=== PATIENT | male | born 1960 | race Caucasian/White ===

== ENCOUNTER 2016-07-22 11:59 | Emergency (ER) | payer MEDICARE, OTHER ==
[~2016-07-22] VITALS: Ht 170.2 cm; Wt 93.9 kg
[~2016-07-22 11:59] MED LIST: ACHD5005 PO; ASP81TEC PO; ASPI-999 PO; BSP5T PO; CEPH500C PO; FLUT9.9S NSEACH; FRSM40T PO; FURO40TA4 PO; HYDR50TA76 PO; LEVO50TA6 PO; LORA10TA7 PO; LOSA100T28 PO; LVT.05T PO; METH4TAB PO; METO-333 PO; METO25TA PO; NF-ESOM40C PO; NFVALS90T PO; PENI500T PO; POTA10TA10 PO; SERT100T8 PO; SIMV40TA2 PO; SIMV40TA4 PO; SRTR100T PO; SULF1TAB38 PO; ZPR40C PO
--- NOTE | 2016-07-22 12:05 | ED Cardiac General ---
History of Present Illness General Chief Complaint: Cardiac/General Problems Stated Complaint: LOW HR Source: patient Exam Limitations: no limitations History of Present Illness Time seen by provider: 12:02 Initial Comments Sent to ER from mental health clinic whom he sees for schizophrenia with reports of bradycardia. They routinely check vital signs during visits and found his pulse to be around 40s, did an EKG which showed a heart rate of 38. Patient was then sent here via private vehicle. He is asymptomatic and denies chest pain or shortness of breath, no syncope or near syncope. He states that he is fatigued but he just worked all night last night and has not yet been to bed. No history of this but he does see Dr. Horta for hypertension and "enlarged heart". He is currently on hydrocodone and amoxicillin for an abscessed tooth. He states "I feel fine". He is on Norvasc 2.5 mg daily and metoprolol 50 mg by mouth twice a day. Timing/Duration: other Severity: moderate Activities at Onset: none NTG SL FORM CARPENTER: No ASA po FORM CARPENTER: No Associated Systoms: Denies Symptoms Allergies and Home Medications Allergies Coded Allergies: No Known Drug Allergies (Unverified , 05/15/10) Home Medications Aspirin 81 Mg Tab.chew, 81 MG PO DAILY@1730, #14 Prescribed by: JUANITA ABBASI on 04/21/16 0718 Furosemide 40 Mg Tablet, 40 MG PO DAILY, #20 Prescribed by: JUANITA ABBASI on 04/21/16 0718 Levothyroxine Sodium 50 Mcg Tablet, 50 MCG PO DAILY, #20 Prescribed by: JUANITA ABBASI on 04/21/16 0718 Losartan Potassium 100 Mg Tablet, 100 MG PO DAILY@1730, (Reported) Metoprolol Tartrate 25 Mg Tablet, 25 MG PO BID, #20 LAST FILLED 02/17/16 #60 Prescribed by: JUANITA ABBASI on 04/21/16 0718 Potassium Chloride 10 Meq Tablet.er, 10 MEQ PO DAILY, #15 Prescribed by: JUANITA ABBASI on 04/21/16 0718 Sertraline HCl 100 Mg Tablet, 100 MG PO DAILY@1730, (Reported) Simvastatin 40 Mg Tablet, 40 MG PO DAILY@1730, (Reported) Ziprasidone 40 Mg Cap, 40 MG PO DAILY, (Reported) Ziprasidone 40 Mg Cap, 80 MG PO DAILY@1730, (Reported) TAKES 2 (40 MG) CAPSULES Review of Systems Constitutional: no symptoms reported, see HPI EENTM: No Symptoms Reported Respiratory: No Symptoms Reported Cardiovascular: No Symptoms Reported, Denies Chest Pain, Denies Edema, Denies Irregular Heart Rate, Denies Lightheadedness, Denies Palpitations, Denies Syncope Gastrointestinal: No Symptoms Reported Genitourinary: No Symptoms Reported Musculoskeletal: no symptoms reported Skin: no symptoms reported Psychiatric/Neurological: No Symptoms Reported Endocrine: No Symptoms Reported Past Aukrtsc-Qrmmhb-Thufcl Hx Patient Social History Type Used: Cigarettes Recent Hopitalizations: No Immunizations Up To Date Tetanus Booster (TDap): Less than 5yrs Date of Pneumonia Vaccine: Feb 01, 2012 Date of Influenza Vaccine: Mar 03, 2016 Seasonal Allergies Seasonal Allergies: Yes Surgeries HX Surgeries: Yes Surgeries: Appendectomy Respiratory Hx Respiratory Disorders: No Respiratory Disorders: Sleep Apnea Cardiovascular Hx Cardiac Disorders: Yes Cardiac Disorders: Heart Murmur, High Cholesterol, Hypertension Neurological Hx Neurological Disorders: No Reproductive System Hx Reproductive Disorders: No Genitourinary Hx Genitourinary Disorders: No Gastrointestinal Hx Gastrointestinal Disorders: No Gastrointestinal Disorders: Gastroesophageal Reflux Musculoskeletal Hx Musculoskeletal Disorders: Yes Musculoskeletal Disorders: Arthritis Endocrine Hx Endocrine Disorders: Yes Endocrine Disorders: Hypothyroidsim HEENT HX ENT Disorders: Yes HEENT Disorders: Glaucoma Loss of Vision: Denies Hearing Impairment: Denies Cancer Hx Cancer: No Psychosocial Hx Psychiatric Problems: Yes Behavioral Health Disorders: Anxiety, Depression Integumentary HX Skin/Integumentary Disorder: No Blood Transfusions Hx Blood Disorders: No Adverse Reaction to a Blood Tr: No Family Medical History Significant Family History: Heart Disease, Hypertension, Stroke Family Medial History: Physical Exam Vital Signs Vital Sign - Last 12Hours 07/22/16 12:02 Temp 97.9 Pulse 45 Resp 12 B/P (MAP) 164/122 Pulse Ox 95 O2 Delivery Room Air Capillary Refill : General Appearance: No Apparent Distress, WD/WN, Other (alert, talkative and without complaint) HEENT: PERRL/EOMI, TMs Normal Neck: Full Range of Motion, Normal Inspection Respiratory: Normal Breath Sounds, No Accessory Muscle Use, No Respiratory Distress Cardiovascular: No Murmur, Normal Peripheral Pulses, Bradycardia Gastrointestinal: Normal Bowel Sounds, Non Tender, Soft Extremity: Normal Capillary Refill, Normal Inspection Neurologic/Psychiatric: Alert, Oriented x3, No Motor/Sensory Deficits Skin: Normal Color, Warm/Dry Progress/Results/Core Measures Results/Orders Lab Results Laboratory Tests Test 07/22/16 12:00 Range/Units White Blood Count 8.0 4.3-11.0 10^3/uL Red Blood Count 4.74 4.35-5.85 10^6/uL Hemoglobin 14.4 13.3-17.7 G/DL Hematocrit 42 40-54 % Mean Corpuscular Volume 89 80-99 FL Mean Corpuscular Hemoglobin 30 25-34 PG Mean Corpuscular Hemoglobin Concent 34 32-36 G/DL Red Cell Distribution Width 13.6 10.0-14.5 % Platelet Count 177 130-400 10^3/uL Mean Platelet Volume 10.6 H 7.4-10.4 FL Neutrophils (%) (Auto) 57 42-75 % Lymphocytes (%) (Auto) 28 12-44 % Monocytes (%) (Auto) 12 0-12 % Eosinophils (%) (Auto) 3 0-10 % Basophils (%) (Auto) 0 0-10 % Neutrophils # (Auto) 4.5 1.8-7.8 X 10^3 Lymphocytes # (Auto) 2.2 1.0-4.0 X 10^3 Monocytes # (Auto) 1.0 0.0-1.0 X 10^3 Eosinophils # (Auto) 0.2 0.0-0.3 10^3/uL Basophils # (Auto) 0.0 0.0-0.1 10^3/uL Sodium Level 140 135-145 MMOL/L Potassium Level 4.1 3.6-5.0 MMOL/L Chloride Level 103 98-107 MMOL/L Carbon Dioxide Level 30 21-32 MMOL/L Anion Gap 7 5-14 MMOL/L Blood Urea Nitrogen 12 7-18 MG/DL Creatinine 1.00 0.60-1.30 MG/DL Estimat Glomerular Filtration Rate > 60 BUN/Creatinine Ratio 12 Glucose Level 95 70-105 MG/DL Calcium Level 9.0 8.5-10.1 MG/DL Magnesium Level 2.3 1.8-2.4 MG/DL Total Bilirubin 1.2 H 0.1-1.0 MG/DL Aspartate Amino Transf (AST/SGOT) 25 5-34 U/L Alanine Aminotransferase (ALT/SGPT) 20 0-55 U/L Alkaline Phosphatase 46 40-136 U/L Troponin I < 0.30 <0.30 NG/ML B-Type Natriuretic Peptide 205.7 H <100.0 PG/ML Total Protein 7.5 6.4-8.2 G/DL Albumin 4.2 3.2-4.5 G/DL Thyroid Stimulating Hormone (TSH) 2.67 0.35-4.94 UIU/ML My Orders Orders - ISABELL MARIN APRN Cbc With Automated Diff (07/22/16 12:01) Comprehensive Metabolic Panel (07/22/16 12:01) Thyroid Stimulating Hormone (07/22/16 12:) Magnesium (07/22/16 12:) Troponin I (07/22/16 12:) BNP (07/22/16 12:) Ekg Tracing (07/22/16:) Continuous Ekg Monitoring (07/22/16 12:) Chest 1 View, Ap/Pa Only (07/22/16 12:) Vital Signs/I&O Vital Sign - Last 12Hours 07/22/16 12:02 Temp 97.9 Pulse 45 Resp 12 B/P (MAP) 164/122 Pulse Ox 95 O2 Delivery Room Air Progress Note : Progress Note Patient's old EKG from April 20, 2016 showed a heart rate of 50, sinus. Today's EKG shows a heart rate of 42 sinus. There is a pre-existing intraventricular conduction delay Departure Communication Progress Notes 1250-Also noted that during his 2016 admission for chest pain in April he had a heart rate down to upper 30s at night, some bradycardia is not a new problem of his. As mentioned he is completely asymptomatic without syncope or near syncope and blood pressure is adequate at 134/89 currently. 1308-patient remains asymptomatic. I discussed the case with Dr. Vasquez and the patient can be discharged home given normal labs and no EKG changes which is disabled there is no QT prolongation, the rhythm is sinus bradycardia without block and blood pressure is adequate. I will have him reduce his dose of metoprolol from 50 mg twice a day to 25 mg twice a day. Blood pressure 159/ 90 currently so I will add lisinopril 10 mg daily to his regimen. Impression Impression: Primary Impression: Bradycardia Disposition: HOME, SELF-CARE Condition: Stable Departure-Patient Inst. Decision time for Depature: 13:09 Referrals: JUANITA ABBASI DO (PCP/Family) Primary Care Physician ALEIDA VASQUEZ MD FACP [facility] Patient Instructions: Bradycardia (DC) Add. Discharge Instructions: 1. Return to the emergency room or call 911 if you feel lightheaded or short of breath or develop any chest pain 2. Follow-up with Dr. Horta next week. Call the office today to make an appointment for follow-up 3. Cut your dose of metoprolol in half. Currently take 50 mg twice a day, reduce this to 25 mg twice a day. All discharge instructions reviewed with patient and/or family. Voiced understanding. Scripts Lisinopril (Lisinopril) 10 Mg Tablet 10 MG PO DAILY for 10 Days, #10 TAB Prov: ISABELL MARIN APRN 07/22/16 Copy Copies To 1: SEGUNDO HORTA MD Copies To 2: JUANITA ABBASI PETER J APRN Jul 22, 2016 12:05
[2016-07-22 12:17] LABS: BASOPHILS % (AUTO) 0 % (0-10); EOSINOPHILS # (AUTO) 0.2 10^3/uL (0.0-0.3); EOSINOPHILS % (AUTO) 3 % (0-10); LYMPHOCYTES # (AUTO) 2.2 X 10^3 (1.0-4.0); LYMPHOCYTES % (AUTO) 28 % (12-44); MEAN CORPUSCULAR HEMOGLOBIN 30 PG (25-34); MEAN CORPUSCULAR HGB CONC 34 G/DL (32-36); MEAN CORPUSCULAR VOLUME 89 FL (80-99); MEAN PLATELET VOLUME 10.6 FL (7.4-10.4); MONOCYTES % (AUTO) 12 % (0-12); NEUTROPHILS # (AUTO) 4.5 X 10^3 (1.8-7.8); NEUTROPHILS % (AUTO) 57 % (42-75); PLATELET COUNT 177 10^3/uL (130-400); RED BLOOD COUNT 4.74 10^6/uL (4.35-5.85); RED CELL DISTRIBUTION WIDTH 13.6 % (10.0-14.5)
[2016-07-22 12:38] LABS: ALANINE AMINOTRANSFERASE 20 U/L (0-55); ALBUMIN 4.2 G/DL (3.2-4.5); ANION GAP 7 MMOL/L (5-14); ASPARTATE AMINO TRANSFERASE 25 U/L (5-34); BILIRUBIN,TOTAL 1.2 MG/DL (0.1-1.0); BLOOD UREA NITROGEN 12 MG/DL (7-18); BUN/CREATININE RATIO 12; CARBON DIOXIDE 30 MMOL/L (21-32); CHLORIDE 103 MMOL/L (98-107); GFR ESTIMATED > 60; GLUCOSE 95 MG/DL (70-105); MAGNESIUM 2.3 MG/DL (1.8-2.4); POTASSIUM 4.1 MMOL/L (3.6-5.0); SODIUM 140 MMOL/L (135-145); TOTAL PROTEIN 7.5 G/DL (6.4-8.2)
--- NOTE | 2016-07-22 12:48 | Diagnostic Imaging Report ---
INDICATION: Tired FINDINGS: Portable upright view of the chest is compared to exam from April 20. The lungs are clear. The heart, mediastinum, pulmonary vascularity and visualized bony thorax are normal. IMPRESSION: Negative chest. Dictated by: Dictated on workstation # [id number]
[2016-07-22 12:57] LABS: THYROID STIMULATING HORMONE 2.67 UIU/ML (0.35-4.94); TROPONIN I < 0.30 NG/ML (<0.30)
[2016-07-22] MEDS ORDERED: LISI10TA2 PO (13:19)
[2016-07-22 13:20] VITALS: BP 154/92
--- OUTSIDE RECORDS SUMMARY | 2016-07-26 04:55 | XMS REPORT | Continuity of Care Document ---
Author Author [facility] Address Unknown Phone Unavailable Allergies Active Description Code Type Severity Reaction Onset Reported/Identified Relationship to Patient Clinical Status Yes No Known Drug Allergies [id number] Drug Allergy Unknown N/ A 05/15/2010 Yes hydrOXYzine 50 mg tablet Drug Allergy N/A N/A 05/20/2013 Medications Problems Date Dx Coded Attending Type Code Diagnosis Diagnosed By 02/18/2010 CARL LLOYD APRN 300.00 AN ANXIETY UNSPEC 02/18/2010 CARL LLOYD APRN 300.00 AN ANXIETY UNSPEC 02/18/2010 300.00 AN ANXIETY UNSPEC 02/18/2010 CARL LLOYD APRN 300.00 AN ANXIETY UNSPEC 02/18/2010 WHITE DDS, MARIAELENA J 300.00 AN ANXIETY UNSPEC 02/18/2010 CARL LLOYD APRN 300.00 AN ANXIETY UNSPEC 02/18/2010 WHITE DDS, MARIAELENA J 300.00 AN ANXIETY UNSPEC 02/18/2010 CARL LLOYD APRN 300.00 AN ANXIETY UNSPEC 02/18/2010 300.00 AN ANXIETY UNSPEC 02/18/2010 CARL LLOYD APRN 300.00 AN ANXIETY UNSPEC 02/18/2010 PARAMJIT CASTRO M 300.00 AN ANXIETY UNSPEC 02/18/2010 PARAMJIT CASTRO M 300.00 AN ANXIETY UNSPEC 02/18/2010 PARAMJIT CASTRO M 300.00 AN ANXIETY UNSPEC 04/16/2010 CARL LLOYD APRN 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 04/16/2010 CARL LLOYD APRN 300.02 AN GEN ANXIETY 04/16/2010 CARL LLOYD APRN 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 04/16/2010 CARL LLOYD APRN 300.02 AN GEN ANXIETY 04/16/2010 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 04/16/2010 300.02 AN GEN ANXIETY 04/16/2010 PREMA DODD CARL LAU 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 04/16/2010 PREMA DODD CARL LAU 300.02 AN GEN ANXIETY 04/16/2010 WHITE DDS, MARIAELENA J 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 04/16/2010 WHITE DDS, MARIAELENA J 300.02 AN GEN ANXIETY 04/16/2010 PREMA DODD CARL LAU 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 04/16/2010 LLOYD APRN, CARL LAU 300.02 AN GEN ANXIETY 04/16/2010 WHITE DDS, MARIAELENA J 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 04/16/2010 WHITE DDS, MARIAELENA J 300.02 AN GEN ANXIETY 04/16/2010 PREMA DODD CARL LAU 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 04/16/2010 PREMA DODD CARL JUDI 300.02 AN GEN ANXIETY 04/16/2010 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 04/16/2010 300.02 AN GEN ANXIETY 04/16/2010 LLOYDCARLA DODD CARL LAU 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 04/16/2010 LLOYDCARLA DODD CARL LAU 300.02 AN GEN ANXIETY 04/16/2010 ROB COBB, PARAMJIT M 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 04/16/2010 PARAMJIT CASTRO M 300.02 AN GEN ANXIETY 04/16/2010 ROB AWNING FRAME MAKER, PARAMJIT M 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 04/16/2010 ROB AWNING FRAME MAKER, PARAMJIT M 300.02 AN GEN ANXIETY 04/16/2010 ROB AWNING FRAME MAKER, PARAMJIT M 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 04/16/2010 ROB AWNING FRAME MAKER, PARAMJIT M 300.02 AN GEN ANXIETY 05/15/2010 Ot 401.9 05/15/2010 Ot 789.06 05/15/2010 Ot V58.66 05/15/2010 Ot V58.69 07/28/2010 PREMA DODD CARL LAU 295.30 P SCHIZO PARANOID UNSPECIFIED 07/28/2010 LLOYD DIRECTOR PAYMENT, CARL LAU 295.30 P SCHIZO PARANOID UNSPECIFIED 07/28/2010 295.30 P SCHIZO PARANOID UNSPECIFIED 07/28/2010 LLOYD DIRECTOR PAYMENTCARL 295.30 P SCHIZO PARANOID UNSPECIFIED 07/28/2010 WHITE DDS, MARIAELENA J 295.30 P SCHIZO PARANOID UNSPECIFIED 07/28/2010 LLOYD DIRECTOR PAYMENT CARL LAU 295.30 P SCHIZO PARANOID UNSPECIFIED 07/28/2010 WHITE DDS, MARIAELENA J 295.30 P SCHIZO PARANOID UNSPECIFIED 07/28/2010 LLOYD DIRECTOR PAYMENTCARL 295.30 P SCHIZO PARANOID UNSPECIFIED 07/28/2010 295.30 P SCHIZO PARANOID UNSPECIFIED 07/28/2010 LLOYD DIRECTOR PAYMENT, CARL LAU 295.30 P SCHIZO PARANOID UNSPECIFIED 07/28/2010 ROB AWNING FRAME MAKER, PARAMJIT M 295.30 P SCHIZO PARANOID UNSPECIFIED 07/28/2010 ROB AWNING FRAME MAKER, PARAMJIT M 295.30 P SCHIZO PARANOID UNSPECIFIED 07/28/2010 ROB AWNING FRAME MAKER, PARAMJIT M 295.30 P SCHIZO PARANOID UNSPECIFIED 04/22/2012 LLOYD DIRECTOR PAYMENT, CARL LAU 295.70 P SCHIZO AFFECTIVE 04/22/2012 LLOYD DIRECTOR PAYMENT, CARL LAU 295.70 P SCHIZO AFFECTIVE 04/22/2012 295.70 P SCHIZO AFFECTIVE 04/22/2012 LLOYD DIRECTOR PAYMENT, CARL LAU 295.70 P SCHIZO AFFECTIVE 04/22/2012 WHITE DDS, MARIAELENA J 295.70 P SCHIZO AFFECTIVE 04/22/2012 LLOYD DIRECTOR PAYMENT CARL LAU 295.70 P SCHIZO AFFECTIVE 04/22/2012 WHITE DDS, MARIAELENA J 295.70 P SCHIZO AFFECTIVE 04/22/2012 LLOYD DIRECTOR PAYMENT, CARL LAU 295.70 P SCHIZO AFFECTIVE 04/22/2012 LLOYD DIRECTOR PAYMENT CARL PACHECOH 295.70 P SCHIZO AFFECTIVE 04/22/2012 ROB AWNING FRAME MAKER, PARAMJIT M 295.70 P SCHIZO AFFECTIVE 04/22/2012 ROB AWNING FRAME MAKER, PARAMJIT M 295.70 P SCHIZO AFFECTIVE 04/22/2012 ROB AWNING FRAME MAKER, PARAMJIT M 295.70 P SCHIZO AFFECTIVE 09/03/2012 TODD BARRIOS DO Ot 682.6 CELLULITIS OF LEG 02/18/2013 DOREEN MELTON, CHRISTOPHER Martin Ot 521.00 UNSPEC DENTAL CARIES 02/18/2013 DOREEN MELTON, CHRISTOPHER Martin Ot 525.9 DENTAL DISORDER NOS 04/13/2014 ANDRE AZUL DO Gill Ot 327.23 OBSTRUCTIVE SLEEP APNEA (ADULT) (PEDIATR 08/07/2014 Ot 959.4 08/07/2014 Ot E000.8 08/07/2014 Ot E849.0 08/07/2014 Ot E928.9 08/07/2014 GELLENDER DO, JUANITA Amaya Ot 593.9 08/07/2014 GELLENDER DO, JUANITA Amaya Ot 789.00 08/07/2014 GELLENDER DO, JUANITA Amaya Ot 793.6 09/04/2014 GELLENDER DO, JUANITA Amaya Ot 715.35 09/13/2014 Ot 959.4 09/13/2014 Ot E000.8 09/13/2014 Ot E849.0 09/13/2014 Ot E928.9 09/13/2014 GELLENDER DO, JUANITA Amaya Ot 593.9 09/13/2014 GELLENDER DO, JUANITA Amaya Ot 789.00 09/13/2014 GELLENDER DO, JUANITA Amaya Ot 793.6 09/13/2014 GELLENDER DO, JUANITA Amaya Ot 715.35 10/12/2014 GELLENDER DOJUANITA Ot 719.45 09/07/2015 WILMER MELTON, KYLER Haines Ot H69.90 UNSPECIFIED EUSTACHIAN TUBE DISORDER , UN 09/07/2015 WILMER MELTON, KYLER Haines Ot H73.893 OTHER SPECIFIED DISORDERS OF TYMPANIC ME 09/07/2015 WILMER MELTON, KYLER Haines Ot J30.9 ALLERGIC RHINITIS, UNSPECIFIED 03/20/2016 GELLENDER DOJUANITA Ot 593.9 RENAL URETERAL DIS NOS 03/20/2016 GELLENDER DOJUANITA Ot 789.00 ABDOMINAL PAIN, UNSPECIFIED SITE 03/20/2016 GELLENDER DOJUANITA Ot 793.6 NOSP (ABN) FINDINGS ON RADIOLOGICAL OT 03/20/2016 GELLENDER DOJUANITA Ot 715.35 LOC OSTEOARTH NOS-PELVIS 03/20/2016 GELLENDER DO, JUANITA Amaya Ot 719.45 JOINT PAIN-PELVIS 04/15/2016 GELLENDER DO, JUANITA Amaya Ot R04.2 HEMOPTYSIS 04/15/2016 GELLENDER DO, JUANITA Amaya Ot R05 COUGH 04/15/2016 GELLENDER DO, JUANITA Amaya Ot R09.89 OTH SYMPTOMS AND SIGNS INVOLVING THE CIR 04/21/2016 GELLENDER DO, JUANITA Amaya Ot E03.9 HYPOTHYROIDISM, UNSPECIFIED 04/21/2016 GELLENDER DO, JUANITA Amaya Ot E78.5 HYPERLIPIDEMIA, UNSPECIFIED 04/21/2016 GELLENDER DO, JUANITA Amaya Ot F32.9 MAJOR DEPRESSIVE DISORDER, SINGLE EPISOD 04/21/2016 GELLENDER DO, JUANITA Amaya Ot F41.9 ANXIETY DISORDER, UNSPECIFIED 04/21/2016 GELLENDER DO, JUANITA Amaya Ot G47.33 OBSTRUCTIVE SLEEP APNEA (ADULT) ( PEDIATR 04/21/2016 GELLENDER DO, JUANITA Amaya Ot I10 ESSENTIAL (PRIMARY) HYPERTENSION 04/21/2016 GELLENDER DO, JUANITA Amaya Ot K21.9 GASTRO-ESOPHAGEAL REFLUX DISEASE WITHOUT 04/21/2016 GELLENDER DO, JUANITA Amaya Ot R07.9 CHEST PAIN, UNSPECIFIED 04/21/2016 GELLENDER DO, JUANITA Amaya Ot Z87.891 PERSONAL HISTORY OF NICOTINE DEPENDENCE 04/21/2016 GELLENDER DO, JUANITA Amaya Ot E03.9 HYPOTHYROIDISM, UNSPECIFIED 04/21/2016 GELLENDER DO, JUANITA Amaya Ot E78.5 HYPERLIPIDEMIA, UNSPECIFIED 04/21/2016 GELLENDER DO, JUANITA Amaya Ot F32.9 MAJOR DEPRESSIVE DISORDER, SINGLE EPISOD 04/21/2016 GELLENDER DO, JUANITA Amaya Ot F41.9 ANXIETY DISORDER, UNSPECIFIED 04/21/2016 GELLENDER DO, JUANITA Amaya Ot G47.33 OBSTRUCTIVE SLEEP APNEA (ADULT) ( PEDIATR 04/21/2016 GELLENDER DO, JUANITA Jose Luis Ot I10 ESSENTIAL (PRIMARY) HYPERTENSION 04/21/2016 GELLENDER DO, JUANITA Amaya Ot K21.9 GASTRO-ESOPHAGEAL REFLUX DISEASE WITHOUT 04/21/2016 GELLENDER DO, JUANITA Amaya Ot R07.9 CHEST PAIN, UNSPECIFIED 04/21/2016 GELLENDER DO, JUANITA Amaya Ot Z87.891 PERSONAL HISTORY OF NICOTINE DEPENDENCE Procedures Code Description [place] [address] PSYCH IND W/MED CK 20 04/27/2012 Results Test Result Range Complete blood count (CBC) with automated white blood cell (WBC) differential - 03/20/16 10:53 Blood leukocytes automated count (number/volume) 13.1 10*3/ uL 4.3-11.0 Blood erythrocytes automated count (number/volume) 4.44 10*6 /uL 4.35-5.85 Venous blood hemoglobin measurement (mass/volume) 13.7 g/dL 13.3-17.7 Blood hematocrit (volume fraction) 41 % 40-54 Automated erythrocyte mean corpuscular volume 92 [foz_us] 80-99 Automated erythrocyte mean corpuscular hemoglobin (mass per erythrocyte) 31 pg 25-34 Automated erythrocyte mean corpuscular hemoglobin concentration measurement ( mass/volume) 34 g/dL 32-36 Automated erythrocyte distribution width ratio 14.8 % 10.0-14.5 Automated blood platelet count (count/volume) 130 10*3/uL 130-400 Automated blood platelet mean volume measurement 10.9 [foz_ us] 7.4-10.4 Automated blood neutrophils/100 leukocytes 73 % 42-75 Automated blood lymphocytes/100 leukocytes 14 % 12-44 Blood monocytes/100 leukocytes 12 % 0-12 Automated blood eosinophils/100 leukocytes 1 % 0-10 Automated blood basophils/100 leukocytes 0 % 0-10 Blood neutrophils automated count (number/volume) 9.6 10*3 1.8-7.8 Blood lymphocytes automated count (number/volume) 1.8 10*3 1.0-4.0 Blood monocytes automated count (number/volume) 1.6 10*3 0.0-1.0 Automated eosinophil count 0.2 10*3/uL 0.0-0.3 Automated blood basophil count (count/volume) 0.0 10*3/uL 0.0-0.1 Complete blood count (CBC) with automated white blood cell (WBC) differential - 04/20/16 14:52 Blood leukocytes automated count (number/volume) 8.6 10*3/ uL 4.3-11.0 Blood erythrocytes automated count (number/volume) 4.45 10*6 /uL 4.35-5.85 Venous blood hemoglobin measurement (mass/volume) 13.4 g/dL 13.3-17.7 Blood hematocrit (volume fraction) 41 % 40-54 Automated erythrocyte mean corpuscular volume 92 [foz_us] 80-99 Automated erythrocyte mean corpuscular hemoglobin (mass per erythrocyte) 30 pg 25-34 Automated erythrocyte mean corpuscular hemoglobin concentration measurement ( mass/volume) 33 g/dL 32-36 Automated erythrocyte distribution width ratio 14.2 % 10.0-14.5 Automated blood platelet count (count/volume) 150 10*3/uL 130-400 Automated blood platelet mean volume measurement 10.1 [foz_ us] 7.4-10.4 Automated blood neutrophils/100 leukocytes 59 % 42-75 Automated blood lymphocytes/100 leukocytes 28 % 12-44 Blood monocytes/100 leukocytes 11 % 0-12 Automated blood eosinophils/100 leukocytes 2 % 0-10 Automated blood basophils/100 leukocytes 0 % 0-10 Blood neutrophils automated count (number/volume) 5.1 10*3 1.8-7.8 Blood lymphocytes automated count (number/volume) 2.4 10*3 1.0-4.0 Blood monocytes automated count (number/volume) 0.9 10*3 0.0-1.0 Automated eosinophil count 0.2 10*3/uL 0.0-0.3 Automated blood basophil count (count/volume) 0.0 10*3/uL 0.0-0.1 Comprehensive metabolic panel - 04/20/16 14:52 Serum or plasma sodium measurement (moles/volume) 138 mmol/ L 135-145 Serum or plasma potassium measurement (moles/volume) 3.7 mmol/L 3.6-5.0 Serum or plasma chloride measurement (moles/volume) 103 mmol /L 98-107 Carbon dioxide 28 mmol/L 21-32 Serum or plasma anion gap determination (moles/volume) 7 mmol/L 5-14 Serum or plasma urea nitrogen measurement (mass/volume) 14 mg/dL 7-18 Serum or plasma creatinine measurement (mass/volume) 0.89 mg /dL 0.60-1.30 Serum or plasma urea nitrogen/creatinine mass ratio 16 NRG Serum or plasma creatinine measurement with calculation of estimated glomerular filtration rate > NRG Serum or plasma glucose measurement (mass/volume) 98 mg/dL 70-105 Serum or plasma calcium measurement (mass/volume) 8.7 mg/dL 8.5-10.1 Serum or plasma total bilirubin measurement (mass/volume) 0.9 mg/dL 0.1-1.0 Serum or plasma alkaline phosphatase measurement (enzymatic activity/volume) 52 U/L 40-136 Serum or plasma aspartate aminotransferase measurement (enzymatic activity/ volume) 26 U/L 5-34 Serum or plasma alanine aminotransferase measurement (enzymatic activity/volume ) 29 U/L 0-55 Serum or plasma protein measurement (mass/volume) 7.2 g/dL 6.4-8.2 Serum or plasma albumin measurement (mass/volume) 4.1 g/dL 3.2-4.5 Magnesium - 04/20/16 14:52 Magnesium 2.3 mg/dL 1.8-2.4 PT panel in platelet poor plasma by coagulation assay - 04/20/16 14:52 Prothrombin time (PT) in platelet poor plasma by coagulation assay 12.4 s 12.2-14.7 INR in platelet poor plasma or blood by coagulation assay 1.0 0.8-1.4 Activated partial thromboplastin time (aPTT) in platelet poor plasma bycoagulation assay - 04/20/16 14:52 Activated partial thromboplastin time (aPTT) in platelet poor plasma bycoagulation assay 31 s 24-35 Serum or plasma troponin i.cardiac measurement (mass/volume) - 04/20/16 14:52 Serum or plasma troponin i.cardiac measurement (mass/volume) < ng/mL <0.30 Myoglobin, serum - 04/20/16 14:52 Myoglobin, serum 88.6 ng/mL 10.0-92.0 THYROID STIMULATING HORMONE - 04/20/16 14:52 THYROID STIMULATING HORMONE 3.99 u[iU]/mL 0.35-4.94 Serum or plasma thyroxine (T4) free measurement (mass/volume) - 04/20/16 14:52 Serum or plasma thyroxine (T4) free measurement (mass/volume) 0.92 ng/dL 0.70-1.48 Serum or plasma troponin i.cardiac measurement (mass/volume) - 04/20/16 21:19 Serum or plasma troponin i.cardiac measurement (mass/volume) < ng/mL <0.30 Automated blood complete blood count (hemogram) panel - 04/21/16 03:00 Blood leukocytes automated count (number/volume) 7.4 10*3/ uL 4.3-11.0 Blood erythrocytes automated count (number/volume) 4.45 10*6 /uL 4.35-5.85 Venous blood hemoglobin measurement (mass/volume) 13.4 g/dL 13.3-17.7 Blood hematocrit (volume fraction) 41 % 40-54 Automated erythrocyte mean corpuscular volume 92 [foz_us] 80-99 Automated erythrocyte mean corpuscular hemoglobin (mass per erythrocyte) 30 pg 25-34 Automated erythrocyte mean corpuscular hemoglobin concentration measurement ( mass/volume) 33 g/dL 32-36 Automated erythrocyte distribution width ratio 14.4 % 10.0-14.5 Automated blood platelet count (count/volume) 133 10*3/uL 130-400 Automated blood platelet mean volume measurement 10.2 [foz_ us] 7.4-10.4 Comprehensive metabolic panel - 04/21/16 03:00 Serum or plasma sodium measurement (moles/volume) 141 mmol/ L 135-145 Serum or plasma potassium measurement (moles/volume) 3.9 mmol/L 3.6-5.0 Serum or plasma chloride measurement (moles/volume) 105 mmol /L 98-107 Carbon dioxide 28 mmol/L 21-32 Serum or plasma anion gap determination (moles/volume) 8 mmol/L 5-14 Serum or plasma urea nitrogen measurement (mass/volume) 13 mg/dL 7-18 Serum or plasma creatinine measurement (mass/volume) 0.79 mg /dL 0.60-1.30 Serum or plasma urea nitrogen/creatinine mass ratio 16 NRG Serum or plasma creatinine measurement with calculation of estimated glomerular filtration rate > NRG Serum or plasma glucose measurement (mass/volume) 103 mg/dL 70-105 Serum or plasma calcium measurement (mass/volume) 8.6 mg/dL 8.5-10.1 Serum or plasma total bilirubin measurement (mass/volume) 1.0 mg/dL 0.1-1.0 Serum or plasma alkaline phosphatase measurement (enzymatic activity/volume) 49 U/L 40-136 Serum or plasma aspartate aminotransferase measurement (enzymatic activity/ volume) 23 U/L 5-34 Serum or plasma alanine aminotransferase measurement (enzymatic activity/volume ) 28 U/L 0-55 Serum or plasma protein measurement (mass/volume) 6.6 g/dL 6.4-8.2 Serum or plasma albumin measurement (mass/volume) 3.8 g/dL 3.2-4.5 Magnesium - 04/21/16 03:00 Magnesium 2.3 mg/dL 1.8-2.4 Lipid 1996 panel - 04/21/16 03:00 Serum or plasma triglyceride measurement (mass/volume) 278 mg/dL <150 Serum or plasma cholesterol measurement (mass/volume) 169 mg /dL < 200 Serum or plasma cholesterol in HDL measurement (mass/volume) 36 mg/dL 40-60 Cholesterol in LDL [mass/volume] in serum or plasma by direct assay 93 mg/dL 1-129 Serum or plasma cholesterol in VLDL measurement (mass/volume) 56 mg/dL 5-40 Serum or plasma troponin i.cardiac measurement (mass/volume) - 04/21/16 03:00 Serum or plasma troponin i.cardiac measurement (mass/volume) < ng/mL <0.30 Complete blood count (CBC) with automated white blood cell (WBC) differential - 07/22/16 12:00 Blood leukocytes automated count (number/volume) 8.0 10*3/ uL 4.3-11.0 Blood erythrocytes automated count (number/volume) 4.74 10*6 /uL 4.35-5.85 Venous blood hemoglobin measurement (mass/volume) 14.4 g/dL 13.3-17.7 Blood hematocrit (volume fraction) 42 % 40-54 Automated erythrocyte mean corpuscular volume 89 [foz_us] 80-99 Automated erythrocyte mean corpuscular hemoglobin (mass per erythrocyte) 30 pg 25-34 Automated erythrocyte mean corpuscular hemoglobin concentration measurement ( mass/volume) 34 g/dL 32-36 Automated erythrocyte distribution width ratio 13.6 % 10.0-14.5 Automated blood platelet count (count/volume) 177 10*3/uL 130-400 Automated blood platelet mean volume measurement 10.6 [foz_ us] 7.4-10.4 Automated blood neutrophils/100 leukocytes 57 % 42-75 Automated blood lymphocytes/100 leukocytes 28 % 12-44 Blood monocytes/100 leukocytes 12 % 0-12 Automated blood eosinophils/100 leukocytes 3 % 0-10 Automated blood basophils/100 leukocytes 0 % 0-10 Blood neutrophils automated count (number/volume) 4.5 10*3 1.8-7.8 Blood lymphocytes automated count (number/volume) 2.2 10*3 1.0-4.0 Blood monocytes automated count (number/volume) 1.0 10*3 0.0-1.0 Automated eosinophil count 0.2 10*3/uL 0.0-0.3 Automated blood basophil count (count/volume) 0.0 10*3/uL 0.0-0.1 Comprehensive metabolic panel - 07/22/16 12:00 Serum or plasma sodium measurement (moles/volume) 140 mmol/ L 135-145 Serum or plasma potassium measurement (moles/volume) 4.1 mmol/L 3.6-5.0 Serum or plasma chloride measurement (moles/volume) 103 mmol /L 98-107 Carbon dioxide 30 mmol/L 21-32 Serum or plasma anion gap determination (moles/volume) 7 mmol/L 5-14 Serum or plasma urea nitrogen measurement (mass/volume) 12 mg/dL 7-18 Serum or plasma creatinine measurement (mass/volume) 1.00 mg /dL 0.60-1.30 Serum or plasma urea nitrogen/creatinine mass ratio 12 NRG Serum or plasma creatinine measurement with calculation of estimated glomerular filtration rate > NRG Serum or plasma glucose measurement (mass/volume) 95 mg/dL 70-105 Serum or plasma calcium measurement (mass/volume) 9.0 mg/dL 8.5-10.1 Serum or plasma total bilirubin measurement (mass/volume) 1.2 mg/dL 0.1-1.0 Serum or plasma alkaline phosphatase measurement (enzymatic activity/volume) 46 U/L 40-136 Serum or plasma aspartate aminotransferase measurement (enzymatic activity/ volume) 25 U/L 5-34 Serum or plasma alanine aminotransferase measurement (enzymatic activity/volume ) 20 U/L 0-55 Serum or plasma protein measurement (mass/volume) 7.5 g/dL 6.4-8.2 Serum or plasma albumin measurement (mass/volume) 4.2 g/dL 3.2-4.5 Magnesium - 07/22/16 12:00 Magnesium 2.3 mg/dL 1.8-2.4 Serum or plasma lithium measurement (moles/volume) - 07/22/16 12:00 BNP level 205.7 pg/mL <100.0 Serum or plasma troponin i.cardiac measurement (mass/volume) - 07/22/16 12:00 Serum or plasma troponin i.cardiac measurement (mass/volume) < ng/mL <0.30 THYROID STIMULATING HORMONE - 07/22/16 12:00 THYROID STIMULATING HORMONE 2.67 u[iU]/mL 0.35-4.94 Encounters ACCT No. Visit Date/Time Discharge Status Pt. Type Provider Facility Loc./Unit Complaint [id number] 07/27/2014 09:24:00 07/27/2014 23: 59:59 CLS Outpatient ROB CNS, PARAMJIT M [id number] 03/14/2014 09:29:00 03/14/2014 23: 59:59 CLS Outpatient ROBPARAMJIT PIZARRO [id number] 03/14/2014 09:29:00 03/14/2014 23: 59:59 CLS Outpatient ROB COBB PARAMJIT M [id number] 11/17/2013 10:16:00 11/17/2013 23: 59:59 CLS Outpatient CARL LLOYD APRN [id number] 08/18/2013 09:50:00 08/18/2013 23: 59:59 CLS Outpatient CARL LLOYD APRN [id number] 07/21/2013 09:02:00 07/21/2013 23: 59:59 CLS Outpatient MARIAELENA SALAZAR DDS [id number] 05/20/2013 13:30:00 05/20/2013 23: 59:59 CLS Outpatient CARL LLOYD APRN [id number] 03/10/2013 11:50:00 03/10/2013 23: 59:59 CLS Outpatient MARIAELENA SALAZAR DDS [id number] 01/27/2013 13:19:00 01/27/2013 23: 59:59 CLS Outpatient CARL LLOYD APRN [id number] 07/28/2012 10:27:00 07/28/2012 23: 59:59 CLS Outpatient CARL LLOYD APRN [id number] 04/22/2012 10:07:00 04/22/2012 23: 59:59 CLS Outpatient CARL LLOYD APRN [id number] 01/22/2012 10:02:00 01/22/2012 23:59 :59 CLS Outpatient [id number] 10/28/2012 10:46:00 Document Registration
--- OUTSIDE RECORDS SUMMARY | 2016-07-26 04:55 | XMS REPORT ---
Author Author PARAMJIT RIVAS Organization [employer] Address Unknown Phone Unavailable Care Team Providers Care Bricklayer Name Role Phone PARAMJIT RIVAS CP Unavailable Allergies, Adverse Reactions, Alerts Substance Reaction Event Type HydrOXYzine HCl Extreme drowsiness Drug Allergy Problems Problem Type Condition Code Onset Dates Condition Status Assessment Schizoaffective disorder, unspecified 295.70 Active Problem Schizoaffective disorder, unspecified 295.70 Active Medications Medication Code System Code Instructions Start Date End Date Status Dosage Losartan Potassium [facility] [address]-63 100 MG Orally Once a day 1 tablet Sertraline HCl [facility] 65054165584 100 MG Orally Once a day 1 tablet Furosemide [facility] [address]-31 40 MG Orally Once a day 1 tablet Levothyroxine Sodium [facility] [address]-22 50 MCG Orally Once a day 1 tablet Aspirin Adult Low Strength [facility] [address]-63 81 MG Orally Once a day 1 tablet Vistaril [facility] [address]-95 25 MG Orally every 6 hrs July 27, 2014 1 capsule as needed Geodon [facility] [address]-52 40 MG Orally one tablet with dinner and two tablets at bedtime take as directed Simvastatin [facility] [address]-41 40 MG Orally Once a day 1 tablet in the evening Metoprolol Tartrate [facility] [address]-93 25 MG Orally Once a day 1 tablet Procedures Procedure Coding System Code Date Office Visit, Est Pt., Level 3 CPT-4 48882 Jan 25, 2015 Vital Signs Date/Time: Jan 25, 2015 Temperature 98.0 F Weight 209.3 lbs Height 66.5 in BMI 33.27 Index Blood Pressure Diastolic 102 mmHg Blood Pressure Systolic 165 mmHg Cardiac Monitoring Heart Rate 64 bpm Results No Known Results Summary Purpose [employer] Submission
--- OUTSIDE RECORDS SUMMARY | 2016-07-26 04:55 | XMS REPORT ---
Author Author ELMO URIARTE Organization [employer] Address Unknown Phone Unavailable Care Team Providers Care Commercial Green Retrofit Architect Name Role Phone ELMO URIARTE CP Unavailable Allergies No Known Allergies Problems Problem Type Condition Code Onset Dates Condition Status Assessment Encounter for immunization Z23 Active Problem Schizoaffective disorder, unspecified 295.70 Active Medications No Known Medications Procedures Procedure Coding System Code Date SINGLE IMMUNIZATION ADMIN CPT-4 51994 Feb 20, 2015 FLUARIX QUAD (3 & UP)-GSK-2014 CPT-4 38014 Feb 20, 2015 Results No Known Results Immunizations Vaccine Administration Date FLUARIX QUAD (3 & UP)-GSK-2014Feb 20, 2015 Summary Purpose [employer] Submission
--- OUTSIDE RECORDS SUMMARY | 2016-07-26 04:55 | XMS REPORT ---
Author Author PARAMJIT RIVAS [facility] eClinicalWorks Address Unknown Phone Unavailable Care Team Providers Care Abstract Checker Name Role Phone PARAMJIT RIVAS CP Unavailable Allergies, Adverse Reactions, Alerts Substance Reaction Event Type HydrOXYzine HCl Extreme drowsiness Drug Allergy Problems Problem Type Condition Code Onset Dates Condition Status Assessment Schizoaffective disorder F25.9 Active Problem Schizoaffective disorder, unspecified 295.70 Active Medications Medication Code System Code Instructions Start Date End Date Status Dosage Aspirin Adult Low Strength [facility] [address]-15 81 MG Orally Once a day 1 tablet Geodon [facility] [address]-57 40 MG Orally one tablet with dinner and two tablets at bedtime take as directed Vistaril [facility] [address]-90 25 MG Orally every 6 hrs July 27, 2014 1 capsule as needed Metoprolol Tartrate [facility] [address]-04 25 MG Orally Once a day 1 tablet Losartan Potassium [facility] [address]-59 100 MG Orally Once a day 1 tablet Simvastatin [facility] [address]-44 40 MG Orally Once a day 1 tablet in the evening Furosemide [facility] [address]-33 40 MG Orally Once a day 1 tablet Sertraline HCl [facility] 57890742621 100 MG Orally Once a day 1 tablet Levothyroxine Sodium [facility] [address]-41 50 MCG Orally Once a day 1 tablet Procedures Procedure Coding System Code Date Office Visit, Est Pt., Level 3 CPT-4 23749 Apr 22, 2015 [facility] VISIT ESTABLISHED PATIENT CPT-4 G0467 Apr 22, 2015 Vital Signs Date/Time: Apr 22, 2015 Blood Pressure Systolic 144 mmHg Weight 205.1 lbs Height 66.5 in BMI 32.60 Index Blood Pressure Diastolic 88 mmHg Results No Known Results Summary Purpose eClinicalWorks Submission
--- OUTSIDE RECORDS SUMMARY | 2016-07-26 04:56 | XMS REPORT ---
Author Author CLAUDY LEMONS Organization eClinical[employer] Address Unknown Phone Unavailable Care Team Providers Care Ethylene Plant Operator Name Role Phone CLAUDY LEMONS CP Unavailable Allergies, Adverse Reactions, Alerts Substance Reaction Event Type HydrOXYzine HCl Extreme drowsiness Drug Allergy Problems Problem Type Condition Code Onset Dates Condition Status Assessment Dental caries K02.9 Active Problem Schizoaffective disorder, unspecified 295.70 Active Medications Medication Code System Code Instructions Start Date End Date Status Dosage Sertraline HCl [facility] [place] 20025154314 100 MG Orally Once a day 1 tablet Vistaril [facility] [place] [facility]] [address]-78 25 MG Orally every 6 hrs July 27, 2014 1 capsule as needed Aspirin Adult Low Strength [facility] [place]] [address]-69 81 MG Orally Once a day 1 tablet Metoprolol Tartrate [facility] [place] 2] [address]-99 25 MG Orally Once a day 1 tablet Geodon [facility] [place] 2] [address]-76 40 MG Orally one tablet with dinner and two tablets at bedtime take as directed Amoxicillin [facility] [place] 2[place] [address]-92 500 MG Orally Every 6 hours Mar 13, 2015 Mar 23, 2015 1 capsule Levothyroxine Sodium [facility] [place] 2] [address]-72 50 MCG Orally Once a day 1 tablet Simvastatin [facility] [place]NOTE 2[place] [address]-19 40 MG Orally Once a day 1 tablet in the evening Furosemide [facility] [place] 2[facility] [address]-97 40 MG Orally Once a day 1 tablet Losartan Potassium [facility] [place]NOTE 2] [address]-05 100 MG Orally Once a day 1 tablet Procedures Procedure Coding System Code Date EXTRAC ERUPTED TOOTH/EXPOSED ROOT CPT-4 D7140 Mar 20, 2015 Vital Signs Date/Time: Mar 20, 2015 Blood Pressure Diastolic 85 mmHg Blood Pressure Systolic 150 mmHg Height 66.5 in Results No Known Results Summary Purpose eClinicalWorks Submission
--- OUTSIDE RECORDS SUMMARY | 2016-07-26 04:56 | XMS REPORT ---
Author Author PARAMJIT RIVAS Organization [facility] Address Unknown Care Team Providers Care Industrial Maintenance Technician Name Role Phone ROBPARAMJIT Unavailable PROBLEMS Type Condition ICD9-CM Code [id number] Code Onset Dates Condition Status SNOMED Code Problem Schizoaffective disorder, unspecified 295.70 Active 56439182 Assessment Schizoaffective disorder F25.9 Jan, Active 37783328 ALLERGIES Unknown Allergies SOCIAL HISTORY No smoking Hx information available PLAN OF CARE VITAL SIGNS Height 66.5 in 2016-01-22 Weight 218.2 lbs 2016-01-22 Heart Rate 68 bpm 2016-01-22 Respiratory Rate 18 2016-01-22 BMI 34.69 kg/m2 2016-01-22 Blood pressure systolic 142 mmHg 2016-01-22 Blood pressure diastolic 80 mmHg 2016-01-22 MEDICATIONS Medication Instructions Dosage Frequency Start Date End Date Duration Status Aspirin Adult Low Strength 81 MG Orally Once a day 1 tablet 24h Active Levothyroxine Sodium 50 MCG Orally Once a day 1 tablet 24h Active Losartan Potassium 100 MG Orally Once a day 1 tablet 24h Active Vistaril 25 MG Orally every 6 hrs 1 capsule as needed 6h Jul, 30 days Active Simvastatin 40 MG Orally Once a day 1 tablet in the evening 24h Active Sertraline HCl 100 MG Orally Once a day 1 tablet 24h 30 days Active Metoprolol Tartrate 25 MG Orally Once a day 1 tablet 24h Active Furosemide 40 MG Orally Once a day 1 tablet 24h Active RESULTS No Results PROCEDURES Procedure Date Ordered Related Diagnosis Body Site [facility] VISIT ESTABLISHED PATIENT Jan 22, 2016 Office Visit, Est Pt., Level 3 Jan 22, 2016 IMMUNIZATIONS No Known Immunizations
--- OUTSIDE RECORDS SUMMARY | 2016-07-26 04:56 | XMS REPORT ---
Author Author CLAUDY LEMONS [facility] eClinicalWorks Address Unknown Phone Unavailable Care Team Providers Care Proctologist Name Role Phone CLAUDY LEMONS CP Unavailable Allergies, Adverse Reactions, Alerts Substance Reaction Event Type HydrOXYzine HCl Extreme drowsiness Drug Allergy Problems Problem Type Condition Code Onset Dates Condition Status Assessment Dental examination Z01.20 Active Problem Schizoaffective disorder, unspecified 295.70 Active Medications Medication Code System Code Instructions Start Date End Date Status Dosage Geodon [facility] [address]-67 40 MG Orally one tablet with dinner and two tablets at bedtime take as directed Sertraline HCl [facility] 72027987813 100 MG Orally Once a day 1 tablet [place] [facility] [address]-77 5-325 MG Orally every 6 hrs Mar 13, 2015 Mar 17, 2015 1 tablet as needed Metoprolol Tartrate [facility] [address]-09 25 MG Orally Once a day 1 tablet Losartan Potassium [facility] [address]-52 100 MG Orally Once a day 1 tablet Levothyroxine Sodium [facility] [address]-05 50 MCG Orally Once a day 1 tablet Simvastatin [facility] [address]-08 40 MG Orally Once a day 1 tablet in the evening Amoxicillin [facility] [address]-11 500 MG Orally Every 6 hours Mar 13, 2015 Mar 23, 2015 1 capsule Furosemide [facility] [address]-66 40 MG Orally Once a day 1 tablet Vistaril [facility] [address]-40 25 MG Orally every 6 hrs July 27, 2014 1 capsule as needed Aspirin Adult Low Strength [facility] [address]-12 81 MG Orally Once a day 1 tablet Procedures Procedure Coding System Code Date INTRAORL-PERIAPICAL 1 FILM 11125 CPT-4 D0220 Mar 13, 2015 BITEWING - SINGLE FILM CPT-4 D0270 Mar 13, 2015 LTD ORAL EVALUATION - PROBLEM FOCUS CPT-4 D0140 Mar 13, 2015 Vital Signs Date/Time: Mar 13, 2015 Blood Pressure Diastolic 108 205 mmHg Blood Pressure Systolic 204 mmHg Results No Known Results Summary Purpose eClinicalWorks Submission
--- OUTSIDE RECORDS SUMMARY | 2016-07-26 04:56 | XMS REPORT ---
Author Author PARAMJIT RIVAS Organization eClinicalWorks Address Unknown Phone Unavailable Care Team Providers Care Technician Automated Equipment Name Role Phone PARAMJIT RIVAS Unavailable Allergies No Known Allergies Problems Problem Type Condition Code Onset Dates Condition Status Problem Schizoaffective disorder, unspecified 295.70 Active Medications Medication Code System Code Instructions Start Date End Date Status Dosage [facility] [address]-03 40 MG Orally one tablet with dinner and two tablets at bedtime take as directed Results No Known Results Summary Purpose eClinicalWorks Submission
== END 2016-07-22 13:23 | disposition home or self-care (01) ==
LOC: ER 11:59
DX: R00.1 Bradycardia, unspecified (principal); I10 Essential (primary) hypertension; F20.9 Schizophrenia, unspecified; Z79.82 Long term (current) use of aspirin; Z79.899 Other long term (current) drug therapy
CPT/HCPCS: 36415; 71010; 80053; 83735; 83880; 84443; 84484; 85025; 93005

== ENCOUNTER 2017-04-26 07:38 | Emergency (ER) | payer MEDICARE ==
[~2017-04-26] VITALS: Ht 170.2 cm; Wt 94.3 kg
[~2017-04-26 07:38] MED LIST changes: +LISI10TA2 PO
--- OUTSIDE RECORDS SUMMARY | 2017-04-26 07:44 | XMS REPORT ---
Author Author PARAMJIT Loyd [facility] Address Unknown Care Team Providers Care Handbell Choir Director Name Role Phone PARAMJIT Loyd Unavailable PROBLEMS Type Condition ICD9-CM Code [id number] Code Onset Dates Condition Status SNOMED Code Problem Schizoaffective disorder, chronic condition F25.8 Active 01727456 Problem Schizoaffective disorder, unspecified 295.70 Active 31298341 ALLERGIES No Information SOCIAL HISTORY Never Assessed PLAN OF CARE VITAL SIGNS MEDICATIONS Unknown Medications RESULTS No Results PROCEDURES No Known procedures IMMUNIZATIONS No Known Immunizations MEDICAL (GENERAL) HISTORY Type Description Date Medical History anxiety Medical History paranoid schizophrenia Medical History schizoaffective disorder Hospitalization History chest pain 04/2016
--- OUTSIDE RECORDS SUMMARY | 2017-04-26 07:44 | XMS REPORT ---
Author Author PARAMJIT RIVAS Organization [facility] Address Unknown Care Team Providers Care Cash Management Associate Name Role Phone PARAMJIT RIVAS Unavailable PROBLEMS Type Condition ICD9-CM Code [id number] Code Onset Dates Condition Status SNOMED Code Problem Schizoaffective disorder, chronic condition F25.8 Active 52447530 Problem Schizoaffective disorder, unspecified 295.70 Active 56358019 ALLERGIES Unknown Allergies SOCIAL HISTORY No smoking Hx information available PLAN OF CARE Activity Details Follow Up 3 Months Reason: VITAL SIGNS Height 66.5 in 2016-04-22 Weight 213 lbs 2016-04-22 Heart Rate 74 bpm 2016-04-22 Respiratory Rate 20 2016-04-22 BMI 33.86 kg/m2 2016-04-22 Blood pressure systolic 158 mmHg 2016-04-22 Blood pressure diastolic 96 mmHg 2016-04-22 MEDICATIONS Medication Instructions Dosage Frequency Start Date End Date Duration Status Geodon 40 MG Orally 1 capsule in the morning and 2 capsules at bedtime 1 capsule with food 30 days Active Vistaril 25 MG Orally every 6 hrs 1 capsule as needed 6h Jul, 30 days Active Levothyroxine Sodium 50 MCG Orally Once a day 1 tablet 24h Active Simvastatin 40 MG Orally Once a day 1 tablet in the evening 24h Active Losartan Potassium 100 MG Orally Once a day 1 tablet 24h Active Sertraline HCl 100 MG Orally Once a day 1 tablet 24h 30 days Active Furosemide 40 MG Orally Once a day 1 tablet 24h Active Aspirin Adult Low Strength 81 MG Orally Once a day 1 tablet 24h Active Metoprolol Tartrate 25 MG Orally twice a day 1 tablet 12h Active RESULTS No Results PROCEDURES Procedure Date Ordered Related Diagnosis Body Site [facility] VISIT ESTABLISHED PATIENT Apr 22, 2016 Office Visit, Est Pt., Level 3 Apr 22, 2016 IMMUNIZATIONS No Known Immunizations
--- OUTSIDE RECORDS SUMMARY | 2017-04-26 07:44 | XMS REPORT ---
Author Author PARAMJIT RIVAS [facility] Address Unknown Care Team Providers Care Chief Airline Radio Operator Name Role Phone PARAMJIT RIVAS Unavailable PROBLEMS Type Condition ICD9-CM Code [id number] Code Onset Dates Condition Status SNOMED Code Problem Schizoaffective disorder, chronic condition F25.8 Active 65571724 Problem Schizoaffective disorder, unspecified 295.70 Active 58140302 ALLERGIES Unknown Allergies SOCIAL HISTORY No smoking Hx information available PLAN OF CARE VITAL SIGNS MEDICATIONS Unknown Medications RESULTS No Results PROCEDURES No Known procedures IMMUNIZATIONS No Known Immunizations
--- OUTSIDE RECORDS SUMMARY | 2017-04-26 07:45 | XMS REPORT | Continuity of Care Document ---
Author Author [facility] Address Unknown Phone Unavailable Allergies Active Description Code Type Severity Reaction Onset Reported/Identified Relationship to Patient Clinical Status Yes No Known Drug Allergies [id number] Drug Allergy Unknown N/A 05/15/2010 Yes hydrOXYzine 50 mg tablet Drug Allergy N/A N/A 05/20/2013 Medications There is no data. Problems Date Dx Coded Attending Type Code Diagnosis Diagnosed By 02/18/2010 CARL LLOYD APRN 300.00 AN ANXIETY UNSPEC 02/18/2010 CARL LLOYD APRN 300.00 AN ANXIETY UNSPEC 02/18/2010 300.00 AN ANXIETY UNSPEC 02/18/2010 CARL LLOYD APRN 300.00 AN ANXIETY UNSPEC 02/18/2010 WHITE MARIAELENA BRICENO 300.00 AN ANXIETY UNSPEC 02/18/2010 CARL LLOYD APRN 300.00 AN ANXIETY UNSPEC 02/18/2010 WHITE MARIAELENA BRICENO 300.00 AN ANXIETY UNSPEC 02/18/2010 CARL LLOYD APRN 300.00 AN ANXIETY UNSPEC 02/18/2010 300.00 AN ANXIETY UNSPEC 02/18/2010 CARL LLOYD APRN 300.00 AN ANXIETY UNSPEC 02/18/2010 PARAMJIT CASTRO 300.00 AN ANXIETY UNSPEC 02/18/2010 PARAMJIT CASTRO [...] 04/16/2010 300.02 AN GEN ANXIETY 04/16/2010 PREMA DUARTEYang CARL LAU 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 04/16/2010 PREMA DUARTEYang CARL LAU 300.02 AN GEN ANXIETY 04/16/2010 WHITE DDS, MARIAELENA J 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 04/16/2010 WHITE DDS, MARIAELENA J 300.02 AN GEN ANXIETY 04/16/2010 PREMA DUARTEYang CARL LAU 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 04/16/2010 PREMA DUARTEYang CARL LAU 300.02 AN GEN ANXIETY 04/16/2010 WHITE DDS, MARIAELENA J 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 04/16/2010 WHITE DDS, MARIAELENA J 300.02 AN GEN ANXIETY 04/16/2010 LLOYDCARLA DODD CARL LAU 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 04/16/2010 LLOYDCARLA DODD CARL LAU 300.02 AN GEN ANXIETY 04/16/2010 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 04/16/2010 300.02 AN GEN ANXIETY 04/16/2010 LLOYD YOUSIF CARL LAU 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 04/16/2010 PREMA DUARTEYang CARL LAU 300.02 AN GEN ANXIETY 04/16/2010 PARAMJIT CASTRO M 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 04/16/2010 PARAMJIT CASTRO M 300.02 AN GEN ANXIETY 04/16/2010 PARAMJIT CASTRO M 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 04/16/2010 PARAMJIT CASTRO M 300.02 AN GEN ANXIETY 04/16/2010 ROB COBB, PARAMJIT M 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 04/16/2010 PARAMJIT CASTRO M 300.02 AN GEN ANXIETY 05/15/2010 Ot 401.9 05/15/2010 Ot 789.06 05/15/2010 Ot V58.66 05/15/2010 Ot V58.69 07/28/2010 PREMA DODD CARL LAU 295.30 P SCHIZO PARANOID UNSPECIFIED 07/28/2010 LLOYD VOCAL TEACHER CARL LAU 295.30 P SCHIZO PARANOID UNSPECIFIED 07/28/2010 295.30 P SCHIZO PARANOID UNSPECIFIED 07/28/2010 LLOYD VOCAL TEACHER, CARL LAU 295.30 P SCHIZO PARANOID UNSPECIFIED 07/28/2010 WHITE DDS, MARIAELENA J 295.30 P SCHIZO PARANOID UNSPECIFIED 07/28/2010 LLOYD VOCAL TEACHER, CARL LAU 295.30 P SCHIZO PARANOID UNSPECIFIED 07/28/2010 WHITE DDS, MARIAELENA J 295.30 P SCHIZO PARANOID UNSPECIFIED 07/28/2010 LLOYD VOCAL TEACHER, CARL LAU 295.30 P SCHIZO PARANOID UNSPECIFIED 07/28/2010 295.30 P SCHIZO PARANOID UNSPECIFIED 07/28/2010 LLOYD VOCAL TEACHER, CARL LAU 295.30 P SCHIZO PARANOID UNSPECIFIED 07/28/2010 ROB GEOPHYSICAL OPERATOR, PARAMJIT M 295.30 P SCHIZO PARANOID UNSPECIFIED 07/28/2010 ROB GEOPHYSICAL OPERATOR, PARAMJIT M 295.30 P SCHIZO PARANOID UNSPECIFIED 07/28/2010 ROB GEOPHYSICAL OPERATOR, PARAMJIT M 295.30 P SCHIZO PARANOID UNSPECIFIED 04/22/2012 LLOYD VOCAL TEACHER, CARL LAU 295.70 P SCHIZO AFFECTIVE 04/22/2012 LLOYD VOCAL TEACHER, CARL LAU 295.70 P SCHIZO AFFECTIVE 04/22/2012 295.70 P SCHIZO AFFECTIVE 04/22/2012 LLOYD VOCAL TEACHER, CARL LAU 295.70 P SCHIZO AFFECTIVE 04/22/2012 WHITE DDS, MARIAELENA J 295.70 P SCHIZO AFFECTIVE 04/22/2012 LLOYD VOCAL TEACHER CARL LAU 295.70 P SCHIZO AFFECTIVE 04/22/2012 WHITE DDS, MARIAELENA J 295.70 P SCHIZO AFFECTIVE 04/22/2012 LLOYD VOCAL TEACHER CARL LAU 295.70 P SCHIZO AFFECTIVE 04/22/2012 LLOYD VOCAL TEACHER, CARL LAU 295.70 P SCHIZO AFFECTIVE 04/22/2012 ROB GEOPHYSICAL OPERATOR, PARAMJTI M 295.70 P SCHIZO AFFECTIVE 04/22/2012 ROB GEOPHYSICAL OPERATOR, PARAMJIT M 295.70 P SCHIZO AFFECTIVE 04/22/2012 ROB GEOPHYSICAL OPERATOR, PARAMJIT M 295.70 P SCHIZO AFFECTIVE 09/03/2012 TODD BARRIOS DO Ot 682.6 CELLULITIS OF LEG 02/18/2013 DOREEN MELTON, CHRISTOPHER R Ot 521.00 UNSPEC DENTAL CARIES 02/18/2013 DOREEN MELTON, CHRISTOPHER Martin Ot 525.9 DENTAL DISORDER NOS 04/13/2014 ANDRE AZUL DO M Ot 327.23 OBSTRUCTIVE SLEEP APNEA (ADULT) (PEDIATR 08/07/2014 Ot 959.4 08/07/2014 Ot E000.8 08/07/2014 Ot E849.0 08/07/2014 Ot E928.9 08/07/2014 GELLENDER DO, JUANITA Amaya Ot 593.9 08/07/2014 GELLENDER DO, JUANITA Amaya Ot 789.00 08/07/2014 GELLENDER DO, JUANITA Amaya Ot 793.6 09/04/2014 GELLENDER DOJUANITA Ot 715.35 09/13/2014 Ot 959.4 09/13/2014 Ot E000.8 09/13/2014 Ot E849.0 09/13/2014 Ot E928.9 09/13/2014 GELLENDER DO, JUANITA Amaya Ot 593.9 09/13/2014 GELLENDER DOJUANITA Ot 789.00 09/13/2014 GELLENDER DOJUANITA Ot 793.6 09/13/2014 GELLENDER DO, JUANITA Amaya Ot 715.35 10/12/2014 GELLENDER DOJUANITA Ot 719.45 09/07/2015 WILMER MELTON, KYLER Haines Ot H69.90 UNSPECIFIED EUSTACHIAN TUBE DISORDER, UN 09/07/2015 WILMER MELTON, KYLER T Ot H73.893 OTHER SPECIFIED DISORDERS OF TYMPANIC [...] Amaya Ot G47.33 OBSTRUCTIVE SLEEP APNEA (ADULT) (PEDIATR 04/21/2016 GELLENDER DO, JUANITA Amaya Ot I10 [...] Amaya Ot G47.33 OBSTRUCTIVE SLEEP APNEA (ADULT) (PEDIATR 04/21/2016 GELLENDER DO, JUANITA Amaya Ot I10 ESSENTIAL (PRIMARY) HYPERTENSION 04/21/2016 GELLENDER DO, JUANITA Amaya Ot K21.9 GASTRO-ESOPHAGEAL REFLUX DISEASE WITHOUT 04/21/2016 GELLENDER DO, JUANITA Amaya Ot R07.9 CHEST PAIN, UNSPECIFIED 04/21/2016 GELLENDER DO, JUANITA Amaya Ot Z87.891 PERSONAL HISTORY OF NICOTINE DEPENDENCE 07/22/2016 MARIN, PETER J VOCAL TEACHER Ot F20.9 SCHIZOPHRENIA, UNSPECIFIED 07/22/2016 ISABELL MARIN VOCAL TEACHER Ot I10 ESSENTIAL (PRIMARY) HYPERTENSION 07/22/2016 ISABELL MARIN VOCAL TEACHER Ot R00.1 BRADYCARDIA, UNSPECIFIED 07/22/2016 ISABELL MARIN VOCAL TEACHER Ot 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9 RENAL URETERAL DIS NOS 09/07/2016 GELLENDER DOJUANITA Ot 789.00 ABDOMINAL PAIN, UNSPECIFIED SITE 09/07/2016 GELLENDER DOJUANITA Ot 793.6 NOSP (ABN) FINDINGS ON RADIOLOGICAL OT 09/07/2016 GELLENDER DOJUANITA Ot 715.35 LOC OSTEOARTH NOS-PELVIS 09/07/2016 GELLENDER DO, JUANITA Amaya Ot 719.45 JOINT PAIN-PELVIS 09/07/2016 GELLENDER DOJUANITA Ot R04.2 HEMOPTYSIS 09/07/2016 GELLENDER DOJUANITA Ot R05 COUGH 09/07/2016 GELLENDER DOJUANITA Ot R09.89 OTH SYMPTOMS AND SIGNS INVOLVING THE CIR 09/16/2016 GELLENDER DOJUANITA Ot 593.9 RENAL URETERAL DIS NOS 09/16/2016 GELLENDER DO, JUANITA Amyaa Ot 789.00 ABDOMINAL PAIN, UNSPECIFIED SITE 09/16/2016 GELLENDER DO, JUANITA Amaya Ot 793.6 NOSP (ABN) FINDINGS ON RADIOLOGICAL OT 09/16/2016 GELLENDER DOJUANITA Ot 715.35 LOC OSTEOARTH NOS-PELVIS 09/16/2016 GELLENDER DO, JUANITA Amaya Ot 719.45 JOINT PAIN-PELVIS 09/16/2016 LAMONTEELHAMMCKEON JUANITA Jose Luis Ot R04.2 HEMOPTYSIS 09/16/2016 JUANITA ABBASI DO Ot R05 COUGH 09/16/2016 JUANITA ABBASI DO Ot R09.89 OTH SYMPTOMS AND SIGNS INVOLVING THE CIR Procedures Code Description [place] [address] PSYCH IND W/MED CK 20 04/27/2012 Results Test Result Range Complete blood count (CBC) with automated white blood cell (WBC) differential - 03/20/16 10:53 Blood leukocytes automated count (number/volume) 13.1 10*3/uL 4.3-11.0 Blood erythrocytes automated count (number/volume) 4.44 10*6/uL 4.35-5.85 Venous blood hemoglobin measurement (mass/volume) 13.7 [...] Automated blood platelet mean volume measurement 10.9 [foz_us] 7.4-10.4 Automated blood neutrophils/100 leukocytes 73 % [...] 14:52 Blood leukocytes automated count (number/volume) 8.6 10*3/uL 4.3-11.0 Blood erythrocytes automated count (number/volume) 4.45 10*6/uL 4.35-5.85 Venous blood hemoglobin measurement (mass/volume) 13.4 [...] Automated blood platelet mean volume measurement 10.1 [foz_us] 7.4-10.4 Automated blood neutrophils/100 leukocytes 59 % [...] Serum or plasma sodium measurement (moles/volume) 138 mmol/L 135-145 Serum or plasma potassium measurement (moles/volume) 3.7 mmol/L 3.6-5.0 Serum or plasma chloride measurement (moles/volume) 103 mmol/L 98-107 Carbon dioxide 28 mmol/L 21-32 Serum or plasma anion gap determination (moles/volume) 7 mmol/L 5-14 Serum or plasma urea nitrogen measurement (mass/volume) 14 mg/dL 7-18 Serum or plasma creatinine measurement (mass/volume) 0.89 mg/dL 0.60-1.30 Serum or plasma urea nitrogen/creatinine mass [...] or plasma troponin i.cardiac measurement (mass/volume) < ng/ mL <0.30 Myoglobin, serum - 04/20/16 14:52 Myoglobin, serum 88.6 ng/mL 10.0-92.0 THYROID STIMULATING HORMONE - 04/20/16 14:52 THYROID STIMULATING HORMONE 3.99 u[iU]/mL 0.35-4.94 Serum or plasma thyroxine (T4) free measurement (mass/volume) - 04/20/16 14:52 Serum or plasma thyroxine (T4) free measurement (mass/volume) 0.92 ng/dL 0.70-1.48 Serum or plasma troponin i.cardiac measurement (mass/volume) - 04/20/16 21:19 Serum or plasma troponin i.cardiac measurement (mass/volume) < ng/ mL <0.30 Automated blood complete blood count (hemogram) panel - 04/21/16 03:00 Blood leukocytes automated count (number/volume) 7.4 10*3/uL 4.3-11.0 Blood erythrocytes automated count (number/volume) 4.45 10*6/uL 4.35-5.85 Venous blood hemoglobin measurement (mass/volume) 13.4 [...] Automated blood platelet mean volume measurement 10.2 [foz_us] 7.4-10.4 Comprehensive metabolic panel - 04/21/16 03:00 Serum or plasma sodium measurement (moles/volume) 141 mmol/L 135-145 Serum or plasma potassium measurement (moles/volume) 3.9 mmol/L 3.6-5.0 Serum or plasma chloride measurement (moles/volume) 105 mmol/L 98-107 Carbon dioxide 28 mmol/L 21-32 Serum or plasma anion gap determination (moles/volume) 8 mmol/L 5-14 Serum or plasma urea nitrogen measurement (mass/volume) 13 mg/dL 7-18 Serum or plasma creatinine measurement (mass/volume) 0.79 mg/dL 0.60-1.30 Serum or plasma urea nitrogen/creatinine mass [...] Serum or plasma cholesterol measurement (mass/volume) 169 mg/dL < 200 Serum or plasma cholesterol in HDL measurement (mass/volume) 36 mg/ dL 40-60 Cholesterol in LDL [mass/volume] in serum or plasma by direct assay 93 mg/dL 1-129 Serum or plasma cholesterol in VLDL measurement (mass/volume) 56 mg/ dL 5-40 Serum or plasma troponin i.cardiac measurement (mass/volume) - 04/21/16 03:00 Serum or plasma troponin i.cardiac measurement (mass/volume) < ng/ mL <0.30 Complete blood count (CBC) with automated white blood cell (WBC) differential - 07/22/16 12:00 Blood leukocytes automated count (number/volume) 8.0 10*3/uL 4.3-11.0 Blood erythrocytes automated count (number/volume) 4.74 10*6/uL 4.35-5.85 Venous blood hemoglobin measurement (mass/volume) 14.4 [...] Automated blood platelet mean volume measurement 10.6 [foz_us] 7.4-10.4 Automated blood neutrophils/100 leukocytes 57 % [...] Serum or plasma sodium measurement (moles/volume) 140 mmol/L 135-145 Serum or plasma potassium measurement (moles/volume) 4.1 mmol/L 3.6-5.0 Serum or plasma chloride measurement (moles/volume) 103 mmol/L 98-107 Carbon dioxide 30 mmol/L 21-32 Serum or plasma anion gap determination (moles/volume) 7 mmol/L 5-14 Serum or plasma urea nitrogen measurement (mass/volume) 12 mg/dL 7-18 Serum or plasma creatinine measurement (mass/volume) 1.00 mg/dL 0.60-1.30 Serum or plasma urea nitrogen/creatinine mass [...] or plasma troponin i.cardiac measurement (mass/volume) < ng/ mL <0.30 THYROID STIMULATING HORMONE - 07/22/16 12:00 THYROID STIMULATING HORMONE 2.67 u[iU]/mL 0.35-4.94 Encounters ACCT No. Visit Date/Time Discharge Status Pt. Type Provider Facility Loc./Unit Complaint [id number] 07/27/2014 09:24:00 07/27/2014 23:59:59 CLS Outpatient PARAMJIT CASTRO [id number] 03/14/2014 09:29:00 03/14/2014 23:59:59 CLS Outpatient PARAMJIT CASTRO [id number] 03/14/2014 09:29:00 03/14/2014 23:59:59 CLS Outpatient PARAMJIT CASTRO [id number] 11/17/2013 10:16:00 11/17/2013 23:59:59 CLS Outpatient PREMA DODD CARL JUDI [id number] 08/18/2013 09:50:00 08/18/2013 23:59:59 CLS Outpatient PREMA DODD CARL JUDI [id number] 07/21/2013 09:02:00 07/21/2013 23:59:59 CLS Outpatient MARIAELENA SALAZAR DDS [id number] 05/20/2013 13:30:00 05/20/2013 23:59:59 CLS Outpatient PREMA DODD CARL JUDI [id number] 03/10/2013 11:50:00 03/10/2013 23:59:59 CLS Outpatient MARIAELENA SALAZAR DDS [id number] 01/27/2013 13:19:00 01/27/2013 23:59:59 CLS Outpatient PREMA DODD CARL JUDI [id number] 07/28/2012 10:27:00 07/28/2012 23:59:59 CLS Outpatient PREMA DODD CARL JUDI [id number] 04/22/2012 10:07:00 04/22/2012 23:59:59 CLS Outpatient PREMA DODD CARL JUDI [id number] 01/22/2012 10:02:00 01/22/2012 23:59:59 CLS Outpatient [id number] 10/28/2012 10:46:00 Document Registration [id number] 07/22/2016 11:59:00 07/22/2016 13:23:00 DIS Emergency ISABELL MARIN APRN [facility] ER LOW HR [id number] 04/20/2016 16:42:00 04/21/2016 18:50:00 DIS Inpatient JUANITA ABBASI DO [facility] 4TH CHEST PAIN, HYPERTENSIVE URGENCY [id number] 03/20/2016 10:34:00 03/20/2016 23:59:59 CLS Outpatient JUANITA ABBASI DO [facility] RAD COUGH AND CONGESTION, SPITTING UP BLOOD [id number] 09/07/2015 16:14:00 09/07/2015 16:55:00 DIS Emergency WILMER MELTON, KYLER Haines [facility] ER HEARING LOSS [id number] 09/13/2014 13:00:00 09/13/2014 23:59:59 CLS Outpatient JUANITA ABBASI DO [facility] RAD LEFT HIP PAIN [id number] 08/07/2014 11:49:00 08/07/2014 23:59:59 CLS Outpatient JUANITA ABBASI DO [facility] RAD LT HIP PAIN, NOT GETTING BETTER [id number] 04/12/2014 20:52:00 04/13/2014 07:25:00 DIS Outpatient ANDRE AZUL DO [facility] SLEEP SEPIDEH [id number] 08/01/2013 12:10:00 08/01/2013 23:59:59 CLS Outpatient JUANITA ABBASI DO [facility] RAD PAIN IN LT FLANK [id number] 02/18/2013 17:16:00 02/18/2013 17:55:00 DIS Emergency DOREEN MELTON, CHRISTOPHER Martin [facility] ER BACTERIA INFECTION DENTAL [id number] 09/03/2012 14:03:00 09/03/2012 17:13:00 DIS Emergency TODD BARRIOS DO [facility] ER LEG INFECTED [id number] 08/07/2014 11:48:00 Document Registration [id number] 09/01/2010 10:50:00 Document Registration
[2017-04-26] MEDS ORDERED: ARPZ30T PO (07:48)
--- NOTE | 2017-04-26 07:52 | ED Upper Extremity ---
General Chief Complaint: Upper Extremity Stated Complaint: L ARM PAIN Nursing Triage Note: PT REPORTS THROWING TRASH INTO DUMPSTER YESTERDAY AND IS NOW HAVING L SHOULDER PAIN. Nursing Sepsis Screen: No Definite Risk Source: patient Exam Limitations: no limitations History of Present Illness Time seen by provider: 07:48 Initial Comments Patient presents to ER by private conveyance with chief complaint that yesterday he was taking out the trash she is right-handed but he lifted a trash of his left arm throat and the dumpster and felt a popping sensation denies having quite a bit of pain in his left shoulder and has some bruising on the anterior portion of his left shoulder. He has no history of stroke, or surgery or falls to that shoulder. His pain radiates down his arm a little bit. His hand does not have any numbness or tingling. Allergies and Home Medications Allergies Coded Allergies: No Known Drug Allergies (Unverified , 05/15/10) Home Medications Aripiprazole 30 Mg Tablet, 30 MG PO, (Reported) Aspirin 81 Mg Tab.chew, 81 MG PO DAILY@1730, #14 Prescribed by: JUANITA ABBASI on 04/21/16 0718 Furosemide 40 Mg Tablet, 40 MG PO DAILY, #20 Prescribed by: JUANITA ABBASI on 04/21/16 0718 Levothyroxine Sodium 50 Mcg Tablet, 50 MCG PO DAILY, #20 Prescribed by: JUANITA ABBASI on 04/21/16 0718 Lisinopril 10 Mg Tablet, 10 MG PO DAILY for 10 Days, #10 Prescribed by: ISABELL MARIN on 07/22/16 1319 Losartan Potassium 100 Mg Tablet, 100 MG PO DAILY@1730, (Reported) Metoprolol Tartrate 25 Mg Tablet, 25 MG PO BID, #20 LAST FILLED 02/17/16 #60 Prescribed by: JUANITA ABBASI on 04/21/16 0718 Potassium Chloride 10 Meq Tablet.er, 10 MEQ PO DAILY, #15 Prescribed by: JUANITA ABBASI on 04/21/16 0718 Sertraline HCl 100 Mg Tablet, 100 MG PO DAILY@1730, (Reported) Simvastatin 40 Mg Tablet, 40 MG PO DAILY@1730, (Reported) Constitutional: No chills, No fever Respiratory: No cough, No short of breath Cardiovascular: No chest pain, No palpitations Gastrointestinal: No constipation, No nausea, No vomiting Musculoskeletal: see HPI, joint pain, joint swelling, muscle pain, muscle stiffness Skin: No pruritus, No rash Past Qehzwiu-Wmmmlz-Yoelfs Hx Patient Social History Alcohol Use: Denies Use Recreational Drug Use: No Smoking Status: Former Smoker Type Used: Cigarettes Former Smoker, Quit: Feb 19, 2016 Recent Foreign Travel: No Contact w/Someone Who Travel: No Recent Infectious Disease Expo: No Recent Hopitalizations: No Immunizations Up To Date Tetanus Booster (TDap): Less than 5yrs Date of Pneumonia Vaccine: Feb 01, 2012 Date of Influenza Vaccine: Mar 03, 2016 Seasonal Allergies Seasonal Allergies: Yes Surgeries History of Surgeries: Yes Surgeries: Appendectomy Respiratory History of Respiratory Disorde: No Respiratory Disorders: Sleep Apnea Currently Using CPAP: Yes Cardiovascular History of Cardiac Disorders: Yes Cardiac Disorders: Heart Murmur, High Cholesterol, Hypertension Neurological History of Neurological Disord: No Reproductive System Hx Reproductive Disorders: No Gastrointestinal History of Gastrointestinal Di: No Gastrointestinal Disorders: Gastroesophageal Reflux Musculoskeletal History of Musculoskeletal Dis: Yes Musculoskeletal Disorders: Arthritis Endocrine History of Endocrine Disorders: Yes Endocrine Disorders: Hypothyroidsim HEENT HEENT Disorders: Glaucoma Loss of Vision: Denies Hearing Impairment: Denies Cancer History of Cancer: No Psychosocial History of Psychiatric Problem: Yes Behavioral Health Disorders: Anxiety, Depression Integumentary History of Skin or Integumenta: No Blood Transfusions History of Blood Disorders: No Adverse Reaction to a Blood Tr: No Family Medical History Significant Family History: Heart Disease, Hypertension, Stroke Family Medial History: Physical Exam Vital Signs Vital Sign - Last 12Hours 04/26/17 07:44 Temp 97.2 Pulse 74 Resp 16 B/P (MAP) 133/80 (97) Pulse Ox 97 O2 Delivery Room Air Capillary Refill : Less Than 3 Seconds General Appearance: WD/WN, mild distress HEENT: PERRL/EOMI, pharynx normal Neck: non-tender, full range of motion, supple, normal inspection Cardiovascular: normal peripheral pulses, regular rate, rhythm Respiratory: no respiratory distress Shoulder: ecchymosis (anterior, mild), limited ROM (active abduction with painful arc), pain, soft tissue tenderness, swelling (mild) Neurologic/Tendon: normal sensation, normal motor functions, withdraws to pain , other (pain but no weakness on empty can test or push off test) Neurologic/Psychiatric: no motor/sensory deficits, alert, oriented x 3 Skin: normal color, warm/dry Progress/Results/Core Measures Results/Orders My Orders Orders - SHYLA CATALAN Dexamethasone Injection (Decadron Inject (04/26/17 08:30) Ketorolac Injection (Toradol Injection) (04/26/17 08:30) Vital Signs/I&O Vital Sign - Last 12Hours 04/26/17 07:44 Temp 97.2 Pulse 74 Resp 16 B/P (MAP) 133/80 (97) Pulse Ox 97 O2 Delivery Room Air Blood Pressure Mean: 97 Departure Impression Impression: Primary Impression: Rotator cuff impingement syndrome of left shoulder Disposition: HOME, SELF-CARE Condition: Stable Departure-Patient Inst. Decision time for Depature: 08:38 Referrals: JUANITA ABBASI DO (PCP/Family) Primary Care Physician Patient Instructions: Rotator Cuff Injury (DC) Add. Discharge Instructions: Follow up with Dr Abbasi in 2-4 weeks. Take 800mg Ibuprofen every 8 hours scheduled. You may take 1000mg tylenol every 8 hours as needed. You may ice the shoulder for 20 minutes every 4 hours for the first several days. Do not lift more than 10# with your left arm for 2 weeks. Heat, icy Hot, Aspercreme or Biofreeze applied several times daily for pain. Do range of motion exercises three times a day until healed. All discharge instructions reviewed with patient and/or family. Voiced understanding. Work/School Note: Work Release Form Date Seen in the Emergency Department: Apr 26, 2017 Return to Work: Apr 27, 2017 Restrictions: Need Release from Doctor Other Restrictions Listed Below: 2 weeks no lifting more than 10# with left shoulder. Copy Copies To 1: JUANITA ABBASI TITUS J Apr 26, 2017 07:52
[2017-04-26] MEDS ORDERED: KETOROLAC 30 MG/ML VIAL IM ONE (08:30)
[2017-04-26] MEDS ORDERED: DEXAMETHASONE 10 MG/ML (DECADRON) 1 ML VIAL IM ONE (08:30)
[2017-04-26 09:04] VITALS: BP 133/80
== END 2017-04-26 09:04 | disposition home or self-care (01) ==
LOC: EDUNIT# 07:38 → ER 07:40
DX: M75.42 Impingement syndrome of left shoulder (principal); E78.00 Pure hypercholesterolemia, unspecified; I10 Essential (primary) hypertension; K21.9 Gastro-esophageal reflux disease without esophagitis; E03.9 Hypothyroidism, unspecified; F41.9 Anxiety disorder, unspecified; F32.9 Major depressive disorder, single episode, unspecified; Z79.82 Long term (current) use of aspirin; Z82.49 Family history of ischemic heart disease and other diseases of the circulatory system; Z87.891 Personal history of nicotine dependence; Z90.49 Acquired absence of other specified parts of digestive tract
CPT/HCPCS: 99284

== ENCOUNTER → 2017-05-24 | Outpatient (CLI) | payer MEDICARE ==
[~2017-05-24] MED LIST changes: +ARPZ30T PO
--- NOTE | 2017-05-24 16:08 | Diagnostic Imaging Report ---
EXAMINATION: Magnetic resonance imaging of the left shoulder without contrast. DATE: May 24, 2017. COMPARISON: None. HISTORY: 56-year-old male, lifting injury in April 2017. Persistent left shoulder pain. TECHNIQUE: Magnetic Resonance Imaging sequences were performed of the shoulder without contrast. FINDINGS: ROTATOR CUFF, LIGAMENTS, TENDONS, AND MUSCLES: There are full-thickness, full-width tears of the supraspinatus and infraspinatus tendons with tendon retraction near the level of the glenoid. There is diffusely abnormal signal of the subscapularis tendon which is at least compatible with severe tendinopathy. There is very likely at least a partial tear of the subscapularis tendon. There is no pronounced retraction of the subscapularis tendon fibers. The teres minor tendon is intact. There is mild fatty atrophy of the supraspinatus and infraspinatus muscles. There is edema in the supraspinatus and infraspinatus muscles which potentially may be due to denervation or low-grade muscle strains. LONG HEAD OF BICEPS: The long head of biceps tendon is normally positioned within the bicipital groove. The biceps labral attachment is intact. GLENOHUMERAL JOINT: The humeral head is superiorly subluxed. The humeral head is posteriorly subluxed. The labrum is grossly intact. There is no identified paralabral cyst. The articular cartilage is grossly intact. There is a klmgsuyr-hn-dfzuu glenohumeral joint effusion. ACROMIOCLAVICULAR JOINT: The acromioclavicular joint is normally aligned. The coracoclavicular and coracoacromial ligaments are intact. There are naio-vr-zyvybaqk acromioclavicular degenerative changes with osteophytes extending approximately 4 mm below the joint margin. BONE: There is no os acromiale. The bone marrow signal is within normal limits. Specifically, negative for fracture, osteomyelitis, osteonecrosis, or marrow replacing process. BURSAE AND SOFT TISSUES: There is fluid in the subacromial subdeltoid bursa compatible with the full-thickness rotator cuff tendon tears, bursitis, and/or recent injection. IMPRESSION: 1. Full thickness full width tears of the supraspinatus and infraspinatus tendons with tendon retraction to the level of the glenoid. Marked thickening and abnormal signal of the subscapularis tendon compatible with at least severe tendinopathy with suspected at least partial bursal sided tearing of the tendon. No pronounced tendon retraction of subscapularis. Mild fatty atrophy of the supraspinatus and infraspinatus muscles. 2. Bgjv-un-opkczovw acromioclavicular degenerative changes with 4 mm undersurface osteophytes. 3. The humeral head is superiorly and posteriorly subluxed. Bmwhlvef-xy-cvuea glenohumeral joint effusion. No discretely identified labral tear. Grossly intact articular cartilage. 4. No acute fracture or bone contusion. 5. Fluid in the subacromial subdeltoid bursa compatible with the full-thickness rotator cuff tendon tears, bursitis, and/or recent injection. Dictated on workstation # [id number]
== END ==
LOC: RAD 14:20
PROVIDERS: ATTEND Orthopaedic Surgery
DX: M75.122 Complete rotator cuff tear or rupture of left shoulder, not specified as traumatic (principal); S43.022A Posterior subluxation of left humerus, initial encounter; M62.512 Muscle wasting and atrophy, not elsewhere classified, left shoulder; M25.712 Osteophyte, left shoulder; M19.012 Primary osteoarthritis, left shoulder; X50.9XXA Other and unspecified overexertion or strenuous movements or postures, initial encounter
CPT/HCPCS: 73221

== ENCOUNTER 2017-07-22 09:48 | Outpatient (RCR) | payer MEDICARE | END 2017-07-22 10:53 | disposition home or self-care (01) | PROVIDERS: ATTEND Nurse Practitioner Family | DX: M75.102 Unspecified rotator cuff tear or rupture of left shoulder, not specified as traumatic (principal) ==

== ENCOUNTER → 2017-08-12 | Outpatient (CLI) | payer MEDICARE | LOC: CARD 10:34 | PROVIDERS: ATTEND Internal Medicine Cardiovascular Disease | DX: I08.0 Rheumatic disorders of both mitral and aortic valves (principal); R07.89 Other chest pain; I10 Essential (primary) hypertension; E03.9 Hypothyroidism, unspecified | CPT/HCPCS: 93306 ==

== ENCOUNTER 2019-01-08 10:02 | Emergency (ER) | payer MEDICARE ==
[~2019-01-08] VITALS: Ht 170.2 cm; Wt 95.3 kg
[~2019-01-08 10:02] MED LIST changes: -LOSA100T28 PO; +LOSA100T57 PO
[2019-01-08] MEDS ORDERED: FURO20TA4 (10:19)
[2019-01-08] MEDS ORDERED: AMLO5TAB9 (10:19)
[2019-01-08] MEDS ORDERED: LISI40TA (10:19)
[2019-01-08] MEDS ORDERED: methylPREDNISolone 125 MG (Solu-MEDROL) VIAL IM ONE (10:30)
[2019-01-08] MEDS ORDERED: PRD20T PO (10:31)
[2019-01-08] MEDS ORDERED: FAMO-119 PO (10:31)
[2019-01-08] MEDS ORDERED: TR1C15 TP (10:31)
--- NOTE | 2019-01-08 10:31 | ED Integumentary General ---
General Chief Complaint: Skin/Wound Problems Stated Complaint: RASH ALL OVER BODY Nursing Triage Note: Patient was workin in [employer] about 3 or 4 days ago and noticed a rash on his R arm initial and then it began to spread to other areas. Patient reports trying cortisone cream 3 or 4 times without relief Source: patient Exam Limitations: no limitations History of Present Illness Date Seen by Provider: Jan 08, 2019 Time Seen by Provider: 10:25 Initial Comments This 58-year-old white male presents with poison amanda. Patient was working with [employer] 3-4 days ago and subsequently noted the onset of the rash over his upper extremity. He has tried cfit-zph-ojojxwv cortisone without significant improvement. Patient has had multiple similar episodes in the past. Allergies and Home Medications Allergies Coded Allergies: No Known Drug Allergies (Unverified , 05/15/10) Home Medications Levothyroxine Sodium 50 Mcg Tablet, 50 MCG PO DAILY Prescribed by: JUANITA ABBASI on 04/21/16717 Potassium Chloride 10 Meq Tablet.er, 10 MEQ PO DAILY Prescribed by: JUANITA ABBASI on 04/21/1618 Sertraline HCl 100 Mg Tablet, 100 MG PO DAILY@1730, (Reported) Patient Home Medication List Home Medication List Reviewed: Yes Review of Systems Review of Systems Constitutional: no symptoms reported EENTM: no symptoms reported Respiratory: no symptoms reported Cardiovascular: no symptoms reported Gastrointestinal: no symptoms reported Genitourinary: no symptoms reported Musculoskeletal: no symptoms reported Skin: see HPI, rash Psychiatric/Neurological: No Symptoms Reported Endocrine: No Symptoms Reported Hematologic/Lymphatic: No Symptoms Reported Past Fltlvha-Szdtlr-Mtxtln Hx Past Med/Social Hx: Reviewed Nursing Past Med/Soc Hx Patient Social History Alcohol Use: Denies Use Recreational Drug Use: No Smoking Status: Former Smoker Type Used: Cigarettes Former Smoker, Quit: Jan 03, 2017 2nd Hand Smoke Exposure: No Recent Foreign Travel: No Contact w/Someone Who Travel: No Recent Infectious Disease Expo: No Recent Hopitalizations: No Immunizations Up To Date Tetanus Booster (TDap): Less than 5yrs Date of Pneumonia Vaccine: Feb 01, 2012 Date of Influenza Vaccine: Mar 03, 2016 Seasonal Allergies Seasonal Allergies: Yes Past Medical History Surgeries: Yes Appendectomy Respiratory: Yes Sleep Apnea Currently Using CPAP: Yes Cardiac: Yes Heart Murmur, High Cholesterol, Hypertension Neurological: No Reproductive Disorders: No Genitourinary: No Gastrointestinal: No Gastroesophageal Reflux Musculoskeletal: Yes Arthritis Endocrine: Yes Hypothyroidsim Glaucoma Loss of Vision: Denies Hearing Impairment: Denies Cancer: No Psychosocial: Yes Anxiety, Schizophrenia, Depression Integumentary: No Blood Disorders: No Adverse Reaction/Blood Tranf: No Family Medical History Heart Disease, Hypertension, Stroke Physical Exam Vital Signs Vital Signs - First Documented 01/08/19 10:09 Temp 97.3 Pulse 74 Resp 18 B/P (MAP) 191/107 (135) Pulse Ox 97 O2 Delivery Room Air Capillary Refill : Less Than 3 Seconds General Appearance: WD/WN, no apparent distress HEENT: normal ENT inspection Neck: full range of motion Cardiovascular: regular rate, rhythm Respiratory: normal breath sounds Gastrointestinal: normal bowel sounds Back: normal inspection Extremities: normal range of motion Neurologic/Psychiatric: no motor/sensory deficits Skin: rash (poison amanda) Skin Problem Location: upper extremities Progress/Results/Core Measures Results/Orders My Orders Orders - MARTA MAX MD Methylprednisolone Sod Succ (Solu-Medrol (01/08/19 10:30) Vital Signs/I&O 01/08/19 10:09 Temp 97.3 Pulse 74 Resp 18 B/P (MAP) 191/107 (135) Pulse Ox 97 O2 Delivery Room Air Blood Pressure Mean: 135 Progress Progress Note : Time: 10:27 Progress Note Patient was given 125 mg Solu-Medrol IM. Departure Impression Primary Impression: Contact dermatitis due to poison amanda Disposition: 01 HOME, SELF-CARE Condition: Improved Departure-Patient Inst. Decision time for Depature: 10:28 Referrals: JUANITA ABBASI DO (PCP/Family) Primary Care Physician Patient Instructions: Contact Dermatitis (DC) Add. Discharge Instructions: Prednisone, triamcinolone, and Pepcid as prescribed. Follow-up with Dr. Abbasi if not improved in the next 24-48 hours. Return if any problems or questions All discharge instructions reviewed with patient and/or family. Voiced understanding. Scripts Triamcinolone Acet (Triamcinolone Acetonide 0.1% Cream) 15 Gm Cr 80 GM TP TID PRN for ITCHING for 10 Days, TUBE Prov: MARTA MAX MD 01/08/19 Famotidine (Pepcid) 20 Mg Tablet 20 MG PO BID for Itching, #20 TAB Prov: MANSOOR, MARTA S MD 01/08/19 Prednisone (Prednisone) 20 Mg Tab 40 MG PO DAILY for 10 Days, #6 TAB 0 Refills Prov: MARTA MAX MD 01/08/19 MARTA MAX MD Jan 08, 2019 10:31
[2019-01-08 10:42] VITALS: BP 178/94
== END 2019-01-08 10:40 | disposition home or self-care (01) ==
LOC: EDUNIT# 10:02 → ER 10:03
DX: L23.7 Allergic contact dermatitis due to plants, except food (principal); G47.30 Sleep apnea, unspecified; I10 Essential (primary) hypertension; E78.00 Pure hypercholesterolemia, unspecified; K21.9 Gastro-esophageal reflux disease without esophagitis; E03.9 Hypothyroidism, unspecified; F41.9 Anxiety disorder, unspecified; F20.9 Schizophrenia, unspecified; Z82.49 Family history of ischemic heart disease and other diseases of the circulatory system; Z87.891 Personal history of nicotine dependence; Z90.49 Acquired absence of other specified parts of digestive tract
CPT/HCPCS: 96372; 99284

== ENCOUNTER 2019-05-22 01:05 | Emergency (ER) | payer MEDICARE ==
[~2019-05-22] VITALS: Ht 170.1 cm; Wt 90.2 kg
[~2019-05-22 01:05] MED LIST changes: +AMLO5TAB9; +FAMO-119 PO; +FURO20TA4; +LISI40TA; +PRD20T PO; +SIMV40TA25 PO; -SIMV40TA4 PO; +TR1C15 TP
[2019-05-22] MEDS ORDERED: KETOROLAC 30 MG/ML VIAL IVP STA (01:23)
--- NOTE | 2019-05-22 01:36 | ED General ---
General Chief Complaint: General Problems/Pain Stated Complaint: BI LAT LEG PAIN History of Present Illness Date Seen by Provider: May 22, 2019 Time Seen by Provider: 01:14 Initial Comments Here with complaint of bilateral leg pain and overall not feeling well. Unsure fevers. He has tried Tylenol for the pain. Denies cough, runny nose or vomiting. States he has arthritis but this seems to be worse and is not sure why is hurting. Denies any recent illness or injury. Timing/Duration: 1-2 Days Severity: Moderate Associated Systoms: No Chest Pain, No Cough, No Fever/Chills, No Nausea/Vomiting, No Weakness Allergies and Home Medications Allergies Coded Allergies: No Known Drug Allergies (Unverified , 05/15/10) Home Medications Famotidine 20 Mg Tablet, 20 MG PO BID Prescribed by: MARTA MAX MD on 01/08/19 1031 Levothyroxine Sodium 50 Mcg Tablet, 50 MCG PO DAILY Prescribed by: JUANITA ABBASI on 04/21/16 0718 Potassium Chloride 10 Meq Tablet.er, 10 MEQ PO DAILY Prescribed by: JUANITA ABBASI on 04/21/16 0718 Prednisone 20 Mg Tab, 40 MG PO DAILY Prescribed by: MARTA MAX MD on 01/08/19 1031 Sertraline HCl 100 Mg Tablet, 100 MG PO DAILY@1730, (Reported) Triamcinolone Acet 15 Gm Cr, 80 GM TP TID PRN for ITCHING Prescribed by: MARTA MAX MD on 01/08/19 1031 Patient Home Medication List Home Medication List Reviewed: Yes Review of Systems Review of Systems Constitutional: see HPI; No chills, No fever EENTM: no symptoms reported Respiratory: no symptoms reported Cardiovascular: no symptoms reported Gastrointestinal: no symptoms reported Musculoskeletal: see HPI, joint pain, muscle pain Skin: no symptoms reported Psychiatric/Neurological: No Symptoms Reported Past Lzfzmig-Hgsjtv-Lwrkta Hx Past Med/Social Hx: Reviewed Nursing Past Med/Soc Hx Patient Social History Alcohol Use: Denies Use Recreational Drug Use: No Smoking Status: Former Smoker Type Used: Cigarettes Former Smoker, Quit: Jan 03, 2017 2nd Hand Smoke Exposure: No Recent Foreign Travel: No Contact w/Someone Who Travel: No Recent Hopitalizations: No Physical Abuse: No Sexual Abuse: No Mistreated: No Fear: No Immunizations Up To Date Tetanus Booster (TDap): Less than 5yrs Date of Pneumonia Vaccine: Feb 01, 2012 Date of Influenza Vaccine: Mar 03, 2016 Seasonal Allergies Seasonal Allergies: Yes Past Medical History Surgeries: Yes Appendectomy Respiratory: Yes Sleep Apnea Currently Using CPAP: Yes Cardiac: Yes Heart Murmur, High Cholesterol, Hypertension Neurological: No Reproductive Disorders: No Genitourinary: No Gastrointestinal: No Gastroesophageal Reflux Musculoskeletal: Yes Arthritis Endocrine: Yes Hypothyroidsim Glaucoma Loss of Vision: Denies Hearing Impairment: Denies Cancer: No Psychosocial: Yes Anxiety, Schizophrenia, Depression Integumentary: No Blood Disorders: No Adverse Reaction/Blood Tranf: No Family Medical History Reviewed Nursing Family Hx Heart Disease, Hypertension, Stroke Physical Exam Vital Signs Vital Signs - First Documented 05/22/19 01:14 Temp 36.7 Pulse 80 Resp 20 B/P (MAP) 135/79 (97) Pulse Ox 99 Capillary Refill : Height, Weight, BMI Height: 5'7.00" Weight: 210lbs. 9.0oz. 95.583569bb; 34.0 BMI Method:Actual General Appearance: No Apparent Distress, WD/WN HEENT: PERRL/EOMI, Pharynx Normal Neck: Non Tender, Supple Respiratory: Lungs Clear, Normal Breath Sounds Cardiovascular: Regular Rate, Rhythm, No Murmur Back: Normal Inspection, No CVA Tenderness, No Vertebral Tenderness Extremity: Normal Inspection, Normal Range of Motion, No Calf Tenderness, Other (reports pain in his legs but not tender to palpation specifically) Neurologic/Psychiatric: Alert, Oriented x3 Skin: Normal Color, Warm/Dry Progress/Results/Core Measures Suspected Sepsis SIRS Temperature: Pulse: Respiratory Rate: Laboratory Tests 05/22/19 01:30: White Blood Count 6.9 Blood Pressure / Mean: Laboratory Tests 05/22/19 01:30: Creatinine 0.87, Platelet Count 210, Total Bilirubin 1.9H Results/Orders Lab Results Laboratory Tests Test 05/22/19 01:14 05/22/19 01:30 Range/Units Urine Color YELLOW Urine Clarity CLEAR Urine pH 6.0 5-9 Urine Specific [place] 1.020 1.016-1.022 Urine Protein NEGATIVE NEGATIVE Urine Glucose (UA) NEGATIVE NEGATIVE Urine Ketones NEGATIVE NEGATIVE Urine Nitrite NEGATIVE NEGATIVE Urine Bilirubin NEGATIVE NEGATIVE Urine Urobilinogen 0.2 < = 1.0 MG/DL Urine Leukocyte Esterase 1+ H NEGATIVE Urine RBC (Auto) NEGATIVE NEGATIVE Urine RBC NONE /HPF Urine WBC 0-2 /HPF Urine Squamous Epithelial Cells 0-2 /HPF Urine Crystals NONE /LPF Urine Bacteria FEW H /HPF Urine Casts NONE /LPF Urine Mucus NEGATIVE /LPF Urine Culture Indicated CULTURE PENDING White Blood Count 6.9 4.3-11.0 10^3/uL Red Blood Count 4.90 4.35-5.85 10^6/uL Hemoglobin 14.5 13.3-17.7 G/DL Hematocrit 44 40-54 % Mean Corpuscular Volume 89 80-99 FL Mean Corpuscular Hemoglobin 30 25-34 PG Mean Corpuscular Hemoglobin Concent 33 32-36 G/DL Red Cell Distribution Width 14.3 10.0-14.5 % Platelet Count 210 130-400 10^3/uL Mean Platelet Volume 10.3 7.4-10.4 FL Neutrophils (%) (Auto) 70 42-75 % Lymphocytes (%) (Auto) 18 12-44 % Monocytes (%) (Auto) 10 0-12 % Eosinophils (%) (Auto) 2 0-10 % Basophils (%) (Auto) 0 0-10 % Neutrophils # (Auto) 4.8 1.8-7.8 X 10^3 Lymphocytes # (Auto) 1.3 1.0-4.0 X 10^3 Monocytes # (Auto) 0.7 0.0-1.0 X 10^3 Eosinophils # (Auto) 0.1 0.0-0.3 10^3/uL Basophils # (Auto) 0.0 0.0-0.1 10^3/uL Sodium Level 141 135-145 MMOL/L Potassium Level 3.7 3.6-5.0 MMOL/L Chloride Level 101 98-107 MMOL/L Carbon Dioxide Level 26 21-32 MMOL/L Anion Gap 14 5-14 MMOL/L Blood Urea Nitrogen 11 7-18 MG/DL Creatinine 0.87 0.60-1.30 MG/DL Estimat Glomerular Filtration Rate > 60 BUN/Creatinine Ratio 13 Glucose Level 135 H 70-105 MG/DL Calcium Level 9.3 8.5-10.1 MG/DL Corrected Calcium 8.9 8.5-10.1 MG/DL Total Bilirubin 1.9 H 0.1-1.0 MG/DL Aspartate Amino Transf (AST/SGOT) 21 5-34 U/L Alanine Aminotransferase (ALT/SGPT) 27 0-55 U/L Alkaline Phosphatase 59 40-136 U/L C-Reactive Protein High Sensitivity 0.13 0.00-0.50 MG/DL Total Protein 7.8 6.4-8.2 GM/DL Albumin 4.5 3.2-4.5 GM/DL Micro Results Microbiology 05/22/19 Influenza Types A,B Antigen (LUCIUS) - Final, Complete My Orders Orders - OTILIA RIVERA MD Cbc With Automated Diff (05/22/19 01:23) Comprehensive Metabolic Panel (05/22/19 01:23) Hs C Reactive Protein (05/22/19 01:23) Ua Culture If Indicated (05/22/19:23) Influenza A And B Antigens (05/22/19 01:23) Ed Iv/Invasive Line Start (05/22/19 01:23) Ketorolac Injection (Toradol Injection) (05/22/19 01:23) Ed Iv/Invasive Line Start (05/22/19 01:37) Ns Iv 500 Ml (Sodium Chloride 0.9%) (05/22/19 01:37) Urine Culture (05/22/19 01:37) Medications Given in ED Current Medications Medications Dose Ordered Sig/Ankit Route Start Time Stop Time Status Last Admin Dose Admin Sodium Chloride 500 ml @ 0 mls/hr Q0M ONCE IV 05/22/19 01:37 05/22/19 01:38 DC 05/22/19 01:46 999 MLS/HR Vital Signs/I&O 05/22/19 01:14 Temp 36.7 Pulse 80 Resp 20 B/P (MAP) 135/79 (97) Pulse Ox 99 Capillary Refill : Progress Note : Progress Note Seen and evaluated. IV, labs, influenza screen and Toradol 30 mg IV ordered. Normal saline 500 mL bolus. Monitor patient. 0213: Overall feels much better but still has a little bit of pain. He feels comfortable going home but he would like to go home and rest instead of going to work which I agree with. He follows with Dr. Abbasi have asked him to follow-up with him. I will send a copy of the chart over to Dr. Abbasi. He may benefit from ibuprofen for a few days and this may be simply his arthritis is aggravated. Discharged home with return precautions. Patient verbalize understanding instructions and agreement with plan. Departure Impression Primary Impression: Arthralgia Qualified Codes: M25.551 - Pain in right hip; M25.552 - Pain in left hip Disposition: HOME, SELF-CARE Condition: Improved Departure-Patient Inst. Decision time for Depature: 02:15 Referrals: JUANITA ABBASI DO (PCP/Family) Primary Care Physician Patient Instructions: Muscle and Bone Pain (DC), Joint Pain Add. Discharge Instructions: All discharge instructions reviewed with patient and/or family. Voiced understanding. You may continue to take Tylenol 1000 mg every 8 hours as needed for pain. You may take ibuprofen 400 mg (2 dlgj-rof-wddxgre tablets) every 6 hours as needed for pain. Drink an adequate amount of fluids. Follow-up with your doctor today or tomorrow for recheck and further evaluation. Return for worse pain, fever, weakness, breathing problems or other concerns as needed. Work/School Note: Work Release Form Date Seen in the Emergency Department: May 22, 2019 Return to Work: May 23, 2019 Restrictions: No Restrictions Copy Copies To 1: JUANITA ABBASI TIMOTHY D MD May 22, 2019 01:36
[2019-05-22] MEDS ORDERED: NS IV 500 ML 500 ML IV ONE (01:37)
[2019-05-22 01:38] LABS: BASOPHILS % (AUTO) 0 % (0-10); EOSINOPHILS # (AUTO) 0.1 10^3/uL (0.0-0.3); EOSINOPHILS % (AUTO) 2 % (0-10); HEMATOCRIT 44 % (40-54); HEMOGLOBIN 14.5 G/DL (13.3-17.7); LYMPHOCYTES # (AUTO) 1.3 X 10^3 (1.0-4.0); LYMPHOCYTES % (AUTO) 18 % (12-44); MEAN CORPUSCULAR HEMOGLOBIN 30 PG (25-34); MEAN CORPUSCULAR HGB CONC 33 G/DL (32-36); MEAN CORPUSCULAR VOLUME 89 FL (80-99); MEAN PLATELET VOLUME 10.3 FL (7.4-10.4); MONOCYTES # (AUTO) 0.7 X 10^3 (0.0-1.0); MONOCYTES % (AUTO) 10 % (0-12); NEUTROPHILS # (AUTO) 4.8 X 10^3 (1.8-7.8); NEUTROPHILS % (AUTO) 70 % (42-75); PLATELET COUNT 210 10^3/uL (130-400); RED CELL DISTRIBUTION WIDTH 14.3 % (10.0-14.5); WHITE BLOOD COUNT 6.9 10^3/uL (4.3-11.0)
[2019-05-22 01:49] LABS: BILIRUBIN,URINE NEGATIVE (NEGATIVE); CLARITY,URINE CLEAR; COLOR,URINE YELLOW; GLUCOSE, URINE (UA) NEGATIVE (NEGATIVE); KETONES,URINE NEGATIVE (NEGATIVE); LEUKOCYTE ESTERASE ,URINE 1+ (NEGATIVE); NITRITE,URINE NEGATIVE (NEGATIVE); PROTEIN,URINE NEGATIVE (NEGATIVE)
[2019-05-22 01:51] LABS: BACTERIA,URINE FEW /HPF; SQUAMOUS EPITHELIAL CELL,UR 0-2 /HPF; WBC,URINE 0-2 /HPF
[2019-05-22 01:55] LABS: ALANINE AMINOTRANSFERASE 27 U/L (0-55); ALBUMIN 4.5 GM/DL (3.2-4.5); ALKALINE PHOSPHATASE 59 U/L (40-136); BILIRUBIN,TOTAL 1.9 MG/DL (0.1-1.0); BUN/CREATININE RATIO 13; CALCIUM 9.3 MG/DL (8.5-10.1); CARBON DIOXIDE 26 MMOL/L (21-32); CHLORIDE 101 MMOL/L (98-107); CREATININE SERUM 0.87 MG/DL (0.60-1.30); GFR ESTIMATED > 60; GLUCOSE 135 MG/DL (70-105); POTASSIUM 3.7 MMOL/L (3.6-5.0); SODIUM 141 MMOL/L (135-145); TOTAL PROTEIN 7.8 GM/DL (6.4-8.2)
[2019-05-22 02:17] VITALS: BP 141/86
== END 2019-05-22 02:25 | disposition home or self-care (01) ==
LOC: EDUNIT# 01:05 → ER 01:06
DX: M25.50 Pain in unspecified joint (principal); I10 Essential (primary) hypertension; E78.00 Pure hypercholesterolemia, unspecified; G47.30 Sleep apnea, unspecified; K21.9 Gastro-esophageal reflux disease without esophagitis; E03.9 Hypothyroidism, unspecified; F41.9 Anxiety disorder, unspecified; F20.9 Schizophrenia, unspecified; Z99.89 Dependence on other enabling machines and devices; Z79.52 Long term (current) use of systemic steroids; Z87.891 Personal history of nicotine dependence; Z90.49 Acquired absence of other specified parts of digestive tract; Z82.49 Family history of ischemic heart disease and other diseases of the circulatory system
CPT/HCPCS: 36415; 80053; 81000; 85025; 86141; 87088; 87804; 96374

== ENCOUNTER → 2020-04-04 | Outpatient (CLI) | payer MEDICARE ==
[~2020-04-04] MED LIST changes: +AMLO-250; -AMLO5TAB9
--- NOTE | 2020-04-04 09:09 | Diagnostic Imaging Report ---
CLINICAL INDICATION: Patient right upper quadrant pain. Patient states gallstones are seen on an x-ray. EXAM: Right upper quadrant ultrasound. COMPARISON: CT scan of the abdomen and pelvis performed with contrast dated 08/01/2013. FINDINGS: Pancreas normal appearance with no mass or significant abnormality. The visualized portions of abdominal aorta and IVC are unremarkable. Liver has normal echogenicity and echotexture with no mass seen. The liver measures 17.1 cm, but there is a slightly small left lobe of the liver and suspect a Emily's lobe. This is better seen on the comparison CT scan. Mildly prominent portal vein measuring 14 mm which is stable compared to the prior CT scan. There are multiple mobile stones seen within the gallbladder or posterior shadowing. There is no gallbladder wall thickening or sonographic Trotter sign. There is no pericholecystic fluid. Gallbladder is mildly fluid filled. Patient was noted to have gallstones on the prior CT scan. There is no intrahepatic or extra hepatic ductal dilation. Common bile duct measures 5 mm. The right kidney has normal cortical thickness, size and configuration with no hydronephrosis. Right kidney measures 12.4 cm in craniocaudal dimension. There is no abdominal ascites. IMPRESSION: 1: Cholelithiasis with no evidence of cholecystitis. 2: Otherwise, the remainder of this exam is unremarkable. Dictated by: Dictated on workstation # [id number]
== END ==
LOC: RAD 08:00
PROVIDERS: ATTEND Family Medicine
DX: K80.20 Calculus of gallbladder without cholecystitis without obstruction (principal)
CPT/HCPCS: 76705

== ENCOUNTER 2020-11-25 00:05 | Emergency (ER) | payer MEDICARE ==
[~2020-11-25] VITALS: Ht 172 cm; Wt 90.2 kg
[~2020-11-25 00:05] MED LIST changes: -LISI10TA2 PO; +LISI10TA25 PO; -LISI40TA; +LISI40TA9; +SERT-414 PO; -SERT100T8 PO
[2020-11-25] MEDS ORDERED: DEXA6TAB6 PO (00:55)
--- NOTE | 2020-11-25 00:56 | ED Respiratory ---
General Chief Complaint: Cough/Cold/Flu Symptoms Stated Complaint: CONGESTION/SOB/COVID POS Allergies and Home Medications Allergies Coded Allergies: No Known Drug Allergies (Unverified , 05/15/10) Home Medications Famotidine 20 Mg Tablet, 20 MG PO BID Prescribed by: MARTA MAX MD on 01/08/19 1031 Levothyroxine Sodium 50 Mcg Tablet, 50 MCG PO DAILY Prescribed by: JUANITA ABBASI on 04/21/16 0718 Potassium Chloride 10 Meq Tablet.er, 10 MEQ PO DAILY Prescribed by: JUANITA ABBASI on 04/21/16 0718 Prednisone 20 Mg Tab, 40 MG PO DAILY Prescribed by: MARTA MAX MD on 01/08/19 1031 Sertraline HCl 100 Mg Tablet, 100 MG PO DAILY@1730, (Reported) Triamcinolone Acet 15 Gm Cr, 80 GM TP TID PRN for ITCHING Prescribed by: MARTA MAX MD on 01/08/19 1031 Past Notyuws-Jhtywu-Lecbay Hx Immunizations Up To Date Tetanus Booster (TDap): Less than 5yrs Seasonal Allergies Seasonal Allergies: Yes Past Medical History Surgeries: Yes Appendectomy Respiratory: Yes Sleep Apnea Currently Using CPAP: Yes Cardiac: Yes Heart Murmur, High Cholesterol, Hypertension Neurological: No Reproductive Disorders: No Genitourinary: No Gastrointestinal: No Gastroesophageal Reflux Musculoskeletal: Yes Arthritis Endocrine: Yes Hypothyroidsim Glaucoma Loss of Vision: Denies Hearing Impairment: Denies Cancer: No Psychosocial: Yes Anxiety, Schizophrenia, Depression Integumentary: No Blood Disorders: No Adverse Reaction/Blood Tranf: No Family Medical History Heart Disease, Hypertension, Stroke Physical Exam Capillary Refill : Height: 5'7.00" Weight: 210lbs. 9.0oz. 95.569760og; 31.00 BMI Method:Actual Progress/Results/Core Measures Suspected Sepsis SIRS Temperature: Pulse: Respiratory Rate: Blood Pressure / Mean: Results/Orders My Orders Orders - TODD BARRIOS DO Chest 1 View, Ap/Pa Only (11/25/20 00:25) Vital Signs/I&O Capillary Refill : Departure Impression Primary Impression: COVID-19 virus infection Disposition: HOME, SELF-CARE Condition: Stable Departure-Patient Inst. Referrals: JUANITA ABBASI DO (PCP/Family) Primary Care Physician Patient Instructions: COVID-19 (DC), Preventing the Spread of an Infectious Disease, Recovery After COVID-19, REGEN-COV (casirivimab and imdevimab) FDA Fact Sheet Add. Discharge Instructions: QUARANTINE YOURSELF AND ALL HOUSEHOLD AND CLOSE CONTACTS FOR THE NEXT 2 WEEKS TYLENOL 1 GRAM / MOTRIN 800 MG 4 TIMES A DAY FOR PAIN OR FEVER MUCINEX DM FOR COUGH, CLARITIN 10 MG FOR CONGESTION CALL IN THE MORNING TO SCHEDULE REGEN-COV INFUSION FOLLOW UP WITH DR. ABBASI THIS WEEK FOR FURTHER CARE All discharge instructions reviewed with patient and/or family. Voiced understanding. Scripts Dexamethasone (Decadron) 6 Mg Tablet 6 MG PO DAILY, #10 TAB Prov: TODD BARRIOS DO 11/25/20 TODD BARRIOS DO Nov 25, 2020 00:56
[2020-11-25 01:34] VITALS: BP 127/77
--- NOTE | 2020-11-25 06:08 | Diagnostic Imaging Report ---
Clinical indication: Patient with shortness of breath and Covid positive. Exam: Portable chest x-ray upright view. Comparisons: Chest x-ray dated 07/22/2016. Findings: Lungs/pleura: Lungs are clear. There is no pneumothorax. There is no pleural effusion. Mediastinum: Unremarkable. Pulmonary vasculature: Unremarkable. Heart: Unremarkable. Bones/extrathoracic soft tissue: There are hypertrophic spurs involving the thoracic spine. Impression: There is no radiographic evidence of acute cardiopulmonary process. Dictated by: Dictated on workstation # [id number]
== END 2020-11-25 01:49 | disposition home or self-care (01) ==
LOC: EDUNIT# 00:05 → ER 00:06
DX: U07.1 COVID-19 (principal); G47.30 Sleep apnea, unspecified; I10 Essential (primary) hypertension; K21.9 Gastro-esophageal reflux disease without esophagitis; E03.9 Hypothyroidism, unspecified; F41.9 Anxiety disorder, unspecified; F32.9 Major depressive disorder, single episode, unspecified; Z79.52 Long term (current) use of systemic steroids; Z79.899 Other long term (current) drug therapy; Z79.890 Hormone replacement therapy
CPT/HCPCS: 71045

== ENCOUNTER → 2020-11-29 | Outpatient (CLI) | payer MEDICARE ==
[~2020-11-29] VITALS: Ht 170 cm; Wt 91.8 kg
[~2020-11-29] MED LIST changes: +CASIRIVIMAB/IMDEVIMAB 1,200 MG in NS (IVPB) 250 ML IV ONE; +DEXA6TAB6 PO; +EPINEPHrine INJECTION 1 MG/ML AMP IM PRN; +diphenhydrAMINE 50 MG/ML INJ (BENADRYL) IV PRN
[2020-11-29 10:20] VITALS: BP 140/86
[2020-11-29 12:06] VITALS: BP 130/80
== END ==
LOC: INFUSION 10:17
PROVIDERS: ATTEND Emergency Medicine
DX: Z23 Encounter for immunization (principal); U07.1 COVID-19

== ENCOUNTER 2021-01-02 18:57 | Observation (INO) | payer MEDICARE ==
[~2021-01-02] VITALS: Ht 172 cm; Wt 102.0 kg
[~2021-01-02 18:57] MED LIST changes: -CASIRIVIMAB/IMDEVIMAB 1,200 MG in NS (IVPB) 250 ML IV ONE; -EPINEPHrine INJECTION 1 MG/ML AMP IM PRN; -diphenhydrAMINE 50 MG/ML INJ (BENADRYL) IV PRN
[2021-01-02] MEDS ORDERED: ARIP15TA20 PO (19:31)
[2021-01-02] MEDS ORDERED: DIVA500T15 PO (19:31)
[2021-01-02] MEDS ORDERED: ATOR20TA66 PO (19:31)
[2021-01-02 20:21] LABS: BILIRUBIN,URINE NEGATIVE (NEGATIVE); CLARITY,URINE CLEAR; COLOR,URINE YELLOW; GLUCOSE, URINE (UA) NEGATIVE (NEGATIVE); KETONES,URINE NEGATIVE (NEGATIVE); LEUKOCYTE ESTERASE ,URINE NEGATIVE (NEGATIVE); NITRITE,URINE NEGATIVE (NEGATIVE); PROTEIN,URINE NEGATIVE (NEGATIVE)
[2021-01-02 20:41] LABS: BASOPHILS % (AUTO) 0 % (0-10); EOSINOPHILS # (AUTO) 0.1 10^3/uL (0.0-0.3); EOSINOPHILS % (AUTO) 2 % (0-10); HEMATOCRIT 42 % (40-54); HEMOGLOBIN 13.3 g/dL (13.3-17.7); LYMPHOCYTES # (AUTO) 1.5 10^3/uL (1.0-4.0); LYMPHOCYTES % (AUTO) 23 % (12-44); MEAN CORPUSCULAR HEMOGLOBIN 30 pg (25-34); MEAN CORPUSCULAR HGB CONC 32 g/dL (32-36); MEAN CORPUSCULAR VOLUME 94 fL (80-99); MEAN PLATELET VOLUME 10.5 fL (9.0-12.2); MONOCYTES # (AUTO) 0.9 10^3/uL (0.0-1.0); MONOCYTES % (AUTO) 14 % (0-12); NEUTROPHILS # (AUTO) 4.1 10^3/uL (1.8-7.8); NEUTROPHILS % (AUTO) 62 % (42-75); PLATELET COUNT 201 10^3/uL (130-400); WHITE BLOOD COUNT 6.6 10^3/uL (4.3-11.0)
[2021-01-02 20:48] LABS: AMORPHOUS SEDIMENT,UR FEW AMOR URATES /LPF; BACTERIA,URINE TRACE /HPF
[2021-01-02 20:56] LABS: AMPHETAMINE SCREEN, URINE NEGATIVE (NEGATIVE); BARBITURATE SCREEN URINE NEGATIVE (NEGATIVE); BENZODIAZEPINES SCREEN URINE NEGATIVE (NEGATIVE); CANNABINOID SCREEN, URINE NEGATIVE (NEGATIVE); COCAINE SCREEN URINE NEGATIVE (NEGATIVE); METHADONE STAT NEGATIVE (NEGATIVE); METHAMPHETAMINE SCREEN URINE S NEGATIVE (NEGATIVE); OPIATE SCREEN URINE NEGATIVE (NEGATIVE); OXYCODONE STAT NEGATIVE (NEGATIVE); PROPOXYPHENE STAT NEGATIVE (NEGATIVE); TRICYCLIC ANTIDEPRESSANTS SCRE NEGATIVE (NEGATIVE)
--- NOTE | 2021-01-02 21:03 | ED Psychosocial ---
General Chief Complaint: Altered Mental Status Stated Complaint: SUICIDAL Nursing Triage Note: BROUGHT IN BY EX. AFTER DC FROM [facility] TODAY AT 1800. PT REPORTS WANTING COVID VACCINE. PT'S EX REPORTS PT'S BEHAVIOR NOT IMPROVED FROM ADMISSION TO [facility]. PT DENIES HOMICIDIAL/SUICIDIAL IDEATION AT THIS TIME. Source: patient (VERY LIMITED HISTORIAN AND APPEARS MENTALLY CHALLENGED. ), other (EX- GIVES ALL INFORMATION) History of Present Illness Date Seen by Provider: Jan 02, 2021 Time Seen by Provider: 19:25 Initial Comments PT ARRIVES VIA POV WITH EX- EX- ( HAVE BEEN 12 YEARS) STATES THAT PT WAS ADMITTED TO [facility] IN [place] ON Wednesday12/27/20, AND [facility] [phone] SHE STATES "HE'S STILL GOT CONFUSION--HE ISNT' ANY BETTER" WAS ADMITTED FOR DELUSIONS AND SUICIDAL IDEATIONS SHE STATES THAT SINCE HE GOT IN THE CAR AFTER BEING DISMISSED FROM [facility], THAT "HE HAS BEEN SAYING THAT HE'S GOING TO KILL SOMEONE OR KILL HIMSELF" SHE STATES "HE SAYS THAT MY AUNT'S GONNA KILL ME" SHE ALSO STATES THAT HE HAS BEEN SEEING AND TALKING TO HIS GRANDMA AND HIS BROTHER, WHO ARE BOTH PT DOES STATE " SHE IS ALIVE AND WELL AND I SAW HER AND I TALKED TO HER" HOWEVER, ON DIRECT QUESTIONING IF HE IS SUICIDAL OR HOMICIDAL NOW, HE STATES NO EX- REFUSES TO TAKE HIM HOME SHE STATES HE LIVES ALONE AND SHE IS THE ONLY ONE WHO LOOKS AFTER HIM, AND STATES IT IS NOT SAFE FOR HIM TO BE ALONE BY HIMSELF ON ARRIVAL, PT STATES "I'M HERE FOR MY COVID SHOT" PT HAD HIS FIRST COVID-19 VACCINE ON 11/18/20 TESTED + FOR COVID-19 ON 11/19/20 AT [facility] THRU TESTING SEEN IN ER 11/25/20 HAD [facility] INFUSION 11/29/20. PCP: DR. ABBASI Allergies and Home Medications Allergies Coded Allergies: No Known Drug Allergies (Unverified , 05/15/10) Patient Home Medication List Home Medication List Reviewed: Yes Aripiprazole (Aripiprazole) 15 Mg Tablet, (Reported) Entered as Reported by: RUPERTO SELLERS on 01/02/211930 Last Action: New Order Atorvastatin Calcium (Atorvastatin Calcium) 20 Mg Tablet, (Reported) Entered as Reported by: RUPERTO SELLERS on 01/02/211930 Last Action: New Order Divalproex Sodium (Divalproex Sodium ER) 500 Mg Tab.er.24h, (Reported) Entered as Reported by: RUPERTO SELLERS on 01/02/211930 Last Action: New Order Discontinued Medications Amlodipine Besylate (Amlodipine Besylate) 5 Mg Tablet, (Reported) Discontinued Reason: No Longer Taking Entered as Reported by: NALINI WHEATLEY on 01/08/191018 Last Action: Discontinued Aripiprazole (Abilify) 30 Mg Tablet, 30 MG PO, (Reported) Discontinued Reason: No Longer Taking Entered as Reported by: RJ SON on 04/26/17 0748 Last Action: Discontinued Dexamethasone (Decadron) 6 Mg Tablet, 6 MG PO DAILY Discontinued Reason: No Longer Taking Prescribed by: TODD BARRIOS on 11/25/20 0055 Last Action: Discontinued Famotidine (Pepcid) 20 Mg Tablet, 20 MG PO BID Discontinued Reason: No Longer Taking Prescribed by: MARTA MAX MD on 01/08/19 103 Last Action: Discontinued Furosemide (Furosemide) 20 Mg Tablet, (Reported) Discontinued Reason: No Longer Taking Entered as Reported by: NALINI WHEATLEY on 01/08/191018 Last Action: Discontinued Levothyroxine Sodium (Levothyroxine Sodium) 50 Mcg Tablet, 50 MCG PO DAILY Discontinued Reason: No Longer Taking Prescribed by: JUANITA ABBASI on 04/21/16717 Last Action: Discontinued Lisinopril (Lisinopril) 40 Mg Tablet, (Reported) Discontinued Reason: No Longer Taking Entered as Reported by: NALINI WHEATLEY on 01/08/191018 Last Action: Discontinued Potassium Chloride (Potassium Chloride) 10 Meq Tablet.er, 10 MEQ PO DAILY Discontinued Reason: No Longer Taking Prescribed by: JUANITA ABBASI on 04/21/16717 Last Action: Discontinued Prednisone (Prednisone) 20 Mg Tab, 40 MG PO DAILY Discontinued Reason: No Longer Taking Prescribed by: MARTA MAX MD on 01/08/19 1031 Last Action: Discontinued Sertraline HCl (Sertraline HCl) 100 Mg Tablet, 100 MG PO DAILY@1730, (Reported) Discontinued Reason: No Longer Taking Entered as Reported by: KASH SMITH on 04/20/16 1544 Last Action: Discontinued Triamcinolone Acet (Triamcinolone Acetonide 0.1% Cream) 15 Gm Cr, 80 GM TP TID PRN for ITCHING Discontinued Reason: No Longer Taking Prescribed by: MARTA MAX MD on 01/08/19 1031 Last Action: Discontinued Review of Systems Constitutional: no symptoms reported EENTM: no symptoms reported Respiratory: no symptoms reported Cardiovascular: no symptoms reported Gastrointestinal: no symptoms reported Genitourinary: no symptoms reported Musculoskeletal: no symptoms reported Skin: no symptoms reported Psychiatric/Neurological: See HPI Past Sqracxg-Mutemt-Waoegq Hx Patient Social History Tobacco Use?: No Use of E-Cig and/or Vaping dev: No Substance use?: No Alcohol Use?: No Pt feels they are or have been: No Immunizations Up To Date Tetanus Booster (TDap): Less than 5yrs Seasonal Allergies Seasonal Allergies: Yes Past Medical History Surgery/Hospitalization HX: HTN, LOW THRYOID, HIGH CHOLESTEROL. Surgeries: Yes Appendectomy Respiratory: Yes Sleep Apnea Currently Using CPAP: Yes Cardiac: Yes Heart Murmur, High Cholesterol, Hypertension Neurological: No Reproductive Disorders: No Genitourinary: No Gastrointestinal: Yes Gastroesophageal Reflux Musculoskeletal: Yes Arthritis Endocrine: Yes Hypothyroidsim Glaucoma Loss of Vision: Denies Hearing Impairment: Denies Cancer: No Psychosocial: Yes (SUICIDAL IDEATIONS; DELUSIONS/HALLUCINATIONS) Anxiety, Schizophrenia, Depression Integumentary: No Blood Disorders: No Adverse Reaction/Blood Tranf: No Family Medical History Heart Disease, Hypertension, Stroke Physical Exam Vital Signs - First Documented 01/02/21 19:12 Temp 36.7 Pulse 94 Resp 18 B/P (MAP) 152/91 (111) Pulse Ox 94 O2 Delivery Room Air Capillary Refill : Less Than 3 Seconds Height, Weight, BMI Height: 5'7.00" Weight: 210lbs. 9.0oz. 95.527560ts; 30.00 BMI Method:Actual General Appearance: WD/WN, no apparent distress, other (SPEECH IMPEDIMENT, APPEARS MENTALLY CHALLENGED/VERY IMMATURE) HEENT: other (POOR DENTITION AND MULTIPLE MISSIJNG TEETH) Respiratory: normal breath sounds, no respiratory distress, no accessory muscle use Cardiovascular: regular rate, rhythm, no murmur Gastrointestinal: non tender, soft Extremities: normal inspection Neurologic/Psychiatric: land development project manager II-XII nml as tested, no motor/sensory deficits, alert Appearance/Memory: disheveled, impaired insight Behavior/Eye Contact: cooperative, good eye contact Thoughts/Hallucinations: auditory hallucinations, delusions, flight of ideas, visual hallucinations Skin: normal color, warm/dry Progress/Results/Core Measures Results/Orders Lab Results Laboratory Tests Test 01/02/21 19:45 01/02/21 20:22 Range/Units Urine Color YELLOW Urine Clarity CLEAR Urine pH 7.0 5-9 Urine Specific [place] 1.015 L 1.016-1.022 Urine Protein NEGATIVE NEGATIVE Urine Glucose (UA) NEGATIVE NEGATIVE Urine Ketones NEGATIVE NEGATIVE Urine Nitrite NEGATIVE NEGATIVE Urine Bilirubin NEGATIVE NEGATIVE Urine Urobilinogen 0.2 < = 1.0 MG/DL Urine Leukocyte Esterase NEGATIVE NEGATIVE Urine RBC (Auto) NEGATIVE NEGATIVE Urine RBC NONE /HPF Urine WBC NONE /HPF Urine Crystals PRESENT H /LPF Urine Amorphous Sediment FEW CAMERON URATES H /LPF Urine Bacteria TRACE /HPF Urine Casts NONE /LPF Urine Mucus NEGATIVE /LPF Urine Culture Indicated NO Urine Opiates Screen NEGATIVE NEGATIVE Urine Oxycodone Screen NEGATIVE NEGATIVE Urine Methadone Screen NEGATIVE NEGATIVE Urine Propoxyphene Screen NEGATIVE NEGATIVE Urine Barbiturates Screen NEGATIVE NEGATIVE Ur Tricyclic Antidepressants Screen NEGATIVE NEGATIVE Urine Phencyclidine Screen NEGATIVE NEGATIVE Urine Amphetamines Screen NEGATIVE NEGATIVE Urine Methamphetamines Screen NEGATIVE NEGATIVE Urine Benzodiazepines Screen NEGATIVE NEGATIVE Urine Cocaine Screen NEGATIVE NEGATIVE Urine Cannabinoids Screen NEGATIVE NEGATIVE White Blood Count 6.6 4.3-11.0 10^3/uL Red Blood Count 4.45 4.30-5.52 10^6/uL Hemoglobin 13.3 13.3-17.7 g/dL Hematocrit 42 40-54 % Mean Corpuscular Volume 94 80-99 fL Mean Corpuscular Hemoglobin 30 25-34 pg Mean Corpuscular Hemoglobin Concent 32 32-36 g/dL Red Cell Distribution Width 14.7 H 10.0-14.5 % Platelet Count 201 130-400 10^3/uL Mean Platelet Volume 10.5 9.0-12.2 fL Immature Granulocyte % (Auto) 0 % Neutrophils (%) (Auto) 62 42-75 % Lymphocytes (%) (Auto) 23 12-44 % Monocytes (%) (Auto) 14 H 0-12 % Eosinophils (%) (Auto) 2 0-10 % Basophils (%) (Auto) 0 0-10 % Neutrophils # (Auto) 4.1 1.8-7.8 10^3/uL Lymphocytes # (Auto) 1.5 1.0-4.0 10^3/uL Monocytes # (Auto) 0.9 0.0-1.0 10^3/uL Eosinophils # (Auto) 0.1 0.0-0.3 10^3/uL Basophils # (Auto) 0.0 0.0-0.1 10^3/uL Immature Granulocyte # (Auto) 0.0 0.0-0.1 10^3/uL Sodium Level 140 135-145 MMOL/L Potassium Level 3.9 3.6-5.0 MMOL/L Chloride Level 101 98-107 MMOL/L Carbon Dioxide Level 30 21-32 MMOL/L Anion Gap 9 5-14 MMOL/L Blood Urea Nitrogen 22 H 7-18 MG/DL Creatinine 0.94 0.60-1.30 MG/DL Estimat Glomerular Filtration Rate 82 BUN/Creatinine Ratio 23 Glucose Level 103 70-105 MG/DL Calcium Level 9.9 8.5-10.1 MG/DL Corrected Calcium 10.1 8.5-10.1 MG/DL Total Bilirubin 0.7 0.1-1.0 MG/DL Aspartate Amino Transf (AST/SGOT) 19 5-34 U/L Alanine Aminotransferase (ALT/SGPT) 25 0-55 U/L Alkaline Phosphatase 48 40-136 U/L Total Protein 7.0 6.4-8.2 GM/DL Albumin 3.8 3.2-4.5 GM/DL TSH Dewitt Testing 1.19 0.35-4.94 UIU/ML Salicylates Level < 5.0 L 5.0-20.0 MG/DL Acetaminophen Level < 10 L 10-30 UG/ML Valproic Acid (Depakene) Level 63.0 50.0-100.0 UG/ML Serum Alcohol < 10 <10 MG/DL My Orders Orders - TODD BARRIOS DO Urinalysis (01/02/21 19:24) Thyroid Analyzer (01/02/21 19:24) Drug Screen Stat (Urine) (01/02/21 19:24) Cbc With Automated Diff (01/02/21 19:24) Comprehensive Metabolic Panel (01/02/21 19:24) Alcohol (01/02/21 19:24) Acetaminophen (01/02/21 19:24) Salicylate (01/02/21 19:24) Ekg Tracing (01/02/21 19:24) Valproic Acid (01/02/21 20:43) Lorazepam Injection (Ativan Injection) (01/02/21 22:15) Vital Signs/I&O 01/02/21 01/02/21 01/02/21 01/03/21 19:12 22:25 23:15 00:49 Temp 36.7 36.8 36.4 Pulse 94 81 77 Resp 18 18 20 B/P (MAP) 152/91 (111) 145/59 119/73 (88) Pulse Ox 94 98 92 O2 Delivery Room Air Room Air Room Air Room Air 01/03/21 04:07 Temp 36.5 Pulse 77 Resp 20 B/P (MAP) 142/78 (99) Pulse Ox 95 O2 Delivery Room Air Blood Pressure Mean: 111 Progress Progress Note : Progress Note UNEVENTFUL ER STAY PT SOMEWHAT ANXIOUS, DID NOT WANT TO STAY IN ROOM,, ETC. BUT EASILY REDIRECTED AND PT COOPERATIVE GIVEN ATIVAN WITHOUT SIGNIFICANT IMPROVEMENT IN ANXIOUSNESS NO BELLIGERENT OR AGGRESSIVE BEHAVIOR OR THREATENING BEHAVIOR. Initial ECG Impression Date: Jan 02, 2021 Initial ECG Impression Time: 20:05 Initial ECG Rate: 84 Initial ECG Rhythm: Normal Sinus Initial ECG Impression: Nonspecific Changes Departure Communication (Admissions) 1937[facility]SPOKE WITH NURSE WHO JUST CAME ON DUTY, BUT IS FAMILIAR WITH PT. STATES "THERE WASN'T ANYTHING ELSE THEY COULD DO FOR HIM". ATTEMPTING TO CONTACT PSYCHIATRIST, DR. WANG. NO ANSWER 1949--[facility], AND AGAIN ATTEMPTING TO CONTACT PSYCHIATRIST. 1949--SPOKE WITH DR. QUEVEDO, HOSPITALIST HERE AND ALSO ADMITTING PHYSICIAN AT [facility]. [facility], AND WILL HAVE [facility] EVALUATION/INTAKE IN THE MORNING. Impression Primary Impression: Passive suicidal ideations Additional Impressions: Schizophrenia HALLUCINATIONS Delusional disorder Disposition: ADMITTED INPATIENT Condition: Stable Admissions Decision to Admit Reason: Admit from ER (General) Decision to Admit/Date: Jan 02, 2021 Time/Decision to Admit Time: 19:50 Departure-Patient Inst. Referrals: JUANITA ABBASI DO (PCP/Family) Primary Care Physician TODD BARRIOS DO Jan 02, 2021 21:03
[2021-01-02 21:09] LABS: ALANINE AMINOTRANSFERASE 25 U/L (0-55); ALBUMIN 3.8 GM/DL (3.2-4.5); ALKALINE PHOSPHATASE 48 U/L (40-136); BILIRUBIN,TOTAL 0.7 MG/DL (0.1-1.0); BUN/CREATININE RATIO 23; CALCIUM 9.9 MG/DL (8.5-10.1); CARBON DIOXIDE 30 MMOL/L (21-32); CHLORIDE 101 MMOL/L (98-107); CREATININE SERUM 0.94 MG/DL (0.60-1.30); GFR ESTIMATED 82; GLUCOSE 103 MG/DL (70-105); POTASSIUM 3.9 MMOL/L (3.6-5.0); SALICYLATE < 5.0 MG/DL (5.0-20.0); SODIUM 140 MMOL/L (135-145)
[2021-01-02 21:14] LABS: ACETAMINOPHEN < 10 UG/ML (10-30)
[2021-01-02 21:29] LABS: TSH (THYROID ANALYZER) 1.19 UIU/ML (0.35-4.94)
[2021-01-02] MEDS ORDERED: LORazepam INJ 2 MG/ML (ATIVAN) VIAL IM ONE (22:15)
[2021-01-02] MEDS ORDERED: LORazepam INJ 2 MG/ML (ATIVAN) VIAL IM PRN (23:15)
[2021-01-02] MEDS ORDERED: HALOPERIDOL 5 MG/ML (HALDOL) VIAL IM PRN (23:15)
[2021-01-03] VITALS (7 sets, daily range): BP systolic 119–169; BP diastolic 73–91
--- NOTE | 2021-01-03 13:31 | History & Physical-Hospitalist ---
History of Present Illness HPI/Chief Complaint Prince Zarate is a 60 year old male with PMH schizophrenia who presented with reported suicidal and homicidal ideations. His ex- picked him up from [facility] yesterday where he had been due to delusions and suicidal ideation. She reported that he had been makind suicidal and homicidal comments. He was also reportedly talking to her about his grandmother and brother as if they were alive, although they are both . Upon arrival, he was not reporting any suicidal or homicidal ideation. On my exam, he is perseverating about his daughter and repeatedly says he wants to let his daughter know he is ok. Source: patient Exam Limitations: clinical condition Date Seen 01/03/21 Time Seen by a Provider: 10:20 Attending Physician Rosangela Arauz DO PCP Modesto Nye DO Referring Physician Date of Admission Jan 02, 2021 at 19:50 Home Medications & Allergies Home Medications Reviewed patient Home Medication Reconciliation performed by pharmacy medication reconciliations broadcast technician and/or nursing. Patients Allergies have been reviewed. Allergies Allergies Coded Allergies No Known Drug Allergies (Unverified05/15/10) Past Rztnrcw-Vtimkw-Tsocsi Hx Patient Social History Tobacco Use?: No Use of E-Cig and/or Vaping dev: No Substance use?: No Alcohol Use?: No Pt feels they are or have been: No Immunizations Up To Date Date of Influenza Vaccine: Mar 03, 2016 Tetanus Booster (TDap): Unknown Date of Pneumonia Vaccine: Feb 01, 2012 Seasonal Allergies Seasonal Allergies: Yes Current Status Advance Directives: No Communicates: Verbally Primary Language: Gambian Preferred Spoken Language: Gambian Is interpretation needed?: No Implanted or Applied Medical D: None Past Medical History Surgeries: Appendectomy Sleep Apnea Currently Using CPAP: Yes Heart Murmur, High Cholesterol, Hypertension Gastroesophageal Reflux Arthritis Hypothyroidsim Glaucoma Loss of Vision: Denies Hearing Impairment: Denies Anxiety, Schizophrenia, Depression Blood Disorders: No Adverse Reaction/Blood Tranf: No Family Medical History Heart Disease, Hypertension, Stroke Review of Systems Constitutional: see HPI Physical Exam Physical Exam Vital Signs Vital Signs - First Documented 01/02/21 19:12 Temp 36.7 Pulse 94 Resp 18 B/P (MAP) 152/91 (111) Pulse Ox 94 O2 Delivery Room Air Capillary Refill : Less Than 3 Seconds Height, Weight, BMI Height: 5'7.00" Weight: 210lbs. 9.0oz. 95.702897ys; 34.47 BMI Method:Actual General Appearance: No Apparent Distress, Obese Respiratory: Lungs Clear, Normal Breath Sounds, No Respiratory Distress Cardiovascular: Regular Rate, Rhythm, No Edema, No Murmur Gastrointestinal: Normal Bowel Sounds, Non Tender, Soft Extremity: Normal Inspection, No Pedal Edema Neurologic/Psychiatric: Alert, Other (perseverating) Skin: Normal Color, Warm/Dry Results Results/Procedures Labs Laboratory Tests 01/02/21 20:22 Patient resulted labs reviewed. Assessment/Plan Admission Diagnosis Suicidal ideation Admission Status: Observation Assessment and Plan Suicidal ideation Homicidal ideation Schizophrenia Social work consulted Mental health evaluation Medically stable Diagnosis/Problems Diagnosis/Problems (1) Suicidal ideations Status: Acute (2) Schizophrenia Status: Chronic YOSVANY LA MD Jan 03, 2021 13:31
[2021-01-03] MEDS ORDERED: HYDR-3924 PO (13:52)
[2021-01-03] MEDS ORDERED: AMLO2.5T4 PO (13:52)
[2021-01-03] MEDS ORDERED: ASPI-1238 PO (13:52)
[2021-01-03] MEDS ORDERED: FURO20TA4 PO (13:52)
[2021-01-03] MEDS ORDERED: POTA10TA PO (13:52)
[2021-01-03] MEDS ORDERED: LISI40TA9 PO (13:52)
[2021-01-03] MEDS ORDERED: LEVO50TA6 PO (13:52)
[2021-01-04 00:18] VITALS: BP 154/90
[2021-01-04 04:30] VITALS: BP 155/94
[2021-01-04 07:35] VITALS: BP 152/81
[2021-01-04 13:00] VITALS: BP 145/85
--- NOTE | 2021-01-04 14:32 | Progress Note - Hospitalist ---
Subjective HPI/CC On Admission Date Seen by Provider: Jan 04, 2021 Time Seen by Provider: 10:15 Prince Zarate is a 60 year old male with PMH schizophrenia who presented with reported suicidal and homicidal ideations. His ex- picked him up from [facility] yesterday where he had been due to delusions and suicidal ideation. She reported that he had been makind suicidal and homicidal comments. He was also reportedly talking to her about his grandmother and brother as if they were alive, although they are both . Upon arrival, he was not reporting any suicidal or homicidal ideation. On my exam, he is perseverating about his daughter and repeatedly says he wants to let his daughter know he is ok. Subjective/Events-last exam He is in good spirits this morning. He has no complaints or concerns. Objective Exam Vital Signs Vital Signs Date Time Temp Pulse Resp B/P (MAP) Pulse Ox O2 Delivery O2 Flow Rate FiO2 01/04/21 13:00 37.2 63 20 145/85 (105) 96 Room Air Capillary Refill : Less Than 3 Seconds General Appearance: No Apparent Distress, WD/WN Respiratory: Lungs Clear, Normal Breath Sounds, No Respiratory Distress Cardiovascular: Regular Rate, Rhythm, No Edema, No Murmur Gastrointestinal: Normal Bowel Sounds, Non Tender, Soft Extremity: Normal Inspection, Non Tender, No Pedal Edema Neurologic/Psychiatric: Alert, Normal Mood/Affect Skin: Normal Color, Warm/Dry Results/Procedures Lab Patient resulted labs reviewed. Assessment/Plan Assessment and Plan Assess & Plan/Chief Complaint Suicidal ideation Homicidal ideation Schizophrenia Social work consulted Mental health evaluation Medically stable Awaiting placement Diagnosis/Problems Diagnosis/Problems (1) Suicidal ideations Status: Acute (2) Schizophrenia Status: Chronic YOSVANY LA MD Jan 04, 2021 14:32
[2021-01-04 15:27] VITALS: BP 157/89
[2021-01-04 19:12] VITALS: BP 164/94
[2021-01-05] VITALS (8 sets, daily range): BP systolic 122–192; BP diastolic 76–104
[2021-01-05] MEDS ORDERED: hydrALAZINE (APESOLINE) 20 MG/ML VIAL IV PRN (07:45)
[2021-01-05] MEDS: amLODIPine 2.5MG (NORVASC) TAB PO SCH (08:49)
[2021-01-05] MEDS: hydrALAZINE (APRESOLINE) 25 MG TAB PO SCH (08:50)
[2021-01-05] MEDS: FUROSEMIDE 20 MG (LASIX) TAB PO SCH (08:50)
[2021-01-05] MEDS: KCL 10 MEQ TAB (MICRO K) PO SCH (08:50)
[2021-01-05] MEDS: lisINopril 40 MG (PRINIVIL) TABLET PO SCH (08:50)
[2021-01-05] MEDS: LEVOTHYROXINE 50 MCG (LEVOTHROID) TAB PO SCH (08:50)
[2021-01-05] MEDS: ASPIRIN E.C. 81 MG (ECOTRIN) TAB PO SCH (08:50)
[2021-01-05] MEDS: ACETAMINOPHEN 325 MG TABLET PO PRN ×2 (12:46→21:46)
--- NOTE | 2021-01-05 18:49 | Progress Note - Hospitalist ---
Subjective HPI/CC On Admission Date Seen by Provider: Jan 05, 2021 Time Seen by Provider: 10:25 Prince Zarate is a 60 year old male with PMH schizophrenia who presented with reported suicidal and homicidal ideations. His ex- picked him up from [facility] yesterday where he had been due to delusions and suicidal ideation. She reported that he had been makind suicidal and homicidal comments. He was also reportedly talking to her about his grandmother and brother as if they were alive, although they are both . Upon arrival, he was not reporting any suicidal or homicidal ideation. On my exam, he is perseverating about his daughter and repeatedly says he wants to let his daughter know he is ok. Subjective/Events-last exam He is having paranoid delusions. He makes me shut the door and turn off the light to talk to him. He tells me that the police have been after him and there is a conspiracy involving his car being wrecked for insurance money. He tells me that he wants to be [employer], but he had a vasectomy so he doesn't think he can be [employer]. He asks me to pray with him. He talks about his brother who apparently of suicide 35 years ago. He tells me he cried last night because he feels responsible. He denies pain. He denies trouble breathing. He has no medical complaints. Objective Exam Vital Signs Vital Signs Date Time Temp Pulse Resp B/P (MAP) Pulse Ox O2 Delivery O2 Flow Rate FiO2 01/05/21 16:00 36.7 67 18 136/79 (98) 98 Room Air Capillary Refill : Less Than 3 Seconds General Appearance: No Apparent Distress, Obese Respiratory: Lungs Clear, Normal Breath Sounds, No Respiratory Distress Cardiovascular: Regular Rate, Rhythm, No Edema, No Murmur Gastrointestinal: Normal Bowel Sounds, Non Tender, Soft Extremity: Normal Inspection, Non Tender, No Pedal Edema Neurologic/Psychiatric: Alert, Other (paranoid, delusional) Skin: Normal Color, Warm/Dry Results/Procedures Lab Patient resulted labs reviewed. Imaging: Reviewed Imaging Report Assessment/Plan Assessment and Plan Assess & Plan/Chief Complaint Suicidal ideation Homicidal ideation Paranoid delusions Schizophrenia Social work consulted Mental health evaluation Medically stable Awaiting placement Diagnosis/Problems Diagnosis/Problems (1) Suicidal ideations Status: Acute (2) Schizophrenia Status: Chronic Qualifiers: Schizophrenia type: paranoid schizophrenia Qualified Codes: F20.0 - Paranoid schizophrenia YOSVANY LA MD Jan 05, 2021 18:49
[2021-01-05] MEDS: DIVALPROEX EXT RELEASE 500 MG (DEPAKOTE ER) TAB PO SCH (20:31)
[2021-01-06] MEDS: ACETAMINOPHEN 325 MG TABLET PO PRN ×4 (01:59→23:28)
[2021-01-06 03:56] VITALS: BP 147/82
[2021-01-06 08:52] VITALS: BP 146/78
[2021-01-06] MEDS: lisINopril 40 MG (PRINIVIL) TABLET PO SCH (09:55)
[2021-01-06] MEDS: KCL 10 MEQ TAB (MICRO K) PO SCH (09:55)
[2021-01-06] MEDS: LEVOTHYROXINE 50 MCG (LEVOTHROID) TAB PO SCH (09:55)
[2021-01-06] MEDS: FUROSEMIDE 20 MG (LASIX) TAB PO SCH (09:55)
[2021-01-06] MEDS: amLODIPine 2.5MG (NORVASC) TAB PO SCH (09:55)
[2021-01-06] MEDS: hydrALAZINE (APRESOLINE) 25 MG TAB PO SCH (09:55)
[2021-01-06] MEDS: ASPIRIN E.C. 81 MG (ECOTRIN) TAB PO SCH (09:56)
--- NOTE | 2021-01-06 11:19 | Progress Note - Hospitalist ---
Subjective HPI/CC On Admission Date Seen by Provider: Jan 06, 2021 Time Seen by Provider: 11:16 Prince Zarate is a 60 year old male with PMH schizophrenia who presented with reported suicidal and homicidal ideations. His ex- picked him up from [facility] yesterday where he had been due to delusions and suicidal ideation. She reported that he had been makind suicidal and homicidal comments. He was also reportedly talking to her about his grandmother and brother as if they were alive, although they are both . Upon arrival, he was not reporting any suicidal or homicidal ideation. On my exam, he is perseverating about his daughter and repeatedly says he wants to let his daughter know he is ok. Subjective/Events-last exam Pt reports feeling ok today. Hopeful for discharge tomorrow. Asks if he is for sure going to [facility] tomorrow and I informed him that would not be able to be confirmed until tomorrow as it is Labor Day. he aasked if his friend" Priti" will take him and tells me they are very good friends and she is one of [phone] friends he has. We discussed that Sharon is not here today again as it is a holiday but will follow up with her tomorrow. Objective Exam Vital Signs Vital Signs Date Time Temp Pulse Resp B/P (MAP) Pulse Ox O2 Delivery O2 Flow Rate FiO2 01/06/21 08:52 37.0 66 20 146/78 (100) 98 Room Air Capillary Refill : Less Than 3 Seconds General Appearance: No Apparent Distress, Anxious Respiratory: Lungs Clear, No Respiratory Distress Cardiovascular: Regular Rate, Rhythm, No Murmur Neurologic/Psychiatric: Alert, Other (oriented to person and place, tangential/delusional at times) Results/Procedures Lab Patient resulted labs reviewed. Imaging: Reviewed Imaging Report Assessment/Plan Assessment and Plan Assess & Plan/Chief Complaint Suicidal ideation Homicidal ideation Paranoid delusions Schizophrenia Social work consulted, appreciate Sharon's help Mental health evaluation Medically stable Awaiting placement Hopeful to DC to [facility] tomorrow SOCO MAKI MD Jan 06, 2021 11:19
[2021-01-06 12:03] VITALS: BP 126/58
[2021-01-06 15:08] VITALS: BP 137/86
[2021-01-06 19:15] VITALS: BP 126/74
[2021-01-06] MEDS: DIVALPROEX EXT RELEASE 500 MG (DEPAKOTE ER) TAB PO SCH (20:15)
[2021-01-07 00:17] VITALS: BP 151/84
[2021-01-07] MEDS: ACETAMINOPHEN 325 MG TABLET PO PRN (03:51)
[2021-01-07 04:12] VITALS: BP 130/80
[2021-01-07 08:00] VITALS: BP 163/96
[2021-01-07] MEDS: LEVOTHYROXINE 50 MCG (LEVOTHROID) TAB PO SCH (09:08)
[2021-01-07] MEDS: lisINopril 40 MG (PRINIVIL) TABLET PO SCH (09:08)
[2021-01-07] MEDS: KCL 10 MEQ TAB (MICRO K) PO SCH (09:08)
[2021-01-07] MEDS: FUROSEMIDE 20 MG (LASIX) TAB PO SCH (09:08)
[2021-01-07] MEDS: hydrALAZINE (APRESOLINE) 25 MG TAB PO SCH (09:08)
[2021-01-07] MEDS: ASPIRIN E.C. 81 MG (ECOTRIN) TAB PO SCH (09:08)
[2021-01-07] MEDS: amLODIPine 2.5MG (NORVASC) TAB PO SCH (09:08)
--- NOTE | 2021-01-07 09:38 | Discharge Summary ---
Diagnosis/Chief Complaint Date of Admission Jan 02, 2021 at 19:50 Date of Discharge Discharge Date: Jan 07, 2021 Admission Diagnosis Suicidal ideation Primary Care [place] Nye Jose Luis DO Discharge Diagnosis (1) Suicidal ideations Status: Acute (2) Schizophrenia Status: Chronic Discharge Summary Discharge Physical Exam Allergies: Coded Allergies: No Known Drug Allergies (Unverified , 05/15/10) Vitals & I&Os Vital Signs Date Time Temp Pulse Resp B/P (MAP) Pulse Ox O2 Delivery O2 Flow Rate FiO2 01/07/21 12:00 36.2 71 18 163/96 98 Room Air General Appearance: No Apparent Distress Respiratory: Lungs Clear, No Respiratory Distress Cardiovascular: Regular Rate, Rhythm, No Murmur Gastrointestinal: Normal Bowel Sounds, Soft Hospital Course Patient was admitted to the hospital secondary to acute psychosis with homicidal and suicidal ideation. He had just been discharged from [facility] in [place] just before admission. He was deemed medically stable and was screened through [facility] and deemed an appropriate candidate for inpatient admission. He was discharged there for psychiatric evaluation and medication adjustment. Labs (last 24 hrs) Laboratory Tests 01/07/21 09:50: SARS-CoV-2 RNA (RT-PCR) Not Detected 01/07/21 10:42: White Blood Count 6.7, Red Blood Count 4.97, Hemoglobin 14.5, Hematocrit 46, Me an Corpuscular Volume 92, Mean Corpuscular Hemoglobin 29, Mean Corpuscular Hemoglobin Concent 32, Red Cell Distribution Width 14.6H, Platelet Count 229, Mean Platelet Volume 10.2, Sodium Level 138, Potassium Level 4.2, Chloride Level 102, Carbon Dioxide Level 26, Anion Gap 10, Blood Urea Nitrogen 11, Creatinine 0.71, Estimat Glomerular Filtration Rate 113, BUN/Creatinine Ratio 15, Glucose Level 101, Calcium Level 9.4 Patient resulted labs reviewed. Pending Labs Laboratory Tests 01/07/21 09:50: SARS-CoV-2 RNA (RT-PCR) Not Detected 01/07/21 10:42: White Blood Count 6.7, Red Blood Count 4.97, Hemoglobin 14.5, Hematocrit 46, Mean Corpuscular Volume 92, Mean Corpuscular Hemoglobin 29, Mean Corpuscular Hemoglobin Concent 32, Red Cell Distribution Width 14.6, Platelet Count 229, Mean Platelet Volume 10.2, Sodium Level 138, Potassium Level 4.2, Chloride Level 102, Carbon Dioxide Level 26, Anion Gap 10, Blood Urea Nitrogen 11, Creatinine 0.71, Estimat Glomerular Filtration Rate 113, BUN/Creatinine Ratio 15, Glucose Level 101, Calcium Level 9.4 Imaging: Reviewed Imaging Report Discussion & Recommendations Discharge Planning: >30 minutes discharge planning Discharge Home Medications: Active Scripts Active Reported K-Tab ER (Potassium Chloride) 10 Meq Tablet.er 10 Meq PO DAILY Hydralazine HCl 50 Mg Tablet 50 Mg PO DAILY Lisinopril 40 Mg Tablet 40 Mg PO DAILY Levothyroxine Sodium 50 Mcg Tablet 50 Mcg PO DAILY Furosemide 20 Mg Tablet 20 Mg PO DAILY Aspirin EC (Aspirin) 81 Mg Tablet.dr 81 Mg PO DAILY Amlodipine Besylate 2.5 Mg Tablet 2.5 Mg PO DAILY Atorvastatin Calcium 20 Mg Tablet 20 Mg PO HS Aripiprazole 15 Mg Tablet 15 Mg PO DAILY Divalproex Sodium ER (Divalproex Sodium) 500 Mg Tab.er.24h 1,500 Mg PO HS TAKES 3 (500MG) TABS Instructions to patient/family Please see electronic discharge instructions given to patient. Problem Qualifiers (1) Schizophrenia: Schizophrenia type: paranoid schizophrenia Qualified Codes: F20.0 - Paranoid schizophrenia SOCO MAKI MD Jan 07, 2021 09:38
--- NOTE | 2021-01-07 09:41 | Discharge Inst-Simple/Standard ---
Discharge Inst-Standard Patient Instructions/Follow Up Plan of Care/Instructions/FU: Please continue to take your medications as written. Please follow up with your primary care doctor. Activity as Tolerated: Yes Discharge Diet: No Restrictions Return to The Hospital For: Confusion, weakness, chest pain, thoughts of hurting others or self harm, if you feel you are getting worse. SOCO MAKI MD Jan 07, 2021 09:41
[2021-01-07 10:52] LABS: HEMATOCRIT 46 % (40-54); HEMOGLOBIN 14.5 g/dL (13.3-17.7); MEAN CORPUSCULAR HEMOGLOBIN 29 pg (25-34); MEAN CORPUSCULAR HGB CONC 32 g/dL (32-36); MEAN CORPUSCULAR VOLUME 92 fL (80-99); MEAN PLATELET VOLUME 10.2 fL (9.0-12.2); PLATELET COUNT 229 10^3/uL (130-400); WHITE BLOOD COUNT 6.7 10^3/uL (4.3-11.0)
[2021-01-07 11:11] LABS: CALCIUM 9.4 MG/DL (8.5-10.1); CREATININE SERUM 0.71 MG/DL (0.60-1.30); POTASSIUM 4.2 MMOL/L (3.6-5.0)
[2021-01-07 12:00] VITALS: BP 163/96
== END 2021-01-07 12:00 ==
LOC: EDUNIT# 18:57 → ER 19:00 → 4TH 19:50
PROVIDERS: ADMIT Internal Medicine; ATTEND Family Medicine
DX: R45.851 Suicidal ideations (principal); F20.9 Schizophrenia, unspecified; F22 Delusional disorders; R45.850 Homicidal ideations; R41.82 Altered mental status, unspecified; I10 Essential (primary) hypertension; E78.00 Pure hypercholesterolemia, unspecified; G47.30 Sleep apnea, unspecified; K21.9 Gastro-esophageal reflux disease without esophagitis; M19.90 Unspecified osteoarthritis, unspecified site; E03.9 Hypothyroidism, unspecified; F41.9 Anxiety disorder, unspecified; F32.9 Major depressive disorder, single episode, unspecified; Z79.890 Hormone replacement therapy; Z79.899 Other long term (current) drug therapy; Z90.89 Acquired absence of other organs; Z82.3 Family history of stroke
CPT/HCPCS: 80048; 80053; 80164; 80306; 81000; 84443; 85025; 85027; 87636; 93005; 96372; 99283; G0378; G0480 ×3; 36415; 80320; 80329

== ENCOUNTER 2021-01-22 10:19 | Emergency (ER) | payer MEDICARE ==
[~2021-01-22] VITALS: Ht 170 cm; Wt 79.5 kg
[~2021-01-22 10:19] MED LIST changes: +AMLO2.5T4 PO; +ARIP15TA20 PO; +ASPI-1238 PO; +ATOR20TA66 PO; +DIVA500T15 PO; +FURO20TA4 PO; +HYDR-3924 PO; +LISI40TA9 PO; +POTA10TA PO
[2021-01-22] MEDS ORDERED: ALPRAZolam 0.25 MG (XANAX) TAB PO ONE (10:45)
--- NOTE | 2021-01-22 10:46 | ED Psychosocial ---
General Chief Complaint: Psych/Social Disorder Stated Complaint: PSYCH EVAL-SEEING THINGS,DELUSIONAL Source: patient, family Exam Limitations: no limitations History of Present Illness Date Seen by Provider: Jan 22, 2021 Time Seen by Provider: 10:43 Initial Comments Brought to ER by private vehicle accompanied by his ex- with reports of "mental breakdown". This is been ongoing for about 6 weeks after Covid. He has been inpatient at [facility], then here, most recently last week at [facility]. Ex- reports that he was talking to his brother who has been for 28 years last night. She states that typically after a psychiatric admission he will bounce back to normal but is not doing that currently. He lives alone. He plans to commit suicide by taking all of his pills (which his ex- controls). History of schizophrenia. Timing/Duration: constant Severity: moderate Associated Symptoms: suicidal ideation Allergies and Home Medications Allergies Coded Allergies: No Known Drug Allergies (Unverified , 05/15/10) Patient Home Medication List Home Medication List Reviewed: Yes Amlodipine Besylate (Amlodipine Besylate) 2.5 Mg Tablet, 2.5 MG PO DAILY, (Reported) Entered as Reported by: DINORA TA on 01/03/211351 Aripiprazole (Aripiprazole) 15 Mg Tablet, 15 MG PO DAILY, (Reported) Entered as Reported by: RUPERTO SELLERS on 01/02/211930 Aspirin (Aspirin EC) 81 Mg Tablet.dr, 81 MG PO DAILY, (Reported) Entered as Reported by: DINORA TA on 01/03/211351 Atorvastatin Calcium (Atorvastatin Calcium) 20 Mg Tablet, 20 MG PO HS, (Reported) Entered as Reported by: RUPERTO SELLERS on 01/02/211930 Divalproex Sodium (Divalproex Sodium ER) 500 Mg Tab.er.24h, 1,500 MG PO HS, (Reported) Entered as Reported by: RUPERTO SELLERS on 01/02/211930 Furosemide (Furosemide) 20 Mg Tablet, 20 MG PO DAILY, (Reported) Entered as Reported by: DINORA TA on 01/03/211351 Hydralazine HCl (Hydralazine HCl) 50 Mg Tablet, 50 MG PO DAILY, (Reported) Entered as Reported by: DINORA TA on 9/3/21 1352 Levothyroxine Sodium (Levothyroxine Sodium) 50 Mcg Tablet, 50 MCG PO DAILY, (Reported) Entered as Reported by: DINORA TA on 01/03/21 135 Lisinopril (Lisinopril) 40 Mg Tablet, 40 MG PO DAILY, (Reported) Entered as Reported by: DINORA TA on 01/03/21 135 Potassium Chloride (K-Tab ER) 10 Meq Tablet.er, 10 MEQ PO DAILY, (Reported) Entered as Reported by: DINORA TA on 01/03/21 135 Review of Systems Constitutional: see HPI EENTM: see HPI Respiratory: no symptoms reported Cardiovascular: no symptoms reported Genitourinary: no symptoms reported Musculoskeletal: no symptoms reported Skin: no symptoms reported Psychiatric/Neurological: See HPI, Anxiety, Emotional Problems Past Ofilcoz-Xjjacj-Beptxp Hx Immunizations Up To Date Tetanus Booster (TDap): Less than 5yrs Seasonal Allergies Seasonal Allergies: Yes Past Medical History Surgery/Hospitalization HX: HTN, LOW THRYOID, HIGH CHOLESTEROL. Surgeries: Yes Appendectomy Respiratory: Yes Sleep Apnea Currently Using CPAP: Yes Cardiac: Yes Heart Murmur, High Cholesterol, Hypertension Neurological: No Reproductive Disorders: No Genitourinary: No Gastrointestinal: Yes Gastroesophageal Reflux Musculoskeletal: Yes Arthritis Endocrine: Yes Hypothyroidsim Glaucoma Loss of Vision: Denies Hearing Impairment: Denies Cancer: No Psychosocial: Yes (SUICIDAL IDEATIONS; DELUSIONS/HALLUCINATIONS) Anxiety, Schizophrenia, Depression Integumentary: No Blood Disorders: No Adverse Reaction/Blood Tranf: No Family Medical History Heart Disease, Hypertension, Stroke Physical Exam Vital Signs - First Documented 01/22/21 10:26 Temp 36.2 Pulse 68 Resp 18 B/P (MAP) 179/66 (103) Pulse Ox 98 Capillary Refill : Height, Weight, BMI Height: 5'7.00" Weight: 210lbs. 9.0oz. 95.175476cv; 34.47 BMI Method:Actual General Appearance: WD/WN, no apparent distress HEENT: PERRL/EOMI, normal ENT inspection Respiratory: no respiratory distress, no accessory muscle use Cardiovascular: regular rate, rhythm, no murmur Gastrointestinal: normal bowel sounds, non tender, soft Neurologic/Psychiatric: alert, normal mood/affect, oriented x 3 Appearance/Memory: appropriate appearance, appropriate insight, neat Behavior/Eye Contact: cooperative, avoids eye contact Thoughts/Hallucinations: normal thought pattern, no apparent hallucination Skin: normal color, warm/dry Progress/Results/Core Measures Results/Orders Lab Results Laboratory Tests Test 01/22/21 10:36 01/22/21 10:41 01/22/21 10:44 01/22/21 11:06 Range/Units Urine Color YELLOW Urine Clarity CLEAR Urine pH 7.0 5-9 Urine Specific [place] 1.020 1.016-1.022 Urine Protein NEGATIVE NEGATIVE Urine Glucose (UA) NEGATIVE NEGATIVE Urine Ketones NEGATIVE NEGATIVE Urine Nitrite NEGATIVE NEGATIVE Urine Bilirubin NEGATIVE NEGATIVE Urine Urobilinogen 0.2 < = 1.0 MG/DL Urine Leukocyte Esterase 1+ H NEGATIVE Urine RBC (Auto) NEGATIVE NEGATIVE Urine RBC RARE /HPF Urine WBC 5-10 H /HPF Urine Squamous Epithelial Cells 2-5 /HPF Urine Crystals NONE /LPF Urine Bacteria FEW H /HPF Urine Casts NONE /LPF Urine Mucus SMALL H /LPF Urine Culture Indicated YES Urine Opiates Screen NEGATIVE NEGATIVE Urine Oxycodone Screen NEGATIVE NEGATIVE Urine Methadone Screen NEGATIVE NEGATIVE Urine Propoxyphene Screen NEGATIVE NEGATIVE Urine Barbiturates Screen NEGATIVE NEGATIVE Ur Tricyclic Antidepressants Screen NEGATIVE NEGATIVE Urine Phencyclidine Screen NEGATIVE NEGATIVE Urine Amphetamines Screen NEGATIVE NEGATIVE Urine Methamphetamines Screen NEGATIVE NEGATIVE Urine Benzodiazepines Screen POSITIVE H NEGATIVE Urine Cocaine Screen NEGATIVE NEGATIVE Urine Cannabinoids Screen NEGATIVE NEGATIVE White Blood Count 6.7 4.3-11.0 10^3/uL Red Blood Count 4.29 L 4.30-5.52 10^6/uL Hemoglobin 12.8 L 13.3-17.7 g/dL Hematocrit 40 40-54 % Mean Corpuscular Volume 94 80-99 fL Mean Corpuscular Hemoglobin 30 25-34 pg Mean Corpuscular Hemoglobin Concent 32 32-36 g/dL Red Cell Distribution Width 15.5 H 10.0-14.5 % Platelet Count 162 130-400 10^3/uL Mean Platelet Volume 10.6 9.0-12.2 fL Immature Granulocyte % (Auto) 0 % Neutrophils (%) (Auto) 61 42-75 % Lymphocytes (%) (Auto) 22 12-44 % Monocytes (%) (Auto) 14 H 0-12 % Eosinophils (%) (Auto) 3 0-10 % Basophils (%) (Auto) 0 0-10 % Neutrophils # (Auto) 4.1 1.8-7.8 X 10^3 Lymphocytes # (Auto) 1.5 1.0-4.0 X 10^3 Monocytes # (Auto) 1.0 0.0-1.0 X 10^3 Eosinophils # (Auto) 0.2 0.0-0.3 10^3/uL Basophils # (Auto) 0.0 0.0-0.1 10^3/uL Immature Granulocyte # (Auto) 0.0 0.0-0.1 10^3/uL Sodium Level 142 135-145 MMOL/L Potassium Level 3.8 3.6-5.0 MMOL/L Chloride Level 106 98-107 MMOL/L Carbon Dioxide Level 28 21-32 MMOL/L Anion Gap 8 5-14 MMOL/L Blood Urea Nitrogen 9 7-18 MG/DL Creatinine 0.74 0.60-1.30 MG/DL Estimat Glomerular Filtration Rate 108 BUN/Creatinine Ratio 12 Glucose Level 103 70-105 MG/DL Calcium Level 8.9 8.5-10.1 MG/DL Corrected Calcium 9.0 8.5-10.1 MG/DL Total Bilirubin 1.2 H 0.1-1.0 MG/DL Aspartate Amino Transf (AST/SGOT) 19 5-34 U/L Alanine Aminotransferase (ALT/SGPT) 28 0-55 U/L Alkaline Phosphatase 51 40-136 U/L Total Protein 7.1 6.4-8.2 GM/DL Albumin 3.9 3.2-4.5 GM/DL Salicylates Level < 5.0 L 5.0-20.0 MG/DL Acetaminophen Level < 10 L 10-30 UG/ML Serum Alcohol < 10 <10 MG/DL SARS-CoV-2 RNA (RT-PCR) Detected H Not Detecte My Orders Orders - ISABELL MARIN APRN Covid 19 Inhouse Test (01/22/21 10:41) Cbc With Automated Diff (01/22/21 10:41) Comprehensive Metabolic Panel (01/22/21 10:41) Ua Culture If Indicated (01/22/21 10:41) Drug Screen Stat (Urine) (01/22/21 10:41) Alcohol (01/22/21 10:41) Ekg Tracing (01/22/21 10:41) Salicylate (01/22/21 10:41) Acetaminophen (01/22/21 10:41) Alprazolam Tablet (Xanax Tablet) (01/22/21 10:45) Olanzapine Orally Dissolve Tab (Zyprexa (01/22/21 11:00) Urine Culture (01/22/21 10:36) Medications Given in ED Current Medications Medications Dose Ordered Sig/Ankit Route Start Time Stop Time Status Last Admin Dose Admin Olanzapine 5 mg ONCE ONCE PO 01/22/21 11:00 01/22/21 11:01 DC 01/22/21 10:51 5 MG Vital Signs/I&O 01/22/21 10:26 Temp 36.2 Pulse 68 Resp 18 B/P (MAP) 179/66 (103) Pulse Ox 98 Departure Communication (Admissions) EKG shows sinus rhythm rate of 68, there are no ST segment changes or ectopy 1201-his positive Covid test is likely just indicative of his recent Covid infection at the end of October. However, this will likely keep us from getting h im inpatient psych. He he has had 2 inpatient hospitalizations within the past few weeks for mental health. I spoke with Odilon Andrew from [facility], they will do welfare checks on the patient calling today. [facility] and they actually saw him 2 days ago and they will see him again on the at 10:40 AM. 1207-at this time he states that he does feel better. He is appreciative of care and states that he does NOT want to hurt himself when I specifically questioned him about this. Because he feels better on the Zyprexa we will give him a short course of this until he can see Dr. Vaughn at [facility] on Wednesday. I updated his ex- and she would like this rx sent to [facility]. Impression Primary Impression: Suicidal ideations Additional Impression: Schizophrenia Disposition: HOME, SELF-CARE Condition: Stable Departure-Patient Inst. Decision time for Depature: 12:02 Referrals: JUANITA ABBASI DO (PCP/Family) Primary Care Physician Patient Instructions: NO INSTRUCTIONS GIVEN Add. Discharge Instructions: 1. We moved your appointment up to Wednesday the at 10:40 AM at [facility]. [facility] will do phone checks with you a couple of times a day starting today. All discharge instructions reviewed with patient and/or family. Voiced understanding. Scripts Olanzapine (Zyprexa) 5 Mg Tablet 5 MG PO DAILY, #5 TAB Prov: ISABELL MARIN APRN 01/22/21 ISABELL MARIN APRN Jan 22, 2021 10:46
[2021-01-22 10:57] LABS: BASOPHILS % (AUTO) 0 % (0-10); EOSINOPHILS # (AUTO) 0.2 10^3/uL (0.0-0.3); EOSINOPHILS % (AUTO) 3 % (0-10); HEMATOCRIT 40 % (40-54); HEMOGLOBIN 12.8 g/dL (13.3-17.7); LYMPHOCYTES # (AUTO) 1.5 X 10^3 (1.0-4.0); LYMPHOCYTES % (AUTO) 22 % (12-44); MEAN CORPUSCULAR HEMOGLOBIN 30 pg (25-34); MEAN CORPUSCULAR HGB CONC 32 g/dL (32-36); MEAN CORPUSCULAR VOLUME 94 fL (80-99); MEAN PLATELET VOLUME 10.6 fL (9.0-12.2); MONOCYTES % (AUTO) 14 % (0-12); NEUTROPHILS # (AUTO) 4.1 X 10^3 (1.8-7.8); NEUTROPHILS % (AUTO) 61 % (42-75); PLATELET COUNT 162 10^3/uL (130-400); WHITE BLOOD COUNT 6.7 10^3/uL (4.3-11.0)
[2021-01-22] MEDS ORDERED: OLANZapine 5 MG ODT (ZyPREXA ZYDIS) PO ONE (11:00)
[2021-01-22 11:04] LABS: ALBUMIN 3.9 GM/DL (3.2-4.5); CHLORIDE 106 MMOL/L (98-107); POTASSIUM 3.8 MMOL/L (3.6-5.0); SODIUM 142 MMOL/L (135-145)
[2021-01-22 11:06] LABS: CALCIUM 8.9 MG/DL (8.5-10.1)
[2021-01-22 11:07] LABS: GLUCOSE 103 MG/DL (70-105); TOTAL PROTEIN 7.1 GM/DL (6.4-8.2)
[2021-01-22 11:08] LABS: BILIRUBIN,TOTAL 1.2 MG/DL (0.1-1.0); CARBON DIOXIDE 28 MMOL/L (21-32)
[2021-01-22 11:10] LABS: ALKALINE PHOSPHATASE 51 U/L (40-136); CREATININE SERUM 0.74 MG/DL (0.60-1.30); GFR ESTIMATED 108
[2021-01-22 11:12] LABS: BUN/CREATININE RATIO 12
[2021-01-22 11:13] LABS: SALICYLATE < 5.0 MG/DL (5.0-20.0)
[2021-01-22 11:14] LABS: ALANINE AMINOTRANSFERASE 28 U/L (0-55)
[2021-01-22 11:15] LABS: ACETAMINOPHEN < 10 UG/ML (10-30)
[2021-01-22 11:25] LABS: BILIRUBIN,URINE NEGATIVE (NEGATIVE); CLARITY,URINE CLEAR; COLOR,URINE YELLOW; GLUCOSE, URINE (UA) NEGATIVE (NEGATIVE); KETONES,URINE NEGATIVE (NEGATIVE); LEUKOCYTE ESTERASE ,URINE 1+ (NEGATIVE); NITRITE,URINE NEGATIVE (NEGATIVE); PROTEIN,URINE NEGATIVE (NEGATIVE)
[2021-01-22 11:36] LABS: AMPHETAMINE SCREEN, URINE NEGATIVE (NEGATIVE); BARBITURATE SCREEN URINE NEGATIVE (NEGATIVE); BENZODIAZEPINES SCREEN URINE POSITIVE (NEGATIVE); CANNABINOID SCREEN, URINE NEGATIVE (NEGATIVE); COCAINE SCREEN URINE NEGATIVE (NEGATIVE); METHADONE STAT NEGATIVE (NEGATIVE); METHAMPHETAMINE SCREEN URINE S NEGATIVE (NEGATIVE); OPIATE SCREEN URINE NEGATIVE (NEGATIVE); OXYCODONE STAT NEGATIVE (NEGATIVE); PROPOXYPHENE STAT NEGATIVE (NEGATIVE); TRICYCLIC ANTIDEPRESSANTS SCRE NEGATIVE (NEGATIVE)
[2021-01-22 11:39] LABS: BACTERIA,URINE FEW /HPF; RBC,URINE RARE /HPF
[2021-01-22] MEDS ORDERED: OLAN5TAB3 PO (12:13)
[2021-01-22 12:45] VITALS: BP 179/66
== END 2021-01-22 12:47 | disposition home or self-care (01) ==
LOC: EDUNIT# 10:19 → ER 10:21
DX: R45.851 Suicidal ideations (principal); F20.9 Schizophrenia, unspecified; U07.1 COVID-19; G47.30 Sleep apnea, unspecified; I10 Essential (primary) hypertension; E03.9 Hypothyroidism, unspecified; F32.9 Major depressive disorder, single episode, unspecified; F41.9 Anxiety disorder, unspecified; E78.00 Pure hypercholesterolemia, unspecified; Z79.890 Hormone replacement therapy; Z79.82 Long term (current) use of aspirin; Z79.899 Other long term (current) drug therapy
CPT/HCPCS: 80053; 80306; 81000; 85025; 87088; 87636; 93005; 99283; G0480 ×3; 36415; 80320; 80329

== ENCOUNTER 2021-01-23 14:52 | Emergency (ER) | payer MEDICARE ==
[~2021-01-23] VITALS: Ht 168 cm; Wt 86.0 kg
[~2021-01-23 14:52] MED LIST changes: +OLAN5TAB3 PO
--- NOTE | 2021-01-23 15:11 | ED Psychosocial ---
General Stated Complaint: PSYCH EVAL- DELUSIONAL Source: patient Exam Limitations: no limitations History of Present Illness Date Seen by Provider: Jan 23, 2021 Time Seen by Provider: 15:09 Initial Comments To ER with c/o visual hallucinations ongoing and suicidal thoughts. No specific plan. Lives alone cared for by his ex- on an as needed basis. Plans to jump out of an upper story window at home. I saw him here yesterday for hallucinations and suicidal and anxiety. Gave him Zyprexa and he was feeling better so we discharged home with an outpatient plan. He has been calling his ex- a lot today, she went to check on him and he told her he was going to jump out of the window to kill himself. He states that the symptoms have been worse since having Covid about 8 weeks ago. Timing/Duration: constant Severity: moderate Associated Symptoms: anxiety, suicidal ideation Allergies and Home Medications Allergies Coded Allergies: No Known Drug Allergies (Unverified , 05/15/10) Patient Home Medication List Home Medication List Reviewed: Yes Amlodipine Besylate (Amlodipine Besylate) 2.5 Mg Tablet, 2.5 MG PO DAILY, (Reported) Entered as Reported by: DINORA TA on 01/03/211351 Aripiprazole (Aripiprazole) 15 Mg Tablet, 15 MG PO DAILY, (Reported) Entered as Reported by: RUPERTO SELLERS on 01/02/211930 Aspirin (Aspirin EC) 81 Mg Tablet.dr, 81 MG PO DAILY, (Reported) Entered as Reported by: DINORA TA on 01/03/211351 Atorvastatin Calcium (Atorvastatin Calcium) 20 Mg Tablet, 20 MG PO HS, (Reported) Entered as Reported by: RUPERTO SELLERS on 01/02/211930 Divalproex Sodium (Divalproex Sodium ER) 500 Mg Tab.er.24h, 1,500 MG PO HS, (Reported) Entered as Reported by: RUPERTO SELLERS on 01/02/211930 Furosemide (Furosemide) 20 Mg Tablet, 20 MG PO DAILY, (Reported) Entered as Reported by: DINORA TA on 01/03/211351 Hydralazine HCl (Hydralazine HCl) 50 Mg Tablet, 50 MG PO DAILY, (Reported) Entered as Reported by: DINORA TA on 01/03/211351 Levothyroxine Sodium (Levothyroxine Sodium) 50 Mcg Tablet, 50 MCG PO DAILY, (Reported) Entered as Reported by: DINORA TA on 01/03/21 1352 Lisinopril (Lisinopril) 40 Mg Tablet, 40 MG PO DAILY, (Reported) Entered as Reported by: DINORA TA on 01/03/21 1352 Olanzapine (Zyprexa) 5 Mg Tablet, 5 MG PO DAILY Prescribed by: ISABELL MARIN on 01/22/21 1213 Potassium Chloride (K-Tab ER) 10 Meq Tablet.er, 10 MEQ PO DAILY, (Reported) Entered as Reported by: DINORA TA on 01/03/21 1352 Review of Systems Constitutional: see HPI EENTM: see HPI Respiratory: no symptoms reported Cardiovascular: no symptoms reported Genitourinary: no symptoms reported Musculoskeletal: no symptoms reported Skin: no symptoms reported Psychiatric/Neurological: See HPI, Anxiety Past Vhamrla-Titrkp-Cuuwit Hx Immunizations Up To Date Tetanus Booster (TDap): Less than 5yrs First/Initial COVID19 Vaccinat: UNKNOW DATE Second COVID19 Vaccination Ray: UNKNOW DATE Seasonal Allergies Seasonal Allergies: Yes Past Medical History Surgery/Hospitalization HX: HTN, LOW THRYOID, HIGH CHOLESTEROL. Surgeries: Yes Appendectomy Respiratory: Yes Sleep Apnea Currently Using CPAP: Yes Cardiac: Yes Heart Murmur, High Cholesterol, Hypertension Neurological: No Reproductive Disorders: No Genitourinary: No Gastrointestinal: Yes Gastroesophageal Reflux Musculoskeletal: Yes Arthritis Endocrine: Yes Hypothyroidsim Glaucoma Loss of Vision: Denies Hearing Impairment: Denies Cancer: No Psychosocial: Yes (SUICIDAL IDEATIONS; DELUSIONS/HALLUCINATIONS) Anxiety, Schizophrenia, Depression Integumentary: No Blood Disorders: No Adverse Reaction/Blood Tranf: No Family Medical History Heart Disease, Hypertension, Stroke Physical Exam Vital Signs - First Documented 01/23/21 14:57 Temp 36.6 Pulse 88 Resp 18 B/P (MAP) 187/109 (135) Pulse Ox 98 O2 Delivery Room Air Capillary Refill : Height, Weight, BMI Height: 5'7.00" Weight: 210lbs. 9.0oz. 95.601698ta; 27.00 BMI Method:Actual General Appearance: WD/WN, no apparent distress HEENT: PERRL/EOMI, normal ENT inspection Respiratory: no respiratory distress, no accessory muscle use Cardiovascular: regular rate, rhythm, no murmur Gastrointestinal: normal bowel sounds, non tender, soft Neurologic/Psychiatric: alert, normal mood/affect, oriented x 3 Appearance/Memory: appropriate appearance, appropriate insight, neat Behavior/Eye Contact: cooperative, good eye contact Thoughts/Hallucinations: normal thought pattern, other (alert, oriented, cooperative. Anxious appearing. ) Skin: normal color, warm/dry Progress/Results/Core Measures Results/Orders Lab Results Laboratory Tests Test 01/23/21 15:04 01/23/21 15:05 01/23/21 15:26 01/23/21 15:51 Range/Units White Blood Count 7.8 4.3-11.0 10^3/uL Red Blood Count 4.60 4.30-5.52 10^6/uL Hemoglobin 13.8 13.3-17.7 g/dL Hematocrit 43 40-54 % Mean Corpuscular Volume 93 80-99 fL Mean Corpuscular Hemoglobin 30 25-34 pg Mean Corpuscular Hemoglobin Concent 32 32-36 g/dL Red Cell Distribution Width 15.2 H 10.0-14.5 % Platelet Count 160 130-400 10^3/uL Mean Platelet Volume 10.0 9.0-12.2 fL Immature Granulocyte % (Auto) 0 % Neutrophils (%) (Auto) 66 42-75 % Lymphocytes (%) (Auto) 19 12-44 % Monocytes (%) (Auto) 12 0-12 % Eosinophils (%) (Auto) 2 0-10 % Basophils (%) (Auto) 0 0-10 % Neutrophils # (Auto) 5.1 1.8-7.8 10^3/uL Lymphocytes # (Auto) 1.5 1.0-4.0 10^3/uL Monocytes # (Auto) 0.9 0.0-1.0 10^3/uL Eosinophils # (Auto) 0.2 0.0-0.3 10^3/uL Basophils # (Auto) 0.0 0.0-0.1 10^3/uL Immature Granulocyte # (Auto) 0.0 0.0-0.1 10^3/uL Sodium Level 141 135-145 MMOL/L Potassium Level 3.6 3.6-5.0 MMOL/L Chloride Level 104 98-107 MMOL/L Carbon Dioxide Level 28 21-32 MMOL/L Anion Gap 9 5-14 MMOL/L Blood Urea Nitrogen 9 7-18 MG/DL Creatinine 0.78 0.60-1.30 MG/DL Estimat Glomerular Filtration Rate 102 BUN/Creatinine Ratio 12 Glucose Level 91 70-105 MG/DL Calcium Level 9.1 8.5-10.1 MG/DL Corrected Calcium 9.1 8.5-10.1 MG/DL Total Bilirubin 1.8 H 0.1-1.0 MG/DL Aspartate Amino Transf (AST/SGOT) 19 5-34 U/L Alanine Aminotransferase (ALT/SGPT) 29 0-55 U/L Alkaline Phosphatase 48 40-136 U/L Total Protein 7.3 6.4-8.2 GM/DL Albumin 4.0 3.2-4.5 GM/DL Salicylates Level < 5.0 L 5.0-20.0 MG/DL Serum Alcohol < 10 <10 MG/DL SARS-CoV-2 RNA (RT-PCR) Not Detected Not Detecte Acetaminophen Level < 10 L 10-30 UG/ML Urine Color YELLOW Urine Clarity CLEAR Urine pH 7.0 5-9 Urine Specific [place] 1.010 L 1.016-1.022 Urine Protein NEGATIVE NEGATIVE Urine Glucose (UA) NEGATIVE NEGATIVE Urine Ketones NEGATIVE NEGATIVE Urine Nitrite NEGATIVE NEGATIVE Urine Bilirubin NEGATIVE NEGATIVE Urine Urobilinogen 0.2 < = 1.0 MG/DL Urine Leukocyte Esterase TRACE H NEGATIVE Urine RBC (Auto) NEGATIVE NEGATIVE Urine RBC NONE /HPF Urine WBC 2-5 /HPF Urine Crystals NONE /LPF Urine Bacteria NEGATIVE /HPF Urine Casts NONE /LPF Urine Mucus NEGATIVE /LPF Urine Culture Indicated NO Urine Opiates Screen NEGATIVE NEGATIVE Urine Oxycodone Screen NEGATIVE NEGATIVE Urine Methadone Screen NEGATIVE NEGATIVE Urine Propoxyphene Screen NEGATIVE NEGATIVE Urine Barbiturates Screen NEGATIVE NEGATIVE Ur Tricyclic Antidepressants Screen NEGATIVE NEGATIVE Urine Phencyclidine Screen NEGATIVE NEGATIVE Urine Amphetamines Screen NEGATIVE NEGATIVE Urine Methamphetamines Screen NEGATIVE NEGATIVE Urine Benzodiazepines Screen POSITIVE H NEGATIVE Urine Cocaine Screen NEGATIVE NEGATIVE Urine Cannabinoids Screen NEGATIVE NEGATIVE My Orders Orders - ISABELL MARIN APRN Cbc With Automated Diff (01/23/21 14:58) Comprehensive Metabolic Panel (01/23/21 14:58) Salicylate (01/23/21 14:58) Alcohol (01/23/21 14:58) Ua Culture If Indicated (01/23/21 14:58) Drug Screen Stat (Urine) (01/23/21 14:58) Ekg Tracing (01/23/21 14:58) Covid 19 Inhouse Test (01/23/21 14:58) Acetaminophen (01/23/21 15:26) Clonidine Tablet (Catapres Tablet) (01/23/21 16:30) Vital Signs/I&O 01/23/21 14:57 Temp 36.6 Pulse 88 Resp 18 B/P (MAP) 187/109 (135) Pulse Ox 98 O2 Delivery Room Air Departure Communication (Admissions) Patient is medically cleared for psychiatric admittance Impression Primary Impression: Suicidal ideations Disposition: HOME, SELF-CARE Condition: Stable Departure-Patient Inst. Referrals: JUANITA ABBASI DO (PCP/Family) Primary Care Physician ISABELL MARIN INTERNAL MEDICINE HOSPITALIST Jan 23, 2021 15:11
[2021-01-23 15:13] LABS: BASOPHILS % (AUTO) 0 % (0-10); EOSINOPHILS # (AUTO) 0.2 10^3/uL (0.0-0.3); EOSINOPHILS % (AUTO) 2 % (0-10); HEMATOCRIT 43 % (40-54); HEMOGLOBIN 13.8 g/dL (13.3-17.7); LYMPHOCYTES # (AUTO) 1.5 10^3/uL (1.0-4.0); LYMPHOCYTES % (AUTO) 19 % (12-44); MEAN CORPUSCULAR HEMOGLOBIN 30 pg (25-34); MEAN CORPUSCULAR HGB CONC 32 g/dL (32-36); MEAN CORPUSCULAR VOLUME 93 fL (80-99); MONOCYTES # (AUTO) 0.9 10^3/uL (0.0-1.0); MONOCYTES % (AUTO) 12 % (0-12); NEUTROPHILS # (AUTO) 5.1 10^3/uL (1.8-7.8); NEUTROPHILS % (AUTO) 66 % (42-75); PLATELET COUNT 160 10^3/uL (130-400); WHITE BLOOD COUNT 7.8 10^3/uL (4.3-11.0)
[2021-01-23 15:25] LABS: CHLORIDE 104 MMOL/L (98-107); POTASSIUM 3.6 MMOL/L (3.6-5.0); SODIUM 141 MMOL/L (135-145)
[2021-01-23 15:26] LABS: CALCIUM 9.1 MG/DL (8.5-10.1)
[2021-01-23 15:27] LABS: GLUCOSE 91 MG/DL (70-105); TOTAL PROTEIN 7.3 GM/DL (6.4-8.2)
[2021-01-23 15:28] LABS: CARBON DIOXIDE 28 MMOL/L (21-32)
[2021-01-23 15:29] LABS: BILIRUBIN,TOTAL 1.8 MG/DL (0.1-1.0)
[2021-01-23 15:31] LABS: ALKALINE PHOSPHATASE 48 U/L (40-136); CREATININE SERUM 0.78 MG/DL (0.60-1.30); GFR ESTIMATED 102
[2021-01-23 15:32] LABS: BUN/CREATININE RATIO 12
[2021-01-23 15:34] LABS: ALANINE AMINOTRANSFERASE 29 U/L (0-55); SALICYLATE < 5.0 MG/DL (5.0-20.0)
[2021-01-23 15:56] LABS: BILIRUBIN,URINE NEGATIVE (NEGATIVE); CLARITY,URINE CLEAR; COLOR,URINE YELLOW; GLUCOSE, URINE (UA) NEGATIVE (NEGATIVE); KETONES,URINE NEGATIVE (NEGATIVE); LEUKOCYTE ESTERASE ,URINE TRACE (NEGATIVE); NITRITE,URINE NEGATIVE (NEGATIVE); PROTEIN,URINE NEGATIVE (NEGATIVE)
[2021-01-23 16:06] LABS: BACTERIA,URINE NEGATIVE /HPF
[2021-01-23 16:15] LABS: AMPHETAMINE SCREEN, URINE NEGATIVE (NEGATIVE); BARBITURATE SCREEN URINE NEGATIVE (NEGATIVE); BENZODIAZEPINES SCREEN URINE POSITIVE (NEGATIVE); CANNABINOID SCREEN, URINE NEGATIVE (NEGATIVE); COCAINE SCREEN URINE NEGATIVE (NEGATIVE); METHADONE STAT NEGATIVE (NEGATIVE); METHAMPHETAMINE SCREEN URINE S NEGATIVE (NEGATIVE); OPIATE SCREEN URINE NEGATIVE (NEGATIVE); OXYCODONE STAT NEGATIVE (NEGATIVE); PROPOXYPHENE STAT NEGATIVE (NEGATIVE); TRICYCLIC ANTIDEPRESSANTS SCRE NEGATIVE (NEGATIVE)
[2021-01-23] MEDS ORDERED: cloNIDine 0.1 MG (CATAPRES) TAB PO ONE (16:30)
[2021-01-23] MEDS ORDERED: HYDROCORTISONE 1% CREAM 30 GM TUBE TOP SCH (21:00)
[2021-01-23] MEDS ORDERED: lisINopril 20 MG (PRINIVIL) TABLET PO ONE (22:45)
[2021-01-24] MEDS ORDERED: OLANZapine 5 MG ODT (ZyPREXA ZYDIS) PO ONE (07:15)
[2021-01-24] MEDS ORDERED: lisINopril 20 MG (PRINIVIL) TABLET PO ONE (08:45)
[2021-01-24] MEDS ORDERED: amLODIPine 2.5MG (NORVASC) TAB PO ONE (08:45)
[2021-01-24] MEDS ORDERED: FUROSEMIDE 20 MG (LASIX) TAB PO ONE (08:45)
[2021-01-24] MEDS ORDERED: LEVOTHYROXINE 50 MCG (LEVOTHROID) TAB PO ONE (08:45)
[2021-01-24] MEDS ORDERED: lisINopril 40 MG (PRINIVIL) TABLET PO ONE (09:30)
[2021-01-24 10:41] VITALS: BP 159/91
== END 2021-01-24 10:30 | disposition home or self-care (01) ==
LOC: EDUNIT# 14:52 → ER 14:53
DX: R45.851 Suicidal ideations (principal); G47.30 Sleep apnea, unspecified; I10 Essential (primary) hypertension; E03.9 Hypothyroidism, unspecified; F20.9 Schizophrenia, unspecified; E78.00 Pure hypercholesterolemia, unspecified; Z20.822 Contact with and (suspected) exposure to COVID-19; Z79.82 Long term (current) use of aspirin; Z79.890 Hormone replacement therapy; Z79.899 Other long term (current) drug therapy
CPT/HCPCS: 80053; 80164; 80306; 81000; 85025; 87636; 93005; 99283; G0480 ×3; 36415; 80320; 80329

== ENCOUNTER 2021-02-19 16:55 | Emergency (ER) | payer MEDICARE ==
[~2021-02-19] VITALS: Ht 170 cm; Wt 95.4 kg
[2021-02-19] MEDS: ALPRAZolam 0.5 MG (XANAX) TAB PO SCH ×3 (17:10→18:18)
--- NOTE | 2021-02-19 17:12 | ED Psychosocial ---
General Chief Complaint: Psych/Social Disorder Stated Complaint: PSYCH EVALUATION Source: patient Exam Limitations: no limitations (ISABELL MARIN APRN) History of Present Illness Date Seen by Provider: Feb 19, 2021 Time Seen by Provider: 17:10 Initial Comments To ER by EMS from home with reports of "PTSD flareup". He does not mention suicidal or homicidal thoughts. He states that he feels anxious. Timing/Duration: constant Severity: moderate Associated Symptoms: anxiety (SIABELL MARIN APRN) Allergies and Home Medications Allergies Coded Allergies: No Known Drug Allergies (Unverified , 05/15/10) Patient Home Medication List Home Medication List Reviewed: Yes (ISABELL MARIN APRN) Amlodipine Besylate (Amlodipine Besylate) 2.5 Mg Tablet, 2.5 MG PO DAILY, (Reported) Entered as Reported by: DINORA TA on 01/03/211351 Aripiprazole (Aripiprazole) 15 Mg Tablet, 15 MG PO DAILY, (Reported) Entered as Reported by: RUPERTO SELLERS on 01/02/211930 Aspirin (Aspirin EC) 81 Mg Tablet.dr, 81 MG PO DAILY, (Reported) Entered as Reported by: DINORA TA on 01/03/211351 Atorvastatin Calcium (Atorvastatin Calcium) 20 Mg Tablet, 20 MG PO HS, (Reported) Entered as Reported by: RUPERTO SELLERS on 01/02/211930 Divalproex Sodium (Divalproex Sodium ER) 500 Mg Tab.er.24h, 1,500 MG PO HS, (Reported) Entered as Reported by: RUPERTO SELLERS on 01/02/211930 Furosemide (Furosemide) 20 Mg Tablet, 20 MG PO DAILY, (Reported) Entered as Reported by: DINORA TA on 01/03/211351 Hydralazine HCl (Hydralazine HCl) 50 Mg Tablet, 50 MG PO DAILY, (Reported) Entered as Reported by: DINORA TA on 01/03/211351 Levothyroxine Sodium (Levothyroxine Sodium) 50 Mcg Tablet, 50 MCG PO DAILY, (Reported) Entered as Reported by: DINORA TA on 01/03/211351 Lisinopril (Lisinopril) 40 Mg Tablet, 40 MG PO DAILY, (Reported) Entered as Reported by: DINORA TA on 9/3/21 1352 Olanzapine (Zyprexa) 5 Mg Tablet, 5 MG PO DAILY Prescribed by: ISABELL MARIN on 01/22/21 1213 Potassium Chloride (K-Tab ER) 10 Meq Tablet.er, 10 MEQ PO DAILY, (Reported) Entered as Reported by: DINORA TA on 01/03/21 1352 Review of Systems Constitutional: see HPI EENTM: see HPI Cardiovascular: no symptoms reported Genitourinary: no symptoms reported Musculoskeletal: no symptoms reported Skin: no symptoms reported Psychiatric/Neurological: No Symptoms Reported (ISABELL MARIN APRN) Past Fubcbaj-Omqdii-Kqlkhf Hx Immunizations Up To Date Tetanus Booster (TDap): Less than 5yrs First/Initial COVID19 Vaccinat: UNKNOW DATE Second COVID19 Vaccination Ray: UNKNOW DATE (ISABELL MARIN APRN) Seasonal Allergies Seasonal Allergies: Yes (ISABELL MARIN APRN) Past Medical History Surgery/Hospitalization HX: HTN, LOW THRYOID, HIGH CHOLESTEROL. Surgeries: Yes Appendectomy Respiratory: Yes Sleep Apnea Currently Using CPAP: Yes Cardiac: Yes Heart Murmur, High Cholesterol, Hypertension Neurological: No Reproductive Disorders: No Genitourinary: No Gastrointestinal: Yes Gastroesophageal Reflux Musculoskeletal: Yes Arthritis Endocrine: Yes Hypothyroidsim Glaucoma Loss of Vision: Denies Hearing Impairment: Denies Cancer: No Psychosocial: Yes (SUICIDAL IDEATIONS; DELUSIONS/HALLUCINATIONS) Anxiety, Schizophrenia, Depression Integumentary: No Blood Disorders: No Adverse Reaction/Blood Tranf: No (ISABELL MARIN APRN) Family Medical History Heart Disease, Hypertension, Stroke (ISABELL MARIN APRN) Physical Exam Vital Signs - First Documented 02/19/21 17:04 Temp 37.0 Pulse 89 Resp 18 B/P (MAP) 154/91 (112) Pulse Ox 97 O2 Delivery Room Air (KYLER GUILLEN MD) Capillary Refill : (ISABELL MARIN APRN) Height, Weight, BMI Height: 5'7.00" Weight: 210lbs. 9.0oz. 95.378126lq; 30.00 BMI Method:Actual General Appearance: WD/WN, no apparent distress Neck: non-tender, full range of motion Respiratory: no respiratory distress, no accessory muscle use Cardiovascular: regular rate, rhythm, no murmur Gastrointestinal: normal bowel sounds, non tender, soft Neurologic/Psychiatric: alert, normal mood/affect, oriented x 3 Appearance/Memory: appropriate appearance, appropriate insight Behavior/Eye Contact: cooperative, good eye contact, normal speech Thoughts/Hallucinations: normal thought pattern, no apparent hallucination Skin: normal color, warm/dry (ISABELL MARIN APRN) Progress/Results/Core Measures Results/Orders Vital Signs/I&O 02/19/21 19:04 Temp 36.5 Pulse 69 Resp 16 B/P (MAP) 120/71 Pulse Ox 99 O2 Delivery Room Air (KYLER GUILLEN MD) Departure Communication (Admissions) Very jovial happy to be here, laughing and joking with us. No hallucinations. Cooperative pleasant. I am under the impression that he is lonely at home as he greatly enjoys social interaction. 1855-discussed with his ex- Odalys who provides care for him. She confirms that he has not kicked out of his apartment as he stated. They are trying to get him placed into a facility as he is unable to take care of himself. He did wish to receive the Covid vaccine here so we gave that. The is concerned because she is convinced that the monoclonal antibody infusion that he received during Covid is what caused his deterioration in mental health. (ISABELL MARIN APRN) Impression Primary Impression: Loneliness Additional Impression: History of schizophrenia Disposition: 01 HOME, SELF-CARE Condition: Improved Departure-Patient Inst. Referrals: JUANITA ABBASI DO (PCP/Family) Primary Care Physician ATTENDING PHYSICIAN NOTE: I was physically present as attending physician in the emergency department during the care of this patient, but I was not directly involved in the decision making or delivery of care for this patient. (KYLER GUILLEN MD) ISABELL MARIN APRN Feb 19, 2021 17:12 KYLER GUILLEN MD Feb 20, 2021 06:17
[2021-02-19] MEDS ORDERED: COVID-19 VACC, MRNA(PFIZER)/PF 30 MCG/0.3 ML VIAL IM ONE (17:15)
[2021-02-19] MEDS ORDERED: ALPRAZolam 0.5 MG (XANAX) TAB PO SCH (18:00)
[2021-02-19 19:04] VITALS: BP 120/71
== END 2021-02-19 19:07 | disposition home or self-care (01) ==
LOC: EDUNIT# 16:55 → ER 16:59
DX: Z60.2 Problems related to living alone (principal); G47.30 Sleep apnea, unspecified; I10 Essential (primary) hypertension; E78.00 Pure hypercholesterolemia, unspecified; F20.9 Schizophrenia, unspecified; E03.9 Hypothyroidism, unspecified; F41.9 Anxiety disorder, unspecified; Z23 Encounter for immunization; Z79.82 Long term (current) use of aspirin; Z79.899 Other long term (current) drug therapy; Z79.890 Hormone replacement therapy
CPT/HCPCS: 91300; 99283

== ENCOUNTER → 2021-02-26 | Outpatient (CLI) | payer MEDICARE | LOC: CARD 09:00 | PROVIDERS: ATTEND Pediatrics | DX: I50.9 Heart failure, unspecified (principal) | CPT/HCPCS: 93306 ==

== ENCOUNTER 2021-03-03 19:27 | Observation (INO) | payer MEDICARE ==
[~2021-03-03] VITALS: Ht 170.2 cm; Wt 108.9 kg
--- NOTE | 2021-03-03 19:47 | ED General ---
General Stated Complaint: AUDITORY HALLUCINATIONS/BODY SWELLING Source of Information: Patient (LIMITED HISTORIAN), Old Records, Other (EX ) History of Present Illness Date Seen by Provider: Mar 03, 2021 Time Seen by Provider: 19:40 Initial Comments PT ARRIVES VIA POV FROM HOME--PT LIVES ALONE AMBULATES IN WITH [facility] CALLED EARLY THIS AFTERNOON AND SPOKE WITH ER STAFF, PT'S EX- ( WHO IS HIS LEAD EMBEDDED SOFTWARE ENGINEER-- X 12 YEARS) WANTS HIM PLACED IN [facility]--SHE STATES HE CAN'T TAKE CARE OF HIMSELF ANYMORE SHE STATES HE FREQUENTLY FORGETS TO TAKE HIS MEDICATION, "AND ALL HE DOES IS SIT AROUND ALL DAY AND EAT AND EAT AND EAT" PT HAS TAKEN MORNING MEDS, BUT NOT EVENING MEDS NO RECENT MEDICATION CHANGES PT WITH LONGSTANDING SCHIZOPHRENIA WITH HALLUCINATIONS, PASSIVE SUICIDAL IDEATIONS IN PAST STATES HE IS HEARING CRICKETS AND VOICES--CHRONIC PROBLEM NO CURRENT SUICIDAL IDEATIONS/GESTURES EX- REPORTS PT HAS BEEN HAVING AUDITORY HALLUCINATIONS --AGAIN IS A CHRONIC PROBLEM FOR YEARS, AND NO DIFFERENT TODAY SHE ALSO REPORTS BODY SWELLING--UNKNOWN LENGTH OF TIME NO CHEST PAIN NO SHORTNESS OF BREATH NO PAIN ANYWHERE NO FEVER OR RECENT ILLNESS PT HAD FIRST COVID-19 VACCINE 11/18/20, TESTED + FOR COVID-19 ON 11/19/20, AND HAD ANTIBODY INFUSION 11/29/20 HAD SECOND COVID-19 VACCINE ON 02/19/21 AT HIS LAST ER VISIT--WAS HERE FOR LONELINESS PT WITH MULTIPLE VISITS FOR VARIOUS COMPLAINTS--MANY PSYCH-RELATED PCP: DR. MARTIN/[facility] Allergies and Home Medications Allergies Coded Allergies: No Known Drug Allergies (Unverified , 05/15/10) Patient Home Medication List Home Medication List Reviewed: Yes Amlodipine Besylate (Amlodipine Besylate) 2.5 Mg Tablet, 2.5 MG PO DAILY, (Reported) Entered as Reported by: DINORA TA on 01/03/21 135 Aripiprazole (Aripiprazole) 15 Mg Tablet, 15 MG PO DAILY, (Reported) Entered as Reported by: RUPERTO SELLERS on 01/02/21 193 Aspirin (Aspirin EC) 81 Mg Tablet.dr 81 MG PO DAILY, (Reported) Entered as Reported by: DINORA TA on 01/03/21 1352 Atorvastatin Calcium (Atorvastatin Calcium) 20 Mg Tablet, 20 MG PO HS, (Reported) Entered as Reported by: RUPERTO SELLERS on 01/02/211930 Divalproex Sodium (Divalproex Sodium ER) 500 Mg Tab.er.24h, 1,500 MG PO HS, (Reported) Entered as Reported by: RUPERTO SELLERS on 01/02/211930 Furosemide (Furosemide) 20 Mg Tablet, 20 MG PO DAILY, (Reported) Entered as Reported by: DINORA TA on 01/03/21 135 Hydralazine HCl (Hydralazine HCl) 50 Mg Tablet, 50 MG PO DAILY, (Reported) Entered as Reported by: DINORA TA on 01/03/211351 Levothyroxine Sodium (Levothyroxine Sodium) 50 Mcg Tablet, 50 MCG PO DAILY, (Reported) Entered as Reported by: DINORA TA on 01/03/21 135 Lisinopril (Lisinopril) 40 Mg Tablet, 40 MG PO DAILY, (Reported) Entered as Reported by: DINORA TA on 01/03/21 135 Olanzapine (Zyprexa) 5 Mg Tablet, 5 MG PO DAILY Prescribed by: ISABELL MARIN on 01/22/21 1213 Potassium Chloride (K-Tab ER) 10 Meq Tablet.er, 10 MEQ PO DAILY, (Reported) Entered as Reported by: DINORA TA on 01/03/21 135 Review of Systems Review of Systems Constitutional: no symptoms reported EENTM: no symptoms reported Respiratory: no symptoms reported Cardiovascular: No chest pain; edema; No palpitations, No syncope Gastrointestinal: no symptoms reported Genitourinary: no symptoms reported Musculoskeletal: no symptoms reported Skin: no symptoms reported Psychiatric/Neurological: See HPI Hematologic/Lymphatic: No Symptoms Reported Immunological/Allergic: no symptoms reported Past Oeamgkn-Ubfxzn-Uufdzp Hx Patient Social History Tobacco Use?: No Substance use?: No Alcohol Use?: No Immunizations Up To Date Tetanus Booster (TDap): Less than 5yrs First/Initial COVID19 Vaccinat: UNKNOW DATE Second COVID19 Vaccination Ray: UNKNOW DATE Third COVID19 Vaccination Date: UNKNOW DATE Seasonal Allergies Seasonal Allergies: Yes Past Medical History Surgery/Hospitalization HX: HTN, LOW THRYOID, HIGH CHOLESTEROL. Surgeries: Yes Appendectomy Respiratory: Yes Sleep Apnea Currently Using CPAP: Yes Cardiac: Yes Heart Murmur, High Cholesterol, Hypertension Neurological: Yes (? MR ? ) Reproductive Disorders: No Genitourinary: No Gastrointestinal: Yes Gastroesophageal Reflux Musculoskeletal: Yes Arthritis Endocrine: Yes Hypothyroidsim HEENT: Yes Glaucoma Loss of Vision: Denies Hearing Impairment: Denies Cancer: No Psychosocial: Yes (SUICIDAL IDEATIONS; DELUSIONS/HALLUCINATIONS; ? MR ? ) Anxiety, Schizophrenia, Depression Integumentary: No Blood Disorders: No Adverse Reaction/Blood Tranf: No Family Medical History Heart Disease, Hypertension, Stroke HAD COVID-19 IN OCTOBER 2020--RECEIVED REGENERON INFUSION, NO HOSPITALIZATION, NO COMPLICATIONS Physical Exam Vital Signs Vital Signs - First Documented 03/03/21 19:40 Temp 36.7 Pulse 81 Resp 18 B/P (MAP) 171/100 (123) Pulse Ox 96 O2 Delivery Room Air Capillary Refill : Height, Weight, BMI Height: 5'7.00" Weight: 210lbs. 9.0oz. 95.502626wl; 33.00 BMI Method:Actual General Appearance: No Apparent Distress, WD/WN, Obese, Other (DOES NOT APPEAR TO BE ILL OR IN ANY DISCOMFORT OR DISTRESS; SMILING, TALKATIVE) HEENT: PERRL/EOMI, Other (POOR DENTITION / MULTIPLE MISSING TEETH) Neck: Normal Inspection Respiratory: Normal Breath Sounds, No Accessory Muscle Use, No Respiratory Distress Cardiovascular: Regular Rate, Rhythm, No Murmur Gastrointestinal: Non Tender, Soft, Other Back: No CVA Tenderness Extremity: Normal Capillary Refill, Non Tender, No Calf Tenderness, Pedal Edema (2+ BILATERALLY) Neurologic/Psychiatric: Alert, Oriented x3 (BUT POOR MEMORY), No Motor/Sensory Deficits, Normal Mood/Affect, special services supervisor II-XII Norm as Tested, Other (NO APPARENT HALLUCINATIONS AT THIS TIME. NO SUICIDAL / HOMICIDAL IDEATIONS; SPEECH IMPEDIMENT, APPEARS TO BE MENTALLY CHALLENGED/VERY IMMATURE) Skin: Normal Color, Warm/Dry Progress/Results/Core Measures Suspected Sepsis SIRS Temperature: Pulse: Respiratory Rate: Laboratory Tests 03/03/21 19:50: White Blood Count 7.6 Blood Pressure / Mean: Laboratory Tests 03/03/21 19:50: Creatinine 0.94, INR Comment 1.0, Platelet Count 177, Total Bilirubin 0.7 Results/Orders Lab Results Laboratory Tests Test 03/03/21 19:50 03/03/21 19:58 Range/Units White Blood Count 7.6 4.3-11.0 10^3/uL Red Blood Count 4.67 4.30-5.52 10^6/uL Hemoglobin 13.7 13.3-17.7 g/dL Hematocrit 43 40-54 % Mean Corpuscular Volume 92 80-99 fL Mean Corpuscular Hemoglobin 29 25-34 pg Mean Corpuscular Hemoglobin Concent 32 32-36 g/dL Red Cell Distribution Width 14.7 H 10.0-14.5 % Platelet Count 177 130-400 10^3/uL Mean Platelet Volume 10.3 9.0-12.2 fL Immature Granulocyte % (Auto) 0 % Neutrophils (%) (Auto) 56 42-75 % Lymphocytes (%) (Auto) 23 12-44 % Monocytes (%) (Auto) 14 H 0-12 % Eosinophils (%) (Auto) 6 0-10 % Basophils (%) (Auto) 1 0-10 % Neutrophils # (Auto) 4.2 1.8-7.8 10^3/uL Lymphocytes # (Auto) 1.8 1.0-4.0 10^3/uL Monocytes # (Auto) 1.1 H 0.0-1.0 10^3/uL Eosinophils # (Auto) 0.5 H 0.0-0.3 10^3/uL Basophils # (Auto) 0.1 0.0-0.1 10^3/uL Immature Granulocyte # (Auto) 0.0 0.0-0.1 10^3/uL Prothrombin Time 13.3 12.2-14.7 SEC INR Comment 1.0 0.8-1.4 Activated Partial Thromboplast Time 32 24-35 SEC Sodium Level 142 135-145 MMOL/L Potassium Level 4.2 3.6-5.0 MMOL/L Chloride Level 102 98-107 MMOL/L Carbon Dioxide Level 27 21-32 MMOL/L Anion Gap 13 5-14 MMOL/L Blood Urea Nitrogen 21 H 7-18 MG/DL Creatinine 0.94 0.60-1.30 MG/DL Estimat Glomerular Filtration Rate 82 BUN/Creatinine Ratio 22 Glucose Level 103 70-105 MG/DL Calcium Level 9.2 8.5-10.1 MG/DL Corrected Calcium 9.3 8.5-10.1 MG/DL Magnesium Level 2.1 1.6-2.4 MG/DL Total Bilirubin 0.7 0.1-1.0 MG/DL Aspartate Amino Transf (AST/SGOT) 23 5-34 U/L Alanine Aminotransferase (ALT/SGPT) 18 0-55 U/L Alkaline Phosphatase 45 40-136 U/L Ammonia 64 H 11-32 UMOL/L Troponin I < 0.028 <0.028 NG/ML B-Type Natriuretic Peptide 60.2 <100.0 PG/ML Total Protein 7.6 6.4-8.2 GM/DL Albumin 3.9 3.2-4.5 GM/DL Amylase Level 40 25-125 U/L TSH [place] Testing 3.15 0.35-4.94 UIU/ML Salicylates Level < 5.0 L 5.0-20.0 MG/DL Acetaminophen Level < 10 L 10-30 UG/ML Valproic Acid (Depakene) Level 61.9 50.0-100.0 UG/ML Serum Alcohol < 10 <10 MG/DL Urine Color YELLOW Urine Clarity CLEAR Urine pH 7.0 5-9 Urine Specific [place] 1.015 L 1.016-1.022 Urine Protein NEGATIVE NEGATIVE Urine Glucose (UA) NEGATIVE NEGATIVE Urine Ketones NEGATIVE NEGATIVE Urine Nitrite NEGATIVE NEGATIVE Urine Bilirubin NEGATIVE NEGATIVE Urine Urobilinogen 0.2 < = 1.0 MG/DL Urine Leukocyte Esterase NEGATIVE NEGATIVE Urine RBC (Auto) NEGATIVE NEGATIVE Urine RBC NONE /HPF Urine WBC NONE /HPF Urine Squamous Epithelial Cells RARE /HPF Urine Crystals NONE /LPF Urine Bacteria NEGATIVE /HPF Urine Casts NONE /LPF Urine Mucus NEGATIVE /LPF Urine Culture Indicated NO Urine Opiates Screen NEGATIVE NEGATIVE Urine Oxycodone Screen NEGATIVE NEGATIVE Urine Methadone Screen NEGATIVE NEGATIVE Urine Propoxyphene Screen NEGATIVE NEGATIVE Urine Barbiturates Screen NEGATIVE NEGATIVE Ur Tricyclic Antidepressants Screen NEGATIVE NEGATIVE Urine Phencyclidine Screen NEGATIVE NEGATIVE Urine Amphetamines Screen NEGATIVE NEGATIVE Urine Methamphetamines Screen NEGATIVE NEGATIVE Urine Benzodiazepines Screen POSITIVE H NEGATIVE Urine Cocaine Screen NEGATIVE NEGATIVE Urine Cannabinoids Screen NEGATIVE NEGATIVE My Orders Orders - TODD BARRIOS DO Ed Iv/Invasive Line Start (03/03/21 19:40) Ekg Tracing (03/03/21 19:40) Monitor-Rhythm Ecg Trace Only (03/03/21 19:40) Chest 1 View, Ap/Pa Only (03/03/21 19:40) Acetaminophen (03/03/21 19:40) Alcohol (03/03/21 19:40) Ammonia (03/03/21 19:40) Amylase (03/03/21 19:40) BNP (03/03/21:40) Cbc With Automated Diff (03/03/21 19:40) Comprehensive Metabolic Panel (03/03/21 19:40) Drug Screen Stat (Urine) (03/03/21:40) Magnesium (03/03/21:40) Protime With Inr (03/03/21:40) Partial Thromboplastin Time (03/03/21 19:40) Salicylate (03/03/21 19:40) Thyroid Analyzer (03/03/21:40) Ua Culture If Indicated (03/03/21:40) Troponin I (03/03/21 19:40) Valproic Acid (03/03/21 19:52) Vital Signs/I&O 03/03/21 19:40 Temp 36.7 Pulse 81 Resp 18 B/P (MAP) 171/100 (123) Pulse Ox 96 O2 Delivery Room Air Capillary Refill : Progress Note : Progress Note UNEVENTFUL ER STAY PT HAD NO COMPLAINTS FOR ENTIRE ER STAY ECG Initial ECG Impression Date: Mar 03, 2021 Initial ECG Impression Time: 19:52 Initial ECG Rate: 75 Initial ECG Rhythm: Normal Sinus (IVCD) Initial ECG Impression: Nonspecific Changes ( ) Initial ECG Comparisson: Unchanged Diagnostic Imaging Comments CXR--PER RADIOLOGIST REPORT AT 2029 FINDINGS: There is mild edema. No pneumonia. No pleural effusion or pneumothorax. Heart size is mildly enlarged. IMPRESSION: 1. Mildly enlarged heart and mild edema. Reviewed: Reviewed by Me Departure Communication (Admissions) 2043--SPOKE WITH DR. QUEVEDO, HOSPITALIST FOR [facility], ACCEPTS PT FOR ADMIT Impression Primary Impression: Schizophrenia Additional Impressions: Auditory hallucinations Unable to care for self Edema HX OF HTN ELEVATED AMMONIA LEVEL Disposition: ADMITTED INPATIENT Condition: Stable Admissions Decision to Admit Reason: Admit from ER (General) Decision to Admit/Date: Mar 03, 2021 Time/Decision to Admit Time: 20:45 Departure-Patient Inst. [facility]: [facility] [place] Primary Care Physician TODD BARRIOS DO Mar 03, 2021 19:47
[2021-03-03 20:00] LABS: BASOPHILS # (AUTO) 0.1 10^3/uL (0.0-0.1); BASOPHILS % (AUTO) 1 % (0-10); EOSINOPHILS # (AUTO) 0.5 10^3/uL (0.0-0.3); EOSINOPHILS % (AUTO) 6 % (0-10); HEMATOCRIT 43 % (40-54); HEMOGLOBIN 13.7 g/dL (13.3-17.7); LYMPHOCYTES # (AUTO) 1.8 10^3/uL (1.0-4.0); LYMPHOCYTES % (AUTO) 23 % (12-44); MEAN CORPUSCULAR HEMOGLOBIN 29 pg (25-34); MEAN CORPUSCULAR HGB CONC 32 g/dL (32-36); MEAN CORPUSCULAR VOLUME 92 fL (80-99); MEAN PLATELET VOLUME 10.3 fL (9.0-12.2); MONOCYTES # (AUTO) 1.1 10^3/uL (0.0-1.0); MONOCYTES % (AUTO) 14 % (0-12); NEUTROPHILS # (AUTO) 4.2 10^3/uL (1.8-7.8); NEUTROPHILS % (AUTO) 56 % (42-75); PLATELET COUNT 177 10^3/uL (130-400); WHITE BLOOD COUNT 7.6 10^3/uL (4.3-11.0)
[2021-03-03 20:03] LABS: BILIRUBIN,URINE NEGATIVE (NEGATIVE); CLARITY,URINE CLEAR; COLOR,URINE YELLOW; GLUCOSE, URINE (UA) NEGATIVE (NEGATIVE); KETONES,URINE NEGATIVE (NEGATIVE); LEUKOCYTE ESTERASE ,URINE NEGATIVE (NEGATIVE); NITRITE,URINE NEGATIVE (NEGATIVE); PROTEIN,URINE NEGATIVE (NEGATIVE)
[2021-03-03 20:09] LABS: BACTERIA,URINE NEGATIVE /HPF; SQUAMOUS EPITHELIAL CELL,UR RARE /HPF
[2021-03-03 20:13] LABS: AMPHETAMINE SCREEN, URINE NEGATIVE (NEGATIVE); BARBITURATE SCREEN URINE NEGATIVE (NEGATIVE); BENZODIAZEPINES SCREEN URINE POSITIVE (NEGATIVE); CANNABINOID SCREEN, URINE NEGATIVE (NEGATIVE); COCAINE SCREEN URINE NEGATIVE (NEGATIVE); METHADONE STAT NEGATIVE (NEGATIVE); METHAMPHETAMINE SCREEN URINE S NEGATIVE (NEGATIVE); OPIATE SCREEN URINE NEGATIVE (NEGATIVE); OXYCODONE STAT NEGATIVE (NEGATIVE); PROPOXYPHENE STAT NEGATIVE (NEGATIVE); TRICYCLIC ANTIDEPRESSANTS SCRE NEGATIVE (NEGATIVE)
[2021-03-03 20:14] LABS: PROTHROMBIN TIME PATIENT 13.3 SEC (12.2-14.7)
--- NOTE | 2021-03-03 20:19 | Diagnostic Imaging Report ---
EXAMINATION: Chest 1 view HISTORY: Edema COMPARISON: None available. FINDINGS: There is mild edema. No pneumonia. No pleural effusion or pneumothorax. Heart size is mildly enlarged. IMPRESSION: 1. Mildly enlarged heart and mild edema. Dictated by: Dictated on workstation # [id number]
[2021-03-03 20:21] LABS: ALANINE AMINOTRANSFERASE 18 U/L (0-55); ALBUMIN 3.9 GM/DL (3.2-4.5); ALKALINE PHOSPHATASE 45 U/L (40-136); AMMONIA 64 UMOL/L (11-32); AMYLASE 40 U/L (25-125); BILIRUBIN,TOTAL 0.7 MG/DL (0.1-1.0); BUN/CREATININE RATIO 22; CALCIUM 9.2 MG/DL (8.5-10.1); CARBON DIOXIDE 27 MMOL/L (21-32); CHLORIDE 102 MMOL/L (98-107); CREATININE SERUM 0.94 MG/DL (0.60-1.30); GFR ESTIMATED 82; GLUCOSE 103 MG/DL (70-105); MAGNESIUM 2.1 MG/DL (1.6-2.4); POTASSIUM 4.2 MMOL/L (3.6-5.0); SALICYLATE < 5.0 MG/DL (5.0-20.0); SODIUM 142 MMOL/L (135-145); TOTAL PROTEIN 7.6 GM/DL (6.4-8.2)
[2021-03-03 20:27] LABS: ACETAMINOPHEN < 10 UG/ML (10-30)
[2021-03-03 20:42] LABS: TSH (THYROID ANALYZER) 3.15 UIU/ML (0.35-4.94); VALPROIC ACID 61.9 UG/ML (50.0-100.0)
[2021-03-03] MEDS ORDERED: CATHETER FLUSH 10 ML SYR IV PRN (22:00)
[2021-03-03 22:11] VITALS: BP 142/75
[2021-03-03 23:42] VITALS: BP 127/70
[2021-03-04] MEDS: CATHETER FLUSH 10 ML SYR IV SCH ×4 (00:51→20:43)
[2021-03-04 03:59] VITALS: BP 124/61
[2021-03-04 05:56] LABS: BASOPHILS # (AUTO) 0.1 10^3/uL (0.0-0.1); BASOPHILS % (AUTO) 1 % (0-10); EOSINOPHILS # (AUTO) 0.4 10^3/uL (0.0-0.3); EOSINOPHILS % (AUTO) 6 % (0-10); HEMATOCRIT 42 % (40-54); HEMOGLOBIN 13.3 g/dL (13.3-17.7); LYMPHOCYTES # (AUTO) 1.6 10^3/uL (1.0-4.0); LYMPHOCYTES % (AUTO) 23 % (12-44); MEAN CORPUSCULAR HEMOGLOBIN 29 pg (25-34); MEAN CORPUSCULAR HGB CONC 32 g/dL (32-36); MEAN CORPUSCULAR VOLUME 92 fL (80-99); MEAN PLATELET VOLUME 10.6 fL (9.0-12.2); MONOCYTES % (AUTO) 15 % (0-12); NEUTROPHILS # (AUTO) 3.7 10^3/uL (1.8-7.8); NEUTROPHILS % (AUTO) 55 % (42-75); PLATELET COUNT 167 10^3/uL (130-400); WHITE BLOOD COUNT 6.8 10^3/uL (4.3-11.0)
[2021-03-04 06:19] LABS: CALCIUM 8.7 MG/DL (8.5-10.1); CREATININE SERUM 0.77 MG/DL (0.60-1.30); POTASSIUM 4.6 MMOL/L (3.6-5.0)
[2021-03-04 08:03] VITALS: BP 159/84
[2021-03-04] MEDS ORDERED: FURO20TA4 PO (11:40)
[2021-03-04] MEDS ORDERED: OLAN15TA35 PO (11:40)
[2021-03-04] MEDS ORDERED: TEMA15CA PO (11:40)
[2021-03-04] MEDS ORDERED: AMLO-251 PO (11:40)
[2021-03-04 12:33] VITALS: BP 170/90
--- NOTE | 2021-03-04 12:42 | History & Physical-Hospitalist ---
TONY MUNSON MED STUDENT 03/04/21 1242: History of Present Illness HPI/Chief Complaint CC: Hallucinations, BLE edema HPI: Pt reports that he has been feeling depressed for the past 4 months and has been experiencing auditory hallucinations. He describes the hallucinations as "scary sounds" and "crickets"; he is unable to understand any words being spoke n. Denies suicidal/homicidal ideation. 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 He has history significant for bipolar disorder, schizophrenia, CHF, HTN. Denies any pain, chest discomfort, SOB, N/V. Source: patient, RN/MD, EMS notes reviewed Exam Limitations: no limitations Date Seen 03/04/21 Time Seen by a Provider: 08:10 Attending Physician Rosangela Arauz DO [facility] Referring Physician Date of Admission Mar 03, 2021 at 20:45 Home Medications & Allergies Home Medications Reviewed patient Home Medication Reconciliation performed by pharmacy medication reconciliations customer account technician and/or nursing. Patients Allergies have been reviewed. Allergies Allergies Coded Allergies No Known Drug Allergies (Unverified05/15/10) Past Edkcrsz-Meafes-Fewqax Hx Patient Social History Marrital Status: single Tobacco Use?: No Smoking Status: Former Smoker Use of E-Cig and/or Vaping dev: No Substance use?: No Alcohol Use?: No Pt feels they are or have been: No Immunizations Up To Date Date of Influenza Vaccine: Jan 31, 2021 First/Initial COVID19 Vaccinat: 2020 Second COVID19 Vaccination Ray: 2020 Tetanus Booster (TDap): Unknown Date of Pneumonia Vaccine: Feb 01, 2012 Seasonal Allergies Seasonal Allergies: Yes Current Status Advance Directives: No Communicates: Verbally Primary Language: [place]dean Preferred Spoken Language: [place]dean Is interpretation needed?: No Sensory deficits: Vision impairment Implanted or Applied Medical D: None Past Medical History Surgeries: Appendectomy Sleep Apnea Currently Using CPAP: Yes Heart Murmur, High Cholesterol, Hypertension Gastroesophageal Reflux Arthritis Hypothyroidsim Glaucoma Loss of Vision: Denies Hearing Impairment: Denies Anxiety, Schizophrenia, Depression Blood Disorders: No Adverse Reaction/Blood Tranf: No Family Medical History Heart Disease, Hypertension, Stroke HAD COVID-19 IN OCTOBER 2020--RECEIVED REGENERON INFUSION, NO HOSPITALIZATION, NO COMPLICATIONS Review of Systems Constitutional: No chills, No dizziness, No fever EENTM: dental problems; No hearing loss, No eye pain, No vision loss Respiratory: No dyspnea on exertion, No hemoptysis, No short of breath Cardiovascular: No chest pain; edema (BLE 2+ pitting edema) Gastrointestinal: No abdominal pain, No constipation, No diarrhea, No nausea, No vomiting Genitourinary: No dysuria; frequency (reports urinating 20x/day); No hematuria Musculoskeletal: No back pain, No joint pain, No joint swelling Skin: No change in color, No change in hair/nails Psychiatric/Neurological: Denies Anxiety; Depressed; Denies Headache, Denies Numbness, Denies Paresthesia, Denies Tingling; Other (reports auditory hallucinations "scary sounds", "crickets") All Other Systems Reviewed Negative Unless Noted: Yes Physical Exam Physical Exam Vital Signs Vital Signs - First Documented 03/03/21 19:40 Temp 36.7 Pulse 81 Resp 18 B/P (MAP) 171/100 (123) Pulse Ox 96 O2 Delivery Room Air Capillary Refill : Less Than 3 Seconds Height, Weight, BMI Height: 5'7.00" Weight: 210lbs. 9.0oz. [id number]; 37.59 BMI Method:Actual General Appearance: No Apparent Distress, WD/WN, Obese Eyes: Bilateral Eye Normal Inspection, Bilateral Eye PERRL, Bilateral Eye EOMI HEENT: PERRL/EOMI, Normal ENT Inspection, Pharynx Normal Neck: Full Range of Motion, Normal Inspection, Non Tender, Supple Respiratory: Chest Non Tender, Lungs Clear, Normal Breath Sounds, No Accessory Muscle Use, No Respiratory Distress Cardiovascular: Regular Rate, Rhythm, No JVD, Normal Peripheral Pulses, Systolic Murmur, Other (BLE 2+ pitting edema) Gastrointestinal: Normal Bowel Sounds, Non Tender, Soft Rectal: Deferred Back: Normal Inspection, No CVA Tenderness, No Vertebral Tenderness Extremity: Normal Capillary Refill, Normal Range of Motion, Non Tender, No Calf Tenderness, Pedal Edema, Swelling (BLE 2+ pitting edema) Neurologic/Psychiatric: Alert, Oriented x3, No Motor/Sensory Deficits, Normal Mood/Affect Skin: Warm/Dry, Other (BLE swollen, mildly erythematous) Lymphatic: No Adenopathy Results Results/Procedures Labs Laboratory Tests 03/03/21 19:50 03/04/21 05:38 Patient resulted labs reviewed. Imaging: Reviewed Imaging Films, Reviewed Imaging Report Assessment/Plan Admission Diagnosis Hallucinations, BLE edema Admission Status: Inpatient Order (span 2 midnights) Reason for Inpatient Admission: Unable to care for self, cardiology w/u Assessment and Plan BLE edema CHF HTN Polyuria Continue home meds, awaiting med rec Cardiology consult Trp, BNP negative Monitor labs/vitals Debility r/t schizophrenia, bipolar disorder SS consult for transfer to [facility] ROSANGELA ARAUZ 03/05/21 0558: History of Present Illness HPI/Chief Complaint Chief complaint: Hallucinations and inability to care for self History of present illness: This is a 60-year-old white male known to me from prior Senior behavioral unit management at [place] nearly 2 months ago who has a past medical history of schizophrenia who was brought to the ER by his ex- due to inability to care for self at home. At this current time patient reports lower extremity edema so I will consult cardiology and will we will restart his home meds. Senior unit will be evaluating. Source: patient, RN/MD, EMS notes reviewed Exam Limitations: no limitations Past Zxytrlt-Kxdaxq-Oktfjb Hx Patient Social History Marrital Status: single Employed/Student: unemployed Smoking Status: Former Smoker Past Medical History Cardiomyopathy, High Cholesterol, Hypertension Schizophrenia Review of Systems Constitutional: see HPI, malaise, weakness EENTM: no symptoms reported Respiratory: dyspnea on exertion Cardiovascular: edema (BLE 2+ pitting edema) Gastrointestinal: no symptoms reported Genitourinary: no symptoms reported Musculoskeletal: no symptoms reported Skin: no symptoms reported Psychiatric/Neurological: No Symptoms Reported All Other Systems Reviewed Negative Unless Noted: Yes Physical Exam Physical Exam General Appearance: No Apparent Distress, WD/WN, Chronically ill, Obese (Guidance) Eyes: Right Eye Normal Inspection, Right Eye PERRL HEENT: PERRL/EOMI, Normal ENT Inspection, Pharynx Normal, Moist Mucous Membranes Neck: Full Range of Motion, Normal Inspection, Non Tender Respiratory: Chest Non Tender, Lungs Clear, Normal Breath Sounds, No Accessory Muscle Use, No Respiratory Distress Cardiovascular: Regular Rate, Rhythm, No Edema, No Gallop, No JVD, No Murmur, Normal Peripheral Pulses Gastrointestinal: Normal Bowel Sounds, No Organomegaly, No Pulsatile Mass, Non Tender, Soft Back: Normal Inspection, No CVA Tenderness, No Vertebral Tenderness Extremity: Normal Capillary Refill, Normal Inspection, Normal Range of Motion, Non Tender, No Calf Tenderness, Pedal Edema, Swelling (BLE 2+ pitting edema) Neurologic/Psychiatric: Alert, Oriented x3, No Motor/Sensory Deficits, Depressed Affect Skin: Normal Color, Warm/Dry Lymphatic: No Adenopathy Assessment/Plan Admission Diagnosis Assessment: Hallucinations Schizophrenia Inability to care for self Edema History of cardiac dysfunction Plan: Cardiology eval Senior unit eval Admission Status: Observation Diagnosis/Problems Diagnosis/Problems (1) Schizophrenia Status: Chronic (2) Unable to care for self Status: Acute (3) Edema Status: Acute (4) Primary hypertension (5) Acute on chronic diastolic heart failure Supervisory-Addendum Brief Verification & Attestation Participated in pt care: history, MDM, physical Personally performed: exam, history, MDM, supervision of care Care discussed with: Medical Student Procedures: n/a Results interpretation: Verified all documentation Verification and Attestation of Medical Student E/M Service A medical student performed and documented this service in my presence. I reviewed and verified all information documented by the medical student and made modifications to such information, when appropriate. I personally performed the physical exam and medical decision making. Rosangela Arauz, Mar 05, 2021,05:55 TONY MUNSON MED STUDENT Mar 04, 2021 12:42 ROSANGELA ARAUZ DO Mar 05, 2021 05:58
[2021-03-04 13:23] VITALS: BP 136/76
[2021-03-04] MEDS ORDERED: TEMAZEPAM 15 MG (RESTORIL) CAP PO PRN (15:00)
[2021-03-04 16:58] VITALS: BP 143/72
[2021-03-04 17:00] LABS: CHOLESTEROL 130 MG/DL (< 200); HDL CHOLESTEROL 42 MG/DL (40-60); TRIGLYCERIDES 145 MG/DL (<150); VLDL CHOLESTEROL 29 MG/DL (5-40)
--- NOTE | 2021-03-04 17:08 | Consultation-Cardiology ---
HPI-Cardiology Cardiology Consultation: Date of Consultation 03/04/2021 Date of Admission 03/03/2021 Attending Physician Rosangela Arauz DO Admitting Physician [facility] Consulting Physician CHAGO HERNANDEZ JR, MD HPI: Time Seen by a Provider: 17:04 Chief Complaint: Reason for consultation: Heart failure I had the pleasure of seeing Ruperto on the medical floor at [facility] in [place], [place] this afternoon. He appears to have a history of chronic diastolic heart failure, hypertension and hyperlipidemia. He states that over the past few weeks he has had increasing lower extremity edema. He was actually seen by his primary provider who had him undergo an echocardiogram last week. He then started developing worsening dyspnea on exertion as well as some chest tightness when he would get the dyspnea. He also reports that he has sleep apnea and his CPAP is not working. Because of the shortness of breath as well as depression, he came to the emergency room for further evaluation. His chest x-ray showed pulmonary congestion and a cardiology consultation was requested. He states that sometimes he wakes up at night but he feels as though this may be related to his snoring. He denies orthopnea. He has had some lightheaded spells from time to time but denies syncope. He denies any palpitations. Because of his depression, he is hoping to be transferred to [facility] for inpatient psychiatry. Certain portions of this document may have been dictated utilizing voice recognition technology. Inherent to this technology, typographical and grammatical errors may exist. As much as I am diligent to identify and correct these mistakes, some errors may remain in the document. Review of Systems-Cardiology Review of Systems Other comments Review of 10 organ systems is as per the history of present illness, otherwise negative. All Other Systems Reviewed Negative Unless Noted: Yes DFR-Gsmopf-Lisyqo Hx Patient Social History Marrital Status: single Smoking Status: Former Smoker 2nd Hand Smoke Exposure: No Have you traveled recently?: No Alcohol Use?: No Pt feels they are or have been: No Immunizations Up To Date Tetanus Booster (TDap): Less than 5yrs Date of Pneumonia Vaccine: Feb 01, 2012 Date of Influenza Vaccine: Jan 31, 2021 Past Medical History PMH As described under Assessment. Family Medical History Family Medical History: He reports his mother had 3 heart attacks in her 50's and with a heart attack at age 57. Allergies and Home Medications Allergies Coded Allergies: No Known Drug Allergies (Unverified , 05/15/10) Patient Home Medication List Home Medication List Reviewed: Yes Amlodipine Besylate (Amlodipine Besylate) 10 Mg Tablet, 10 MG PO DAILY, (Reported) Entered as Reported by: DINORA TA on 03/04/211139 Last Action: Continued Aripiprazole (Aripiprazole) 15 Mg Tablet, 15 MG PO DAILY, (Reported) Entered as Reported by: RUPERTO SELLERS on 01/02/211930 Last Action: Continued Aspirin (Aspirin EC) 81 Mg Tablet.dr, 81 MG PO DAILY, (Reported) Entered as Reported by: DINORA TA on 01/03/211351 Last Action: Continued Atorvastatin Calcium (Atorvastatin Calcium) 20 Mg Tablet, 20 MG PO HS, (Reported) Entered as Reported by: RUPERTO SELLERS on 01/02/211930 Last Action: Continued Divalproex Sodium (Divalproex Sodium ER) 500 Mg Tab.er.24h, 500 MG PO 0800,1400,1999, (Reported) Entered as Reported by: RUPERTO SELLERS on 01/02/211930 Last Action: Reviewed Furosemide (Furosemide) 20 Mg Tablet, 20 MG PO 0800,1600, (Reported) Entered as Reported by: DINORA TA on 03/04/211139 Last Action: Continued Levothyroxine Sodium (Levothyroxine Sodium) 50 Mcg Tablet, 50 MCG PO DAILY, (Reported) Entered as Reported by: DINORA TA on 01/03/211351 Last Action: Continued Lisinopril (Lisinopril) 40 Mg Tablet, 40 MG PO DAILY, (Reported) Entered as Reported by: DINORA TA on 01/03/211351 Last Action: Continued Olanzapine (Olanzapine) 15 Mg Tablet, 15 MG PO HS, (Reported) Entered as Reported by: DINORA TA on 03/04/211139 Last Action: Converted Potassium Chloride (K-Tab ER) 10 Meq Tablet.er, 10 MEQ PO DAILY, (Reported) Entered as Reported by: DINORA TA on 01/03/211351 Last Action: Continued Temazepam (Temazepam) 15 Mg Capsule, 15-30 MG PO HS PRN for SLEEP, (Reported) Entered as Reported by: DINORA TA on 03/04/21 1140 Last Action: Continued Discontinued Medications Amlodipine Besylate (Amlodipine Besylate) 2.5 Mg Tablet, 2.5 MG PO DAILY, (Reported) Discontinued Reason: No Longer Taking Entered as Reported by: DINORA TA on 01/03/21 1352 Last Action: Discontinued Furosemide (Furosemide) 20 Mg Tablet, 20 MG PO DAILY, (Reported) Discontinued Reason: Duplicate Order Entered as Reported by: DINORA TA on 01/03/21 1352 Last Action: Discontinued Hydralazine HCl (Hydralazine HCl) 50 Mg Tablet, 50 MG PO DAILY, (Reported) Discontinued Reason: No Longer Taking Entered as Reported by: DINORA TA on 01/03/21 1352 Last Action: Discontinued Olanzapine (Zyprexa) 5 Mg Tablet, 5 MG PO DAILY Discontinued Reason: Duplicate Order Prescribed by: ISABELL MARIN on 01/22/21 1213 Last Action: Discontinued Exam Vital Signs Vital Signs Date Time Temp Pulse Resp B/P (MAP) Pulse Ox O2 Delivery O2 Flow Rate FiO2 03/04/21 16:58 37.1 69 20 143/72 (95) 94 Room Air Physical Exam General: Alert. No acute distress. Well nourished and appears stated age. He is obese. Eye: Extraocular movements are intact. Conjunctivae are clear. There are no xanthelasma. HENT: Normocephalic. Atraumatic. Carotid pulsations 2/2 without bruits. Neck: Jugular venous pressure does not appear elevated. No thyromegaly appreciated. Respiratory: Lungs are clear to auscultation. Respirations are non-labored. Breath sounds are equal. Symmetrical chest wall expansion. Cardiovascular: Normal rate. Regular rhythm. 2/6 systolic ejection murmur. No gallop. Point of maximal impulse is not appear displaced. Good pulses equal in all extremities. 2+ tense bilateral pretibial edema. Gastrointestinal: Soft. Normal bowel sounds. Skin: Skin turgor is normal. There is no pallor. Musculoskeletal: No kyphosis or scoliosis appreciated. Neurologic: Alert and oriented to person, place, time. Cranial nerves 3-12 appear grossly intact. The patient has good motor tone strength in the upper and lower extremities bilaterally. Psychiatric: Cooperative. He is depressed. Labs Laboratory Tests Test 03/03/21 19:50 03/03/21 19:58 03/04/21 05:38 Range/Units White Blood Count 7.6 6.8 4.3-11.0 10^3/uL Red Blood Count 4.67 4.53 4.30-5.52 10^6/uL Hemoglobin 13.7 13.3 13.3-17.7 g/dL Hematocrit 43 42 40-54 % Mean Corpuscular Volume 92 92 80-99 fL Mean Corpuscular Hemoglobin 29 29 25-34 pg Mean Corpuscular Hemoglobin Concent 32 32 32-36 g/dL Red Cell Distribution Width 14.7 H 15.0 H 10.0-14.5 % Platelet Count 177 167 130-400 10^3/uL Mean Platelet Volume 10.3 10.6 9.0-12.2 fL Immature Granulocyte % (Auto) 0 0 % Neutrophils (%) (Auto) 56 55 42-75 % Lymphocytes (%) (Auto) 23 23 12-44 % Monocytes (%) (Auto) 14 H 15 H 0-12 % Eosinophils (%) (Auto) 6 6 0-10 % Basophils (%) (Auto) 1 1 0-10 % Neutrophils # (Auto) 4.2 3.7 1.8-7.8 10^3/uL Lymphocytes # (Auto) 1.8 1.6 1.0-4.0 10^3/uL Monocytes # (Auto) 1.1 H 1.0 0.0-1.0 10^3/uL Eosinophils # (Auto) 0.5 H 0.4 H 0.0-0.3 10^3/uL Basophils # (Auto) 0.1 0.1 0.0-0.1 10^3/uL Immature Granulocyte # (Auto) 0.0 0.0 0.0-0.1 10^3/uL Prothrombin Time 13.3 12.2-14.7 SEC INR Comment 1.0 0.8-1.4 Activated Partial Thromboplast Time 32 24-35 SEC Sodium Level 142 140 135-145 MMOL/L Potassium Level 4.2 4.6 3.6-5.0 MMOL/L Chloride Level 102 103 98-107 MMOL/L Carbon Dioxide Level 27 26 21-32 MMOL/L Anion Gap 13 11 5-14 MMOL/L Blood Urea Nitrogen 21 H 20 H 7-18 MG/DL Creatinine 0.94 0.77 0.60-1.30 MG/DL Estimat Glomerular Filtration Rate 82 103 BUN/Creatinine Ratio 22 26 Glucose Level 103 97 70-105 MG/DL Calcium Level 9.2 8.7 8.5-10.1 MG/DL Corrected Calcium 9.3 8.5-10.1 MG/DL Magnesium Level 2.1 1.6-2.4 MG/DL Total Bilirubin 0.7 0.1-1.0 MG/DL Aspartate Amino Transf (AST/SGOT) 23 5-34 U/L Alanine Aminotransferase (ALT/SGPT) 18 0-55 U/L Alkaline Phosphatase 45 40-136 U/L Ammonia 64 H 11-32 UMOL/L Troponin I < 0.028 <0.028 NG/ML B-Type Natriuretic Peptide 60.2 <100.0 PG/ML Total Protein 7.6 6.4-8.2 GM/DL Albumin 3.9 3.2-4.5 GM/DL Amylase Level 40 25-125 U/L TSH Ray Testing 3.15 0.35-4.94 UIU/ML Salicylates Level < 5.0 L 5.0-20.0 MG/DL Acetaminophen Level < 10 L 10-30 UG/ML Valproic Acid (Depakene) Level 61.9 50.0-100.0 UG/ML Serum Alcohol < 10 <10 MG/DL Urine Color YELLOW Urine Clarity CLEAR Urine pH 7.0 5-9 Urine Specific [place] 1.015 L 1.016-1.022 Urine Protein NEGATIVE NEGATIVE Urine Glucose (UA) NEGATIVE NEGATIVE Urine Ketones NEGATIVE NEGATIVE Urine Nitrite NEGATIVE NEGATIVE Urine Bilirubin NEGATIVE NEGATIVE Urine Urobilinogen 0.2 < = 1.0 MG/DL Urine Leukocyte Esterase NEGATIVE NEGATIVE Urine RBC (Auto) NEGATIVE NEGATIVE Urine RBC NONE /HPF Urine WBC NONE /HPF Urine Squamous Epithelial Cells RARE /HPF Urine Crystals NONE /LPF Urine Bacteria NEGATIVE /HPF Urine Casts NONE /LPF Urine Mucus NEGATIVE /LPF Urine Culture Indicated NO Urine Opiates Screen NEGATIVE NEGATIVE Urine Oxycodone Screen NEGATIVE NEGATIVE Urine Methadone Screen NEGATIVE NEGATIVE Urine Propoxyphene Screen NEGATIVE NEGATIVE Urine Barbiturates Screen NEGATIVE NEGATIVE Ur Tricyclic Antidepressants Screen NEGATIVE NEGATIVE Urine Phencyclidine Screen NEGATIVE NEGATIVE Urine Amphetamines Screen NEGATIVE NEGATIVE Urine Methamphetamines Screen NEGATIVE NEGATIVE Urine Benzodiazepines Screen POSITIVE H NEGATIVE Urine Cocaine Screen NEGATIVE NEGATIVE Urine Cannabinoids Screen NEGATIVE NEGATIVE Triglycerides Level 145 <150 MG/DL Cholesterol Level 130 < 200 MG/DL LDL Cholesterol Direct 71 1-129 MG/DL VLDL Cholesterol 29 5-40 MG/DL HDL Cholesterol 42 40-60 MG/DL Radiology Echocardiogram from 02/26/2021 showed normal left ventricular chamber size with mild concentric left ventricular hypertrophy with normal left ventricular systolic function with an estimated ejection fraction of 65-70%. The left ventricular diastolic parameters appeared normal. No significant valvular pathology was identified. ECG Impression ECG Comment Sinus rhythm with left atrial abnormality and nonspecific intraventricular conduction delay. Diagnosis/Problems Diagnosis/Problems (1) Acute on chronic diastolic heart failure Assessment & Plan: He has pulmonary congestion on his chest x-ray as well as peripheral edema. On the other hand, his BNP level was normal. Some of his peripheral edema could be due to chronic venous stasis as well as from amlodipine. I will give him a dose of IV Lasix and obtain a follow-up chest x- ray in the morning. (2) Primary hypertension Assessment & Plan: Resume outpatient antihypertensive medication and continue to monitor. If he continues to have peripheral edema, we may want to change his amlodipine to a different antihypertensive medication that will not cause peripheral edema. (3) Mixed hyperlipidemia Assessment & Plan: Continue statin medication. I have added a lipid panel to his previous blood work. (4) Edema Status: Acute Assessment & Plan: As above, some of this could just be chronic venous stasis due to his obesity and also some vasodilatory effect from amlodipine. We will proceed as above. (5) Obesity Assessment & Plan: He needs to work on weight loss. CHAGO HERNANDEZ JR, MD Mar 04, 2021 17:08
[2021-03-04] MEDS: DIVALPROEX EXT RELEASE 500 MG (DEPAKOTE ER) TAB PO SCH ×2 (17:11→20:42)
[2021-03-04] MEDS: FUROSEMIDE 20 MG (LASIX) TAB PO SCH (17:11)
[2021-03-04] MEDS ORDERED: FUROSEMIDE 40 MG/4 ML INJ (LASIX) IVP NR (18:00)
[2021-03-04] MEDS: OLANZapine 5 MG (ZyPREXA) TAB PO SCH (20:35)
[2021-03-04 20:53] VITALS: BP 138/84
[2021-03-04] MEDS ORDERED: NON-FORMULARY MEDICATION 1 EA EA (Olanzapine 15 MG) PO SCH (21:00)
[2021-03-05] VITALS: BP 124/73
[2021-03-05 04:00] VITALS: BP 126/76
[2021-03-05 05:13] VITALS: BP 126/76
[2021-03-05] MEDS: LEVOTHYROXINE 50 MCG (LEVOTHROID) TAB PO SCH (05:48)
[2021-03-05] MEDS: CATHETER FLUSH 10 ML SYR IV SCH ×3 (05:49→20:34)
[2021-03-05 07:18] LABS: BASOPHILS % (AUTO) 1 % (0-10); EOSINOPHILS # (AUTO) 0.4 10^3/uL (0.0-0.3); EOSINOPHILS % (AUTO) 6 % (0-10); HEMATOCRIT 44 % (40-54); HEMOGLOBIN 14.2 g/dL (13.3-17.7); LYMPHOCYTES # (AUTO) 1.3 10^3/uL (1.0-4.0); LYMPHOCYTES % (AUTO) 18 % (12-44); MEAN CORPUSCULAR HEMOGLOBIN 30 pg (25-34); MEAN CORPUSCULAR HGB CONC 32 g/dL (32-36); MEAN CORPUSCULAR VOLUME 92 fL (80-99); MONOCYTES # (AUTO) 1.1 10^3/uL (0.0-1.0); MONOCYTES % (AUTO) 16 % (0-12); NEUTROPHILS # (AUTO) 4.2 10^3/uL (1.8-7.8); NEUTROPHILS % (AUTO) 60 % (42-75); PLATELET COUNT 158 10^3/uL (130-400); WHITE BLOOD COUNT 7.1 10^3/uL (4.3-11.0)
[2021-03-05 07:35] LABS: ALBUMIN 3.7 GM/DL (3.2-4.5); BILIRUBIN,TOTAL 1.1 MG/DL (0.1-1.0); CREATININE SERUM 0.83 MG/DL (0.60-1.30); TOTAL PROTEIN 7.5 GM/DL (6.4-8.2)
[2021-03-05 07:39] VITALS: BP 131/77
[2021-03-05] MEDS: KCL 10 MEQ TAB (MICRO K) PO SCH (08:39)
[2021-03-05] MEDS: lisINopril 40 MG (PRINIVIL) TABLET PO SCH (08:39)
[2021-03-05] MEDS: FUROSEMIDE 20 MG (LASIX) TAB PO SCH ×2 (08:39→16:32)
[2021-03-05] MEDS: DIVALPROEX EXT RELEASE 500 MG (DEPAKOTE ER) TAB PO SCH ×3 (08:39→20:31)
[2021-03-05] MEDS: amLODIPine 10 MG (NORVASC) TAB PO SCH (08:39)
[2021-03-05] MEDS: ASPIRIN E.C. 81 MG (ECOTRIN) TAB PO SCH (08:39)
--- NOTE | 2021-03-05 09:45 | Cardiology Progress Note ---
Progress Note-Cardiology Events since last exam Date Seen by Provider: Mar 05, 2021 Time Seen by Provider: 09:40 Events since last exam I am following the patient for heart failure. Overnight, he was tested for C ovid which came back positive. I did not see the patient today because of his Covid status. I did speak to his nurse of today. Certain portions of this document may have been dictated utilizing voice recognition technology. Inherent to this technology, typographical and grammatical errors may exist. As much as I am diligent to identify and correct these mistakes, some errors may remain in the document. Vitals Last set of Vitals Signs Vital Signs 03/05/21 03/05/21 07:39 08:48 Temp 36.6 Pulse 61 Resp 20 B/P (MAP) 131/77 (95) Pulse Ox 94 O2 Delivery Room Air Labs Labs Laboratory Tests 03/05/21 06:36 Exam Vital Signs Vital Signs Date Time Temp Pulse Resp B/P (MAP) Pulse Ox O2 Delivery O2 Flow Rate FiO2 03/05/21 08:48 Room Air 03/05/21 07:39 36.6 61 20 131/77 (95) 94 Physical Exam I did not examine the patient due to his Covid status. Labs Laboratory Tests Test 03/04/21 17:14 03/04/21 18:21 03/05/21 06:36 Range/Units SARS-CoV-2 RNA (RT-PCR) Detected H Not Detecte White Blood Count 7.1 4.3-11.0 10^3/uL Red Blood Count 4.74 4.30-5.52 10^6/uL Hemoglobin 14.2 13.3-17.7 g/dL Hematocrit 44 40-54 % Mean Corpuscular Volume 92 80-99 fL Mean Corpuscular Hemoglobin 30 25-34 pg Mean Corpuscular Hemoglobin Concent 32 32-36 g/dL Red Cell Distribution Width 14.9 H 10.0-14.5 % Platelet Count 158 130-400 10^3/uL Mean Platelet Volume 10.0 9.0-12.2 fL Immature Granulocyte % (Auto) 0 % Neutrophils (%) (Auto) 60 42-75 % Lymphocytes (%) (Auto) 18 12-44 % Monocytes (%) (Auto) 16 H 0-12 % Eosinophils (%) (Auto) 6 0-10 % Basophils (%) (Auto) 1 0-10 % Neutrophils # (Auto) 4.2 1.8-7.8 10^3/uL Lymphocytes # (Auto) 1.3 1.0-4.0 10^3/uL Monocytes # (Auto) 1.1 H 0.0-1.0 10^3/uL Eosinophils # (Auto) 0.4 H 0.0-0.3 10^3/uL Basophils # (Auto) 0.0 0.0-0.1 10^3/uL Immature Granulocyte # (Auto) 0.0 0.0-0.1 10^3/uL Sodium Level 141 135-145 MMOL/L Potassium Level 4.0 3.6-5.0 MMOL/L Chloride Level 101 98-107 MMOL/L Carbon Dioxide Level 26 21-32 MMOL/L Anion Gap 14 5-14 MMOL/L Blood Urea Nitrogen 19 H 7-18 MG/DL Creatinine 0.83 0.60-1.30 MG/DL Estimat Glomerular Filtration Rate 95 BUN/Creatinine Ratio 23 Glucose Level 104 70-105 MG/DL Calcium Level 9.0 8.5-10.1 MG/DL Corrected Calcium 9.2 8.5-10.1 MG/DL Total Bilirubin 1.1 H 0.1-1.0 MG/DL Aspartate Amino Transf (AST/SGOT) 24 5-34 U/L Alanine Aminotransferase (ALT/SGPT) 21 0-55 U/L Alkaline Phosphatase 46 40-136 U/L Total Protein 7.5 6.4-8.2 GM/DL Albumin 3.7 3.2-4.5 GM/DL Diagnosis/Problems Diagnosis/Problems (1) Acute on chronic diastolic heart failure Assessment & Plan: He had pulmonary congestion on his chest x-ray as well as peripheral edema. On the other hand, his BNP level was normal. Some of his peripheral edema could be due to chronic venous stasis as well as from amlodipine. I recommend he continue on the outpatient dose of oral furosemide. (2) Primary hypertension Assessment & Plan: Blood pressure remains well controlled on his outpatient antihypertensive medication. If he continues to have peripheral edema, we may want to change his amlodipine to a different antihypertensive medication that will not cause peripheral edema. (3) Mixed hyperlipidemia Assessment & Plan: Continue statin medication. His LDL level from this admission is well controlled. (4) Edema Status: Acute Assessment & Plan: As above, some of this could just be chronic venous stasis due to his obesity and also some vasodilatory effect from amlodipine. We will proceed as above. (5) Obesity Assessment & Plan: He needs to work on weight loss. (6) Lab test positive for detection of COVID-19 virus Assessment & Plan: He is now on isolation. Follow-up testing is pending. There is a question as to whether or not the test may have been positive due to him recently receiving a booster dose of vaccine. CHAGO HERNANDEZ JR, MD Mar 05, 2021 09:45
--- NOTE | 2021-03-05 11:20 | Progress Note - Hospitalist ---
TONY MUNSON MED STUDENT 03/05/21 1120: Subjective HPI/CC On Admission Date Seen by Provider: Mar 05, 2021 Time Seen by Provider: 08:45 Chief complaint: Hallucinations and inability to care for self History of present illness: This is a 60-year-old white male known to me from prior Senior behavioral unit management at [facility] nearly 2 months ago who has a past medical history of schizophrenia who was brought to the ER by his ex- due to inability to care for self at home. At this current time patient reports lower extremity edema so I will consult cardiology and will we will restart his home meds. Senior unit will be evaluating. Subjective/Events-last exam Pt seen and examined. COVID positive. No new events since yesterday. Maintains baseline SOB/DUNNE. Continues to state he has auditory hallucinations. Working with social work case manager for placement in [facility]; transfer currently on hold due to COVID status. No complaints of pain, N/V, fevers/chills. Review of Systems General: No Chills, No Fatigue HEENT: No Head Aches, No Visual Changes, No Dysphasia Pulmonary: Dyspnea; No Cough, No Pleuritic Chest Pain Cardiovascular: Edema (BLE); No: Chest Pain, Palpitations, Orthopnea Gastrointestinal: No: Nausea, Vomiting, Abdominal Pain, Diarrhea, Constipation Genitourinary: No Dysuria, No Frequency, No Incontinence Musculoskeletal: No: neck pain, shoulder pain, back pain Neurological: No: Weakness, Numbness Auditory hallucinations, depression Focused Exam Sepsis Stage: Ruled Out Reason for ruling out sepsis: 0 SIRS, no suspicion Objective Exam Vital Signs Vital Signs Date Time Temp Pulse Resp B/P (MAP) Pulse Ox O2 Delivery O2 Flow Rate FiO2 03/05/21 08:48 Room Air 03/05/21 07:39 36.6 61 20 131/77 (95) 94 Capillary Refill : Less Than 3 Seconds General Appearance: No Apparent Distress, WD/WN, Obese HEENT: PERRL/EOMI, Normal ENT Inspection, Pharynx Normal Neck: Full Range of Motion, Normal Inspection, Non Tender, Supple Respiratory: Chest Non Tender, Lungs Clear, Normal Breath Sounds, No Accessory Muscle Use, No Respiratory Distress Cardiovascular: Regular Rate, Rhythm, No JVD, Normal Peripheral Pulses, Other (BLE 2+ pitting edema) Gastrointestinal: Normal Bowel Sounds, Non Tender, Soft Rectal: Deferred Back: Normal Inspection, No CVA Tenderness, No Vertebral Tenderness Extremity: Normal Capillary Refill, Normal Inspection, Normal Range of Motion, Non Tender, No Calf Tenderness Neurologic/Psychiatric: Alert, Oriented x3, No Motor/Sensory Deficits, Normal Mood/Affect Skin: Normal Color, Warm/Dry Lymphatic: No Adenopathy Results/Procedures Lab Laboratory Tests 03/05/21 06:36 Patient resulted labs reviewed. Imaging: Reviewed Imaging Films, Reviewed Imaging Report Assessment/Plan Assessment and Plan Assess & Plan/Chief Complaint BLE edema CHF HTN Continue home meds Cardiology consulted; rec continuing home meds for HTN/diuresis Trp, BNP negative Monitor labs/vitals Debility r/t schizophrenia, bipolar disorder Transfer to [facility] on hold due to COVID Continue home meds ROSANGELA QUEVEDO DO 03/06/21 0536: Subjective Subjective/Events-last exam Pt doing okay Covid swab rapid was positive, the send out was sent and that will be back tomorrow Pt has no symptoms, no hypoxia, CXR showed no Covid Dr. Hernandez initiated Lasix Pt understanding of the situation Review of Systems General: Fatigue Objective Exam General Appearance: No Apparent Distress, WD/WN, Chronically ill, Obese Respiratory: Lungs Clear, Normal Breath Sounds Cardiovascular: Regular Rate, Rhythm Neurologic/Psychiatric: Alert, Oriented x3 Assessment/Plan Assessment and Plan Assess & Plan/Chief Complaint Await PCR send out Covid test since I think rapid is inaccurate in a false positive Senior behavioral unit if PCR negative Patient able to make own decisions he is oriented x3 and appears to have good judgment Supervisory-Addendum Brief Verification & Attestation Participated in pt care: history, MDM, physical Personally performed: exam, history, MDM, supervision of care Care discussed with: Medical Student Procedures: n/a Results interpretation: Verified all documentation Verification and Attestation of Medical Student E/M Service A medical student performed and documented this service in my presence. I reviewed and verified all information documented by the medical student and made modifications to such information, when appropriate. I personally performed the physical exam and medical decision making. Rosangela Quevedo, Mar 06, 2021,05:35 TONY MUNSON MED STUDENT Mar 05, 2021 11:20 ROSANGELA QUEVEDO DO Mar 06, 2021 05:36
[2021-03-05] MEDS: ACETAMINOPHEN 325 MG TABLET PO PRN (14:05)
[2021-03-05 16:00] VITALS: BP 141/81
--- NOTE | 2021-03-05 16:09 | Diagnostic Imaging Report ---
INDICATION: Dyspnea on exertion. TIME OF EXAM: 3:34 PM Correlation is made with prior chest from 03/03/2021. The heart size is normal. The pulmonary vascularity is unremarkable. The lungs are clear. No infiltrate, effusion or pneumothorax is detected. IMPRESSION: No acute cardiopulmonary process is detected. Dictated by: Dictated on workstation # [id number]
[2021-03-05] MEDS: OLANZapine 5 MG (ZyPREXA) TAB PO SCH (20:33)
[2021-03-06] VITALS: BP 159/73
[2021-03-06 04:00] VITALS: BP 116/72
[2021-03-06 05:43] LABS: BASOPHILS % (AUTO) 1 % (0-10); EOSINOPHILS # (AUTO) 0.5 10^3/uL (0.0-0.3); EOSINOPHILS % (AUTO) 6 % (0-10); HEMATOCRIT 43 % (40-54); HEMOGLOBIN 13.8 g/dL (13.3-17.7); LYMPHOCYTES # (AUTO) 1.7 10^3/uL (1.0-4.0); LYMPHOCYTES % (AUTO) 23 % (12-44); MEAN CORPUSCULAR HEMOGLOBIN 30 pg (25-34); MEAN CORPUSCULAR HGB CONC 32 g/dL (32-36); MEAN CORPUSCULAR VOLUME 93 fL (80-99); MEAN PLATELET VOLUME 10.6 fL (9.0-12.2); MONOCYTES # (AUTO) 1.2 10^3/uL (0.0-1.0); MONOCYTES % (AUTO) 16 % (0-12); NEUTROPHILS % (AUTO) 54 % (42-75); PLATELET COUNT 166 10^3/uL (130-400); WHITE BLOOD COUNT 7.5 10^3/uL (4.3-11.0)
--- NOTE | 2021-03-06 06:02 | Discharge Summary ---
Diagnosis/Chief Complaint Date of Admission Mar 03, 2021 at 20:45 Date of Discharge Discharge Date: Mar 06, 2021 Discharge Diagnosis Hallucinations Inability to care for self Volume overload History of congestive heart failure Discharge Summary Discharge Physical Examination Allergies: Coded Allergies: No Known Drug Allergies (Unverified , 05/15/10) Vitals & I&Os Vital Signs Date Time Temp Pulse Resp B/P (MAP) Pulse Ox O2 Delivery O2 Flow Rate FiO2 03/06/21 11:02 36.6 70 20 138/80 93 Room Air General Appearance: Alert, Oriented X3 (Able to make decisions for self), Cooperative Respiratory: Clear to Auscultation Cardiovascular: Regular Rate Neuro: Normal Gait, Normal Speech, Strength at 5/5 X4 Ext Psych/Mental Status: Mental Status NL Hospital Course Was the Problem List Reviewed?: Yes Hospital course: Prince was admitted on 03/04/21 with complaints of hallucinations, BLE swelling, and depression. Cardiology was consulted and he was given an extra dose of Lasix along with restarting his home meds for HTN. Initial CXR showed cardiomegaly with mild edema, with improved of edema on f/u CXR. His plan for discharge to [facility] yesterday was complicated by a positive COVID test, which was overturned by a negative send-out COVID test. No acute issues during his hospital stay. Hallucinations improved slightly with continued complaint of hearing "crickets". BLE swelling improved slightly but still present. No complaints or concerns at time of discharge. He is being discharged to [facility] today due to concern for inability to care for self. Labs (last 24 hrs) Laboratory Tests 03/03/21 19:50: White Blood Count 7.6, Red Blood Count 4.67, Hemoglobin 13.7, Hematocrit 43, Mean Corpuscular Volume 92, Mean Corpuscular Hemoglobin 29, Mean Corpuscular Hemoglobin Concent 32, Red Cell Distribution Width 14.7H, Platelet Count 177, Mean Platelet Volume 10.3, Immature Granulocyte % (Auto) 0, Neutrophils (%) (Auto) 56, Lymphocytes (%) (Auto) 23, Monocytes (%) (Auto) 14H, Eosinophils (%) (Auto) 6, Basophils (%) (Auto) 1, Neutrophils # (Auto) 4.2, Lymphocytes # (Auto) 1.8, Monocytes # (Auto) 1.1H, Eosinophils # (Auto) 0.5H, Basophils # (Auto) 0.1, Immature Granulocyte # (Auto) 0.0, Prothrombin Time 13.3, INR Comment 1.0, Activated Partial Thromboplast Time 32, Sodium Level 142, Potassium Level 4.2, Chloride Level 102, Carbon Dioxide Level 27, Anion Gap 13, Blood Urea Nitrogen 21H, Creatinine 0.94, Estimat Glomerular Filtration Rate 82, BUN/Creatinine Ratio 22, Glucose Level 103, Calcium Level 9.2, Corrected Calcium 9.3, Magnesium Level 2.1, Total Bilirubin 0.7, Aspartate Amino Transf (AST/SGOT) 23, Alanine A minotransferase (ALT/SGPT) 18, Alkaline Phosphatase 45, Ammonia 64H, Troponin I < 0.028, B-Type Natriuretic Peptide 60.2, Total Protein 7.6, Albumin 3.9, Amylase Level 40, TSH Chaves Testing 3.15, Salicylates Level < 5.0L, Acetaminophen Level < 10L, Valproic Acid (Depakene) Level 61.9, Serum Alcohol < 10 03/03/21 19:58: Urine Color YELLOW, Urine Clarity CLEAR, Urine pH 7.0, Urine Specific [place] 1.015L, Urine Protein NEGATIVE, Urine Glucose (UA) NEGATIVE, Urine Ketones NEGATIVE, Urine Nitrite NEGATIVE, Urine Bilirubin NEGATIVE, Urine Urobilinogen 0.2, Urine Leukocyte Esterase NEGATIVE, Urine RBC (Auto) NEGATIVE, Urine RBC NONE, Urine WBC NONE, Urine Squamous Epithelial Cells RARE, Urine Crystals NONE, Urine Bacteria NEGATIVE, Urine Casts NONE, Urine Mucus NEGATIVE, Urine Culture Indicated NO, Urine Opiates Screen NEGATIVE, Urine Oxycodone Screen NEGATIVE, Urine Methadone Screen NEGATIVE, Urine Propoxyphene Screen NEGATIVE, Urine Barbiturates Screen NEGATIVE, Ur Tricyclic Antidepressants Screen NEGATIVE, Urine Phencyclidine Screen NEGATIVE, Urine Amphetamines Screen NEGATIVE, Urine Methamphetamines Screen NEGATIVE, Urine Benzodiazepines Screen POSITIVEH, Urine Cocaine Screen NEGATIVE, Urine Cannabinoids Screen NEGATIVE 03/04/21 05:38: White Blood Count 6.8, Red Blood Count 4.53, Hemoglobin 13.3, Hematocrit 42, Mean Corpuscular Volume 92, Mean Corpuscular Hemoglobin 29, Mean Corpuscular Hemoglobin Concent 32, Red Cell Distribution Width 15.0H, Platelet Count 167, Mean Platelet Volume 10.6, Immature Granulocyte % (Auto) 0, Neutrophils (%) (Auto) 55, Lymphocytes (%) (Auto) 23, Monocytes (%) (Auto) 15H, Eosinophils (%) (Auto) 6, Basophils (%) (Auto) 1, Neutrophils # (Auto) 3.7, Lymphocytes # (Auto) 1.6, Monocytes # (Auto) 1.0, Eosinophils # (Auto) 0.4H, Basophils # (Auto) 0.1, Immature Granulocyte # (Auto) 0.0, Sodium Level 140, Potassium Level 4.6, Chloride Level 103, Carbon Dioxide Level 26, Anion Gap 11, Blood Urea Nitrogen 20H, Creatinine 0.77, Estimat Glomerular Filtration Rate 103, BUN/Creatinine Ratio 26, Glucose Level 97, Calcium Level 8.7, Triglycerides Level 145, Cholesterol Level 130, LDL Cholesterol Direct 71, VLDL Cholesterol 29, HDL Cholesterol 42 03/04/21 17:14: SARS-CoV-2 RNA (RT-PCR) DetectedH 03/04/21 18:21: Coronavirus (COVID-19)(PCR) Negative 03/05/21 06:36: White Blood Count 7.1, Red Blood Count 4.74, Hemoglobin 14.2, Hematocrit 44, Mean Corpuscular Volume 92, Mean Corpuscular Hemoglobin 30, Mean Corpuscular Hemoglobin Concent 32, Red Cell Distribution Width 14.9H, Platelet Count 158, Mean Platelet Volume 10.0, Immature Granulocyte % (Auto) 0, Neutrophils (%) (Auto) 60, Lymphocytes (%) (Auto) 18, Monocytes (%) (Auto) 16H, Eosinophils (%) (Auto) 6, Basophils (%) (Auto) 1, Neutrophils # (Auto) 4.2, Lymphocytes # (Auto) 1.3, Monocytes # (Auto) 1.1H, Eosinophils # (Auto) 0.4H, Basophils # (Auto) 0.0, Immature Granulocyte # (Auto) 0.0, Sodium Level 141, Potassium Level 4.0, Chloride Level 101, Carbon Dioxide Level 26, Anion Gap 14, Blood Urea Nitrogen 19H, Creatinine 0.83, Estimat Glomerular Filtration Rate 95, BUN/Creatinine Ratio 23, Glucose Level 104, Calcium Level 9.0, Corrected Calcium 9.2, Total Bilirubin 1.1H, Aspartate Amino Transf (AST/SGOT) 24, Alanine Aminotransferase (ALT/SGPT) 21, Alkaline Phosphatase 46, Total Protein 7.5, Albumin 3.7 03/06/21 05:15: White Blood Count 7.5, Red Blood Count 4.66, Hemoglobin 13.8, Hematocrit 43, Mean Corpuscular Volume 93, Mean Corpuscular Hemoglobin 30, Mean Corpuscular Hemoglobin Concent 32, Red Cell Distribution Width 15.0H, Platelet Count 166, Mean Platelet Volume 10.6, Immature Granulocyte % (Auto) 0, Neutrophils (%) (Auto) 54, Lymphocytes (%) (Auto) 23, Monocytes (%) (Auto) 16H, Eosinophils (%) (Auto) 6, Basophils (%) (Auto) 1, Neutrophils # (Auto) 4.0, Lymphocytes # (Auto) 1.7, Monocytes # (Auto) 1.2H, Eosinophils # (Auto) 0.5H, Basophils # (Auto) 0.0, Immature Granulocyte # (Auto) 0.0, Sodium Level 139, Potassium Level 4.1, Chloride Level 101, Carbon Dioxide Level 27, Anion Gap 11, Blood Urea Nitrogen 22H, Creatinine 0.83, Estimat Glomerular Filtration Rate 95, BUN/Creatinine Ratio 27, Glucose Level 96, Calcium Level 8.5, Corrected Calcium 8.8, Total Bilirubin 1.3H, Aspartate Amino Transf (AST/SGOT) 21, Alanine Aminotransferase (ALT/SGPT) 19, Alkaline Phosphatase 43, Total Protein 7.0, Albumin 3.6 Pending Labs Laboratory Tests 03/03/21 19:50: White Blood Count 7.6, Red Blood Count 4.67, Hemoglobin 13.7, Hematocrit 43, Mean Corpuscular Volume 92, Mean Corpuscular Hemoglobin 29, Mean Corpuscular Hemoglobin Concent 32, Red Cell Distribution Width 14.7, Platelet Count 177, Mean Platelet Volume 10.3, Immature Granulocyte % (Auto) 0, Neutrophils (%) (Auto) 56, Lymphocytes (%) (Auto) 23, Monocytes (%) (Auto) 14, Eosinophils (%) (Auto) 6, Basophils (%) (Auto) 1, Neutrophils # (Auto) 4.2, Lymphocytes # (Auto) 1.8, Monocytes # (Auto) 1.1, Eosinophils # (Auto) 0.5, Basophils # (Auto) 0.1, Immature Granulocyte # (Auto) 0.0, Prothrombin Time 13.3, INR Comment 1.0, Activated Partial Thromboplast Time 32, Sodium Level 142, Potassium Level 4.2, Chloride Level 102, Carbon Dioxide Level 27, Anion Gap 13, Blood Urea Nitrogen 21, Creatinine 0.94, Estimat Glomerular Filtration Rate 82, BUN/Creatinine Ratio 22, Glucose Level 103, Calcium Level 9.2, Corrected Calcium 9.3, Magnesium Level 2.1, Total Bilirubin 0.7, Aspartate Amino Transf (AST/SGOT) 23, Alanine Aminotransferase (ALT/SGPT) 18, Alkaline Phosphatase 45, Ammonia 64, Troponin I < 0.028, B-Type Natriuretic Peptide 60.2, Total Protein 7.6, Albumin 3.9, A mylase Level 40, TSH Chaves Testing 3.15, Salicylates Level < 5.0, Acetaminophen Level < 10, Valproic Acid (Depakene) Level 61.9, Serum Alcohol < 10 03/03/21 19:58: Urine Color YELLOW, Urine Clarity CLEAR, Urine pH 7.0, Urine Specific [place] 1.015, Urine Protein NEGATIVE, Urine Glucose (UA) NEGATIVE, Urine Ketones NEGATIVE, Urine Nitrite NEGATIVE, Urine Bilirubin NEGATIVE, Urine Urobilinogen 0.2, Urine Leukocyte Esterase NEGATIVE, Urine RBC (Auto) NEGATIVE, Urine RBC NONE, Urine WBC NONE, Urine Squamous Epithelial Cells RARE, Urine Crystals NONE, Urine Bacteria NEGATIVE, Urine Casts NONE, Urine Mucus NEGATIVE, Urine Culture Indicated NO, Urine Opiates Screen NEGATIVE, Urine Oxycodone Screen NEGATIVE, Urine Methadone Screen NEGATIVE, Urine Propoxyphene Screen NEGATIVE, Urine Barbiturates Screen NEGATIVE, Ur Tricyclic Antidepressants Screen NEGATIVE, Urine Phencyclidine Screen NEGATIVE, Urine Amphetamines Screen NEGATIVE, Urine Methamphetamines Screen NEGATIVE, Urine Benzodiazepines Screen POSITIVE, Urine Cocaine Screen NEGATIVE, Urine Cannabinoids Screen NEGATIVE 03/04/21 05:38: White Blood Count 6.8, Red Blood Count 4.53, Hemoglobin 13.3, Hematocrit 42, Mean Corpuscular Volume 92, Mean Corpuscular Hemoglobin 29, Mean Corpuscular Hemoglobin Concent 32, Red Cell Distribution Width 15.0, Platelet Count 167, Mean Platelet Volume 10.6, Immature Granulocyte % (Auto) 0, Neutrophils (%) (Auto) 55, Lymphocytes (%) (Auto) 23, Monocytes (%) (Auto) 15, Eosinophils (%) (Auto) 6, Basophils (%) (Auto) 1, Neutrophils # (Auto) 3.7, Lymphocytes # (Auto) 1.6, Monocytes # (Auto) 1.0, Eosinophils # (Auto) 0.4, Basophils # (Auto) 0.1, Immature Granulocyte # (Auto) 0.0, Sodium Level 140, Potassium Level 4.6, Chloride Level 103, Carbon Dioxide Level 26, Anion Gap 11, Blood Urea Nitrogen 20, Creatinine 0.77, Estimat Glomerular Filtration Rate 103, BUN/Creatinine Ratio 26, Glucose Level 97, Calcium Level 8.7, Triglycerides Level 145, Cholesterol Level 130, LDL Cholesterol Direct 71, VLDL Cholesterol 29, HDL Cholesterol 42 03/04/21 17:14: SARS-CoV-2 RNA (RT-PCR) Detected 03/04/21 18:21: Coronavirus (COVID-19)(PCR) Negative 03/05/21 06:36: White Blood Count 7.1, Red Blood Count 4.74, Hemoglobin 14.2, Hematocrit 44, Mean Corpuscular Volume 92, Mean Corpuscular Hemoglobin 30, Mean Corpuscular Hemoglobin Concent 32, Red Cell Distribution Width 14.9, Platelet Count 158, Mean Platelet Volume 10.0, Immature Granulocyte % (Auto) 0, Neutrophils (%) (Auto) 60, Lymphocytes (%) (Auto) 18, Monocytes (%) (Auto) 16, Eosinophils (%) (Auto) 6, Basophils (%) (Auto) 1, Neutrophils # (Auto) 4.2, Lymphocytes # (Auto) 1.3, Monocytes # (Auto) 1.1, Eosinophils # (Auto) 0.4, Basophils # (Auto) 0.0, Immature Granulocyte # (Auto) 0.0, Sodium Level 141, Potassium Level 4.0, Chloride Level 101, Carbon Dioxide Level 26, Anion Gap 14, Blood Urea Nitrogen 19, Creatinine 0.83, Estimat Glomerular Filtration Rate 95, BUN/Creatinine Ratio 23, Glucose Level 104, Calcium Level 9.0, Corrected Calcium 9.2, Total Bilirubin 1.1, Aspartate Amino Transf (AST/SGOT) 24, Alanine Aminotransferase (ALT/SGPT) 21, Alkaline Phosphatase 46, Total Protein 7.5, Albumin 3.7 03/06/21 05:15: White Blood Count 7.5, Red Blood Count 4.66, Hemoglobin 13.8, Hematocrit 43, Mean Corpuscular Volume 93, Mean Corpuscular Hemoglobin 30, Mean Corpuscular Hemoglobin Concent 32, Red Cell Distribution Width 15.0, Platelet Count 166, Mean Platelet Volume 10.6, Immature Granulocyte % (Auto) 0, Neutrophils (%) (Auto) 54, Lymphocytes (%) (Auto) 23, Monocytes (%) (Auto) 16, Eosinophils (%) (Auto) 6, Basophils (%) (Auto) 1, Neutrophils # (Auto) 4.0, Lymphocytes # (Auto) 1.7, Monocytes # (Auto) 1.2, Eosinophils # (Auto) 0.5, Basophils # (Auto) 0.0, Immature Granulocyte # (Auto) 0.0, Sodium Level 139, Potassium Level 4.1, Chloride Level 101, Carbon Dioxide Level 27, Anion Gap 11, Blood Urea Nitrogen 22, Creatinine 0.83, Estimat Glomerular Filtration Rate 95, BUN/Creatinine Ratio 27, Glucose Level 96, Calcium Level 8.5, Corrected Calcium 8.8, Total Bilirubin 1.3, Aspartate Amino Transf (AST/SGOT) 21, Alanine Aminotransferase (ALT/SGPT) 19, Alkaline Phosphatase 43, Total Protein 7.0, Albumin 3.6 Discharge Home Medications: Active Scripts Active Reported Furosemide 20 Mg Tablet 20 Mg PO 0800,1600 Amlodipine Besylate 10 Mg Tablet 10 Mg PO DAILY Temazepam 15 Mg Capsule 15-30 Mg PO HS PRN Olanzapine 15 Mg Tablet 15 Mg PO HS K-Tab ER (Potassium Chloride) 10 Meq Tablet.er 10 Meq PO DAILY Lisinopril 40 Mg Tablet 40 Mg PO DAILY Levothyroxine Sodium 50 Mcg Tablet 50 Mcg PO DAILY Aspirin EC (Aspirin) 81 Mg Tablet.dr 81 Mg PO DAILY Atorvastatin Calcium 20 Mg Tablet 20 Mg PO HS Aripiprazole 15 Mg Tablet 15 Mg PO DAILY Divalproex Sodium ER (Divalproex Sodium) 500 Mg Tab.er.24h 500 Mg PO 0800,1400,2000 Instructions to patient/family Please see electronic discharge instructions given to patient. Diagnosis/Problems Diagnosis/Problems (1) Schizophrenia Status: Chronic (2) Unable to care for self Status: Acute (3) Edema Status: Acute (4) Primary hypertension (5) Acute on chronic diastolic heart failure TIESHA QUEVEDO DO Mar 06, 2021 06:02
[2021-03-06 06:07] LABS: ALBUMIN 3.6 GM/DL (3.2-4.5); BILIRUBIN,TOTAL 1.3 MG/DL (0.1-1.0); CALCIUM 8.5 MG/DL (8.5-10.1); CREATININE SERUM 0.83 MG/DL (0.60-1.30); POTASSIUM 4.1 MMOL/L (3.6-5.0)
[2021-03-06] MEDS: LEVOTHYROXINE 50 MCG (LEVOTHROID) TAB PO SCH (06:34)
[2021-03-06] MEDS: CATHETER FLUSH 10 ML SYR IV SCH (06:35)
[2021-03-06 07:45] VITALS: BP 138/80
[2021-03-06] MEDS: ASPIRIN E.C. 81 MG (ECOTRIN) TAB PO SCH (08:11)
[2021-03-06] MEDS: lisINopril 40 MG (PRINIVIL) TABLET PO SCH (08:11)
[2021-03-06] MEDS: ACETAMINOPHEN 325 MG TABLET PO PRN (08:11)
[2021-03-06] MEDS: KCL 10 MEQ TAB (MICRO K) PO SCH (08:11)
[2021-03-06] MEDS: FUROSEMIDE 20 MG (LASIX) TAB PO SCH (08:11)
[2021-03-06] MEDS: amLODIPine 10 MG (NORVASC) TAB PO SCH (08:11)
[2021-03-06] MEDS: DIVALPROEX EXT RELEASE 500 MG (DEPAKOTE ER) TAB PO SCH (08:15)
--- NOTE | 2021-03-06 09:07 | Cardiology Progress Note ---
Progress Note-Cardiology Events since last exam Date Seen by Provider: Mar 06, 2021 Time Seen by Provider: 09:03 Events since last exam I am following him for heart failure. His follow-up Covid test came back neg ative. He is now off isolation as he does not have Covid. His peripheral edema is improving. He denies chest pain, dyspnea, palpitations, or syncope. He is supposed to be transferred to the inpatient psychiatry unit at [facility] later this morning. Certain portions of this document may have been dictated utilizing voice recognition technology. Inherent to this technology, typographical and grammatical errors may exist. As much as I am diligent to identify and correct these mistakes, some errors may remain in the document. Vitals Last set of Vitals Signs Vital Signs 03/06/21 07:45 Temp 36.6 Pulse 70 Resp 20 B/P (MAP) 138/80 (99) Pulse Ox 93 O2 Delivery Room Air Labs Labs Laboratory Tests 03/06/21 05:15 Exam Vital Signs Vital Signs Date Time Temp Pulse Resp B/P (MAP) Pulse Ox O2 Delivery O2 Flow Rate FiO2 03/06/21 07:45 36.6 70 20 138/80 (99) 93 Room Air Physical Exam General: Alert. No acute distress. Eye: No xanthelasma. HENT: Normocephalic. Neck: Jugular venous pressure does not appear elevated. Respiratory: Lungs are clear to auscultation. Respirations are non-labored. Breath sounds are equal. Symmetrical chest wall expansion. Cardiovascular: Normal rate. Regular rhythm. 2/6 systolic ejection murmur. No gallop. 1+ bilateral pretibial edema, improved from admission. Gastrointestinal: Soft. Normal bowel sounds. Skin: Warm. Dry. Neurologic: Alert and oriented to person, place, time. Cranial nerves 3-11 grossly intact. Psychiatric: Cooperative. Appropriate mood & affect. Labs Laboratory Tests Test 03/06/21 05:15 Range/Units White Blood Count 7.5 4.3-11.0 10^3/uL Red Blood Count 4.66 4.30-5.52 10^6/uL Hemoglobin 13.8 13.3-17.7 g/dL Hematocrit 43 40-54 % Mean Corpuscular Volume 93 80-99 fL Mean Corpuscular Hemoglobin 30 25-34 pg Mean Corpuscular Hemoglobin Concent 32 32-36 g/dL Red Cell Distribution Width 15.0 H 10.0-14.5 % Platelet Count 166 130-400 10^3/uL Mean Platelet Volume 10.6 9.0-12.2 fL Immature Granulocyte % (Auto) 0 % Neutrophils (%) (Auto) 54 42-75 % Lymphocytes (%) (Auto) 23 12-44 % Monocytes (%) (Auto) 16 H 0-12 % Eosinophils (%) (Auto) 6 0-10 % Basophils (%) (Auto) 1 0-10 % Neutrophils # (Auto) 4.0 1.8-7.8 10^3/uL Lymphocytes # (Auto) 1.7 1.0-4.0 10^3/uL Monocytes # (Auto) 1.2 H 0.0-1.0 10^3/uL Eosinophils # (Auto) 0.5 H 0.0-0.3 10^3/uL Basophils # (Auto) 0.0 0.0-0.1 10^3/uL Immature Granulocyte # (Auto) 0.0 0.0-0.1 10^3/uL Sodium Level 139 135-145 MMOL/L Potassium Level 4.1 3.6-5.0 MMOL/L Chloride Level 101 98-107 MMOL/L Carbon Dioxide Level 27 21-32 MMOL/L Anion Gap 11 5-14 MMOL/L Blood Urea Nitrogen 22 H 7-18 MG/DL Creatinine 0.83 0.60-1.30 MG/DL Estimat Glomerular Filtration Rate 95 BUN/Creatinine Ratio 27 Glucose Level 96 70-105 MG/DL Calcium Level 8.5 8.5-10.1 MG/DL Corrected Calcium 8.8 8.5-10.1 MG/DL Total Bilirubin 1.3 H 0.1-1.0 MG/DL Aspartate Amino Transf (AST/SGOT) 21 5-34 U/L Alanine Aminotransferase (ALT/SGPT) 19 0-55 U/L Alkaline Phosphatase 43 40-136 U/L Total Protein 7.0 6.4-8.2 GM/DL Albumin 3.6 3.2-4.5 GM/DL Diagnosis/Problems Diagnosis/Problems (1) Acute on chronic diastolic heart failure Assessment & Plan: He had pulmonary congestion on his chest x-ray as well as peripheral edema. On the other hand, his BNP level was normal. Some of his peripheral edema could be due to chronic venous stasis as well as from amlodipine. His edema is improved. He should continue the same dose of furosemide he was taking at home. Since he will be going to an inpatient facility, he will not require a follow-up for heart failure within 1 week. I will plan to see him in the office in 1 month. (2) Primary hypertension Assessment & Plan: Blood pressure remains well controlled on his outpatient antihypertensive medication. If he continues to have peripheral edema, we may want to change his amlodipine to a different antihypertensive medication that will not cause peripheral edema. (3) Mixed hyperlipidemia Assessment & Plan: Continue statin medication. His LDL level from this admission is well controlled. (4) Edema Status: Acute Assessment & Plan: As above, some of this could just be chronic venous stasis due to his obesity and also some vasodilatory effect from amlodipine. We will proceed as above. (5) Obesity Assessment & Plan: He needs to work on weight loss. (6) Lab test positive for detection of COVID-19 virus Assessment & Plan: As above, his follow-up send out Covid test was negative. His initial Covid test may have been positive due to his recent vaccine booster. CHAGO HERNANDEZ JR, MD Mar 06, 2021 09:07
[2021-03-06 11:02] VITALS: BP 138/80
--- NOTE | 2021-03-06 13:36 | Progress Note ---
TONY MUNSON MED STUDENT 03/06/21 1336: Progress Note Hospital course: Prince was admitted on 03/04/21 with complaints of hallucinations, BLE swelling, and depression. Cardiology was consulted and he was given an extra dose of Lasix along with restarting his home meds for HTN. Initial CXR showed cardiomegaly with mild edema, with improved of edema on f/u CXR. His plan for discharge to [facility] yesterday was complicated by a positive COVID test, which was overturned by a negative send-out COVID test. No acute issues during his hospital stay. Hallucinations improved slightly with continued complaint of hearing "crickets". BLE swelling improved slightly but still present. No complaints or concerns at time of discharge. He is being discharged to [facility] today due to concern for inability to care for self. ROSANGELA QUEVEDO DO 03/06/212112: Supervisory-Addendum Brief Verification & Attestation Participated in pt care: history, MDM, physical Personally performed: exam, history, MDM, supervision of care Care discussed with: Medical Student Procedures: n/a Results interpretation: Verified all documentation Verification and Attestation of Medical Student E/M Service A medical student performed and documented this service in my presence. I reviewed and verified all information documented by the medical student and made modifications to such information, when appropriate. I personally performed the physical exam and medical decision making. Rosagnela Quevedo, Mar 06, 2021,21:13 TONY MUNSON MED STUDENT Mar 06, 2021 13:36 ROSANGELA QUEVEDO DO Mar 06, 2021 21:13
== END 2021-03-06 06:00 ==
LOC: EDUNIT# 19:27 → ER 19:29 → UNDOADMOB 20:45 → INTOOBSV 20:45 → 4TH 20:45 → UNDODISOB 03-06 13:08
PROVIDERS: ADMIT Internal Medicine; ATTEND Internal Medicine
DX: F20.9 Schizophrenia, unspecified (principal); E87.70 Fluid overload, unspecified; I50.9 Heart failure, unspecified; J30.9 Allergic rhinitis, unspecified; E78.00 Pure hypercholesterolemia, unspecified; I10 Essential (primary) hypertension; K21.9 Gastro-esophageal reflux disease without esophagitis; M19.90 Unspecified osteoarthritis, unspecified site; E03.9 Hypothyroidism, unspecified; F41.9 Anxiety disorder, unspecified; F32.A Depression, unspecified; Z87.891 Personal history of nicotine dependence; Z79.82 Long term (current) use of aspirin; Z79.899 Other long term (current) drug therapy; Z79.890 Hormone replacement therapy; Z82.3 Family history of stroke
CPT/HCPCS: 71045 ×2; 80048; 80053 ×3; 80061; 80164; 80306; 81000; 82140; 82150; 83735; 83880; 84443; 84484; 85025 ×4; 85610; 85730; 87635; 87636; 93005; 93041; 99284; G0378; G0480 ×3; 36415; 80320; 80329

== ENCOUNTER 2021-06-14 19:26 | Emergency (ER) | payer MEDICARE ==
[~2021-06-14] VITALS: Ht 170 cm; Wt 108.9 kg
[~2021-06-14 19:26] MED LIST changes: +AMLO-251 PO; +OLAN15TA35 PO; +TEMA15CA PO
[2021-06-14] MEDS ORDERED: DIVALPROEX 500 MG DELAYED RELEASE (DEPAKOTE) TAB PO STA (19:47)
[2021-06-14] MEDS ORDERED: DIVA500T PO (19:51)
--- NOTE | 2021-06-14 19:52 | ED General ---
General Chief Complaint: General Problems/Pain Stated Complaint: MEDICATION REFILL Nursing Triage Note: out of depakote, wants refill. (JOSE E PEREZ) History of Present Illness Date Seen by Provider: Jun 14, 2021 Time Seen by Provider: 19:40 Initial Comments 60-year-old male was discharged from [facility] 2 days ago, he has been taking Depakote 1500 mg at bedtime for schizophrenia. They discharged him with 2 days of medication and he has been unable to get the refills from [facility], family called clinic and walk in, his PCP is Dr. Martin, but she didn't prescribe the Depakote, so they would not refill it. The prescribing provider [facility] was Dr. Quevedo, but her office was closed today. Cautioned patient and family, that with it being a weekend, this is more likely to be an issue and they should always check medication supplies by Th or Fri. He denies any hallucinations, suicidal [place] or homicidal ideations. (JOSE E PEREZ) Allergies and Home Medications Allergies Coded Allergies: No Known Drug Allergies (Unverified , 05/15/10) Patient Home Medication List Home Medication List Reviewed: Yes (JOSE E PEREZ) Amlodipine Besylate (Amlodipine Besylate) 10 Mg Tablet, 10 MG PO DAILY, (Reported) Entered as Reported by: DINORA TA on 03/04/21 1140 Aripiprazole (Aripiprazole) 15 Mg Tablet, 15 MG PO DAILY, (Reported) Entered as Reported by: RUPERTO SELLERS on 01/02/211930 Aspirin (Aspirin EC) 81 Mg Tablet.dr, 81 MG PO DAILY, (Reported) Entered as Reported by: DINORA TA on 01/03/21 1352 Atorvastatin Calcium (Atorvastatin Calcium) 20 Mg Tablet, 20 MG PO HS, (Reported) Entered as Reported by: RUPERTO SELLERS on 01/02/211930 Divalproex Sodium (Divalproex Sodium ER) 500 Mg Tab.er.24h, 500 MG PO 0800,1400,1999, (Reported) Entered as Reported by: RUPERTO SELLERS on 01/02/211930 Divalproex Sodium (Depakote) 500 Mg Tablet.dr, 1,500 MG PO HS Prescribed by: JOSE E PEREZ on 06/14/211950 Furosemide (Furosemide) 20 Mg Tablet, 20 MG PO 0800,1600, (Reported) Entered as Reported by: DINORA TA on 03/04/21 114 Levothyroxine Sodium (Levothyroxine Sodium) 50 Mcg Tablet, 50 MCG PO DAILY, (Rep orted) Entered as Reported by: DINORA TA on 01/03/21 135 Lisinopril (Lisinopril) 40 Mg Tablet, 40 MG PO DAILY, (Reported) Entered as Reported by: DINORA TA on 01/03/21 135 Olanzapine (Olanzapine) 15 Mg Tablet, 15 MG PO HS, (Reported) Entered as Reported by: DINORA TA on 03/04/21 114 Potassium Chloride (K-Tab ER) 10 Meq Tablet.er, 10 MEQ PO DAILY, (Reported) Entered as Reported by: DINORA TA on 01/03/21 135 Temazepam (Temazepam) 15 Mg Capsule, 15-30 MG PO HS PRN for SLEEP, (Reported) Entered as Reported by: DINORA TA on 03/04/21 1140 Review of Systems Review of Systems Constitutional: no symptoms reported, see HPI Psychiatric/Neurological: See HPI, Emotional Problems, Other (Schizophrenia) (JOSE E PEREZ) All Other Systems Reviewed Negative Unless Noted: Yes (JOSE E PEREZ) Past Bnkfsxf-Bcwsgu-Mtfhlb Hx Immunizations Up To Date Tetanus Booster (TDap): Less than 5yrs First/Initial COVID19 Vaccinat: 2020 Second COVID19 Vaccination Ray: 2020 Third COVID19 Vaccination Date: COVID19 Vaccine Lean Sensei: NanoviJose Luis (JOSE E PEREZ) Seasonal Allergies Seasonal Allergies: Yes (JOSE E PEREZ) Past Medical History Surgery/Hospitalization HX: HTN, LOW THRYOID, HIGH CHOLESTEROL, PARANOID SCHIZOPHRENIA Surgeries: Yes Appendectomy Respiratory: Yes Sleep Apnea Currently Using CPAP: Yes Cardiac: Yes Cardiomyopathy, High Cholesterol, Hypertension Neurological: Yes (? MR ? ) Reproductive Disorders: No Genitourinary: No Gastrointestinal: Yes Gastroesophageal Reflux Musculoskeletal: Yes Arthritis Endocrine: Yes Hypothyroidsim HEENT: Yes Glaucoma Loss of Vision: Denies Hearing Impairment: Denies Cancer: No Psychosocial: Yes (SUICIDAL IDEATIONS; DELUSIONS/HALLUCINATIONS; ? MR ? ) Schizophrenia Integumentary: No Blood Disorders: No Adverse Reaction/Blood Tranf: No (ANAJOSE E Emanuel) Family Medical History Reviewed Nursing Family Hx (ANAJOSE E PARMAR) Heart Disease, Hypertension, Stroke HAD COVID-19 IN OCTOBER 2020--RECEIVED REGENERON INFUSION, NO HOSPITALIZATION, NO COMPLICATIONS (ANAJOSE E PARMAR) Physical Exam Vital Signs Vital Signs - First Documented 06/14/21 19:35 Temp 36.6 Pulse 76 Resp 16 B/P (MAP) 201/76 (117) Pulse Ox 96 (DENIS,TODD K DO) Vital Signs Capillary Refill : Less Than 3 Seconds (ANAJOSE E) Height, Weight, BMI Height: 5'7.00" Weight: 210lbs. 9.0oz. 95.909381ld; 37.00 BMI Method:Actual General Appearance: No Apparent Distress, WD/WN Respiratory: Chest Non Tender, Lungs Clear, Normal Breath Sounds Cardiovascular: Regular Rate, Rhythm, No Edema, No JVD, No Murmur, Normal Peripheral Pulses Neurologic/Psychiatric: Alert, Oriented x3, No Motor/Sensory Deficits, Normal Mood/Affect Skin: Normal Color, Warm/Dry (ANAJOSE E) Progress/Results/Core Measures Suspected Sepsis SIRS Temperature: Pulse: 76 Respiratory Rate: 16 Blood Pressure 201 /76 Mean: 117 (ANAJOSE E) Results/Orders Vital Signs/I&O 06/14/21 06/14/21 19:35 20:01 Temp 36.6 Pulse 76 Resp 16 B/P (MAP) 201/76 (117) 167/71 Pulse Ox 96 (DENIS,TODD K DO) Vital Signs/I&O Capillary Refill : Less Than 3 Seconds (ANAJOSE E) Blood Pressure Mean: 117 Departure Impression Primary Impression: Medication refill Additional Impression: Schizophrenia, chronic condition Disposition: HOME, SELF-CARE Condition: Stable Departure-Patient Inst. Decision time for Depature: 19:45 (JOSE E PEREZ) Referrals: [facility] (PCP/Family) Primary Care Physician Patient Instructions: Schizophrenia (DC) Add. Discharge Instructions: Call your primary care provider on Wednesday to get additional medications refilled as needed. Return to the emergency department for new, urgent healthcare needs. All discharge instructions reviewed with patient and/or family. Voiced understanding. Scripts Divalproex Sodium (Depakote) 500 Mg Tablet. 1500 MG PO HS, #30 TAB 0 Refills Prov: JOSE E PEREZ 06/14/21 ATTENDING PHYSICIAN NOTE: I WAS PHYSICALLY PRESENT ER PHYSICIAN WHEN THIS PATIENT WAS IN ER, BUT I WAS NOT INVOLVED IN ANY DECISION MAKING OR ANY CARE OF THIS PATIENT. (TODD BARRIOS DO) Copy Copies To 1: TIESHA QUEVEDO DO; DINORA MARTIN AMY ARNP Jun 14, 2021 19:51 TODD BARRIOS DO Jun 15, 2021 03:02
[2021-06-14 20:01] VITALS: BP 167/71
== END 2021-06-14 20:01 | disposition home or self-care (01) ==
LOC: ER 19:26
DX: F20.0 Paranoid schizophrenia (principal); I10 Essential (primary) hypertension; E78.00 Pure hypercholesterolemia, unspecified; E03.9 Hypothyroidism, unspecified; G47.30 Sleep apnea, unspecified; Z99.89 Dependence on other enabling machines and devices; Z79.890 Hormone replacement therapy; Z79.899 Other long term (current) drug therapy
CPT/HCPCS: 99283

== ENCOUNTER 2021-07-13 00:21 | Inpatient (IN) | payer MEDICARE ==
[2021-07-13] VITALS (7 sets, daily range): BP systolic 113–145; BP diastolic 66–88
[~2021-07-13] VITALS: Ht 170 cm; Wt 106.2 kg
[~2021-07-13 00:21] MED LIST changes: +DIVA500T PO
[2021-07-13] MEDS ORDERED: NOREPINEPHRINE 8 MG/250 ML 250 ML IV ONE (00:48)
[2021-07-13] MEDS ORDERED: PROPOFOL DRIP (ICU) 100 ML IV ONE (00:48)
[2021-07-13 00:55] LABS: ABG BASE EXCESS -11.7 MMOL/L (-2.5-2.5); ABG OXYGEN SATURATION 99 % (94-100); ABG PCO2 61 MMHG (35-45); ABG PO2 415 MMHG (79-93); ABG TCO2 18.7 MMOL/L (21.0-31.0); ALLENS TEST YES-POS
[2021-07-13 00:56] LABS: PATIENT TEMP 35.6; VENTILATOR YES
[2021-07-13 00:57] LABS: ABG PH 7.07 (7.37-7.43)
[2021-07-13] MEDS ORDERED: LACTATED RINGERS 1,000 ML IV ONE (00:58)
[2021-07-13 01:28] LABS: BASOPHILS % (AUTO) 0 % (0-10); HEMOGLOBIN 13.6 g/dL (13.3-17.7); MONOCYTES % (AUTO) 6 % (0-12)
[2021-07-13 01:30] LABS: EOSINOPHILS # (AUTO) 0.2 10^3/uL (0.0-0.3); EOSINOPHILS % (AUTO) 2 % (0-10); HEMATOCRIT 44 % (40-54); LYMPHOCYTES # (AUTO) 3.6 10^3/uL (1.0-4.0); LYMPHOCYTES % (AUTO) 43 % (12-44); MEAN CORPUSCULAR HEMOGLOBIN 31 pg (25-34); MEAN CORPUSCULAR HGB CONC 31 g/dL (32-36); MEAN CORPUSCULAR VOLUME 99 fL (80-99); MEAN PLATELET VOLUME 11.1 fL (9.0-12.2); MONOCYTES # (AUTO) 0.5 10^3/uL (0.0-1.0); NEUTROPHILS # (AUTO) 3.9 10^3/uL (1.8-7.8); NEUTROPHILS % (AUTO) 47 % (42-75); PLATELET COUNT 132 10^3/uL (130-400); WHITE BLOOD COUNT 8.5 10^3/uL (4.3-11.0)
[2021-07-13 01:39] LABS: ALBUMIN 3.1 GM/DL (3.2-4.5)
[2021-07-13 01:40] LABS: CHLORIDE 104 MMOL/L (98-107); POTASSIUM 3.3 MMOL/L (3.6-5.0); SODIUM 144 MMOL/L (135-145)
[2021-07-13 01:41] LABS: CALCIUM 8.5 MG/DL (8.5-10.1)
[2021-07-13 01:42] LABS: GLUCOSE 219 MG/DL (70-105); TOTAL PROTEIN 6.1 GM/DL (6.4-8.2)
[2021-07-13 01:43] LABS: CARBON DIOXIDE 18 MMOL/L (21-32)
[2021-07-13 01:44] LABS: BILIRUBIN,TOTAL 0.9 MG/DL (0.1-1.0)
[2021-07-13 01:46] LABS: ALKALINE PHOSPHATASE 54 U/L (40-136); CREATININE SERUM 1.36 MG/DL (0.60-1.30); GFR ESTIMATED 60
[2021-07-13 01:47] LABS: BUN/CREATININE RATIO 15
[2021-07-13 01:49] LABS: ALANINE AMINOTRANSFERASE 45 U/L (0-55)
--- NOTE | 2021-07-13 01:51 | ED CPR ---
HPI-CPR General Chief Complaint: Code Blue Stated Complaint: CODE BLUE Nursing Triage Note: PT TO ROOM BY [facility]. PT FOUND DOWN IN HALLWAY OF HIS APARTMENT BUILDING. EMS REPORTS BYSTANDER BEGAN CPR AT 2349. PT ARRIVED AT 0024. CPR IN PROGRESS. IO INSERTERD IN RIGHT TIBIA BY EMS Source of Information: EMS Exam Limitations: Physical Impairments History of Present Illness Date Seen by Provider: Jul 13, 2021 Time Seen by Provider: 00:24 Initial Comments Arrives via EMS with CPR in progress. Downtime approximately 11:49 PM. Apparently the patient was heard to collapse in the hallway at his apartment building. EMS was called and bystander CPR was initiated after he was found to be breathless and no pulse. EMS arrived and continued CPR. In the field, no return of circulation was obtained. Patient did have multiple rounds of CPR and 4 mg of epinephrine during their part of care. Arrives in PEA with no pulse. I gel in place for ventilation. CPR continued. EMS reports that in his house it did appear that he was cooking food as there was some spilled. Otherwise no history available currently. Initial Complaints: Collapsed, Found Unresponsive Witnessed Arrest: No Bystander CPR: Yes Down-Time Before ACLS: Approximately 10 minutes Paramedics Initial Findings: PEA Tachycardia Pre Hospital Treatment: Bag Valve Mask, CPR/Thumper, Oxygen, Epinephrine (mg) (4) Allergies and Home Medications Allergies Coded Allergies: No Known Drug Allergies (Unverified , 05/15/10) Patient Home Medication List Home Medication List Reviewed: Yes Amlodipine Besylate (Amlodipine Besylate) 10 Mg Tablet, 10 MG PO DAILY, (Reported) Entered as Reported by: DINORA TA on 03/04/21 1140 Aripiprazole (Aripiprazole) 15 Mg Tablet, 15 MG PO DAILY, (Reported) Entered as Reported by: RUPERTO SELLERS on 01/02/211930 Aspirin (Aspirin EC) 81 Mg Tablet.dr, 81 MG PO DAILY, (Reported) Entered as Reported by: DINORA TA on 01/03/21 1352 Atorvastatin Calcium (Atorvastatin Calcium) 20 Mg Tablet, 20 MG PO HS, (Reported) Entered as Reported by: RUPERTO SELLERS on 01/02/211930 Divalproex Sodium (Divalproex Sodium ER) 500 Mg Tab.er.24h, 500 MG PO 0800,1400,1999, (Reported) Entered as Reported by: RUPERTO SELLERS on 01/02/211930 Divalproex Sodium (Depakote) 500 Mg Tablet.dr, 1,500 MG PO HS Prescribed by: JOSE E PEREZ on 06/14/211950 Furosemide (Furosemide) 20 Mg Tablet, 20 MG PO 0800,1600, (Reported) Entered as Reported by: DINORA TA on 03/04/21 1140 Levothyroxine Sodium (Levothyroxine Sodium) 50 Mcg Tablet, 50 MCG PO DAILY, (Reported) Entered as Reported by: DINORA TA on 01/03/21 135 Lisinopril (Lisinopril) 40 Mg Tablet, 40 MG PO DAILY, (Reported) Entered as Reported by: DINORA TA on 01/03/21 135 Olanzapine (Olanzapine) 15 Mg Tablet, 15 MG PO HS, (Reported) Entered as Reported by: DINORA TA on 03/04/21 114 Potassium Chloride (K-Tab ER) 10 Meq Tablet.er, 10 MEQ PO DAILY, (Reported) Entered as Reported by: DINORA TA on 01/03/21 135 Temazepam (Temazepam) 15 Mg Capsule, 15-30 MG PO HS PRN for SLEEP, (Reported) Entered as Reported by: DINORA TA on 03/04/21 1140 Review of Systems Review of Systems Constitutional: no symptoms reported Other Comments Patient unresponsive with CPR in progress. Unable to obtain review of systems due to clinical condition. Past Qsxkcmb-Sqhjmr-Dwxlsa Hx Immunizations Up To Date Tetanus Booster (TDap): Less than 5yrs First/Initial COVID19 Vaccinat: 2020 Second COVID19 Vaccination Ray: 2020 Third COVID19 Vaccination Date: Seasonal Allergies Seasonal Allergies: Yes Past Medical History Surgery/Hospitalization HX: HTN, LOW THRYOID, HIGH CHOLESTEROL, PARANOID SCHIZOPHRENIA Surgeries: Yes Appendectomy Respiratory: Yes Sleep Apnea Currently Using CPAP: Yes Cardiac: Yes Cardiomyopathy, High Cholesterol, Hypertension Neurological: Yes (? MR ? ) Reproductive Disorders: No Genitourinary: No Gastrointestinal: Yes Gastroesophageal Reflux Musculoskeletal: Yes Arthritis Endocrine: Yes Hypothyroidsim HEENT: Yes Glaucoma Loss of Vision: Denies Hearing Impairment: Denies Cancer: No Psychosocial: Yes (SUICIDAL IDEATIONS; DELUSIONS/HALLUCINATIONS; ? MR ? ) Schizophrenia Integumentary: No Blood Disorders: No Adverse Reaction/Blood Tranf: No Family Medical History Reviewed Nursing Family Hx Heart Disease, Hypertension, Stroke Social, medical and surgical history via old records. Patient unresponsive and unable to give information Physical Exam Vital Signs Vital Signs - First Documented 07/13/21 07/13/21 00:21 03:04 Temp 35.8 Pulse 123 Resp 29 B/P (MAP) 167/94 (118) Pulse Ox 79 O2 Delivery Ambu Bag FiO2 100 Capillary Refill : Height, Weight, BMI Height: 5'7.00" Weight: 210lbs. 9.0oz. 95.840078xc; 37.00 BMI Method:Actual General Appearance: Obese, Severe Distress HEENT: PERRL/EOMI, Other (Large amount of debris including large chunks of meat noted in the pharynx on intubation. This was removed with forceps.) Neck: Supple; No Lymphadenopathy (L), No Lymphadenopathy (R) Respiratory: Crackles (Bilateral after intubation), Other (Arrives apneic and ventilation via bag connected to supraglottic device.) Cardiovascular: No Murmur, Other (Initially pulseless with tachycardic PEA. Tachycardic with weak pulses after return of spontaneous circulation) Gastrointestinal: Soft, Distended Extremity: Pedal Edema, Pelvis Stable Neurologic/Psychiatric: Other (Unresponsive with CPR in progress on arrival. Did take spontaneous breaths after clearance of airway and intubation but otherwise no spontaneous movement noted) Skin: Cool, Pallor Focused Exam Lactate Level 07/13/21 03:17: Lactic Acid Level Laboratory Tests Test 07/13/21 03:17 Procedures/Interventions Lumen: triple Central Line Procedure: betadine prep, sterile drapes applied, sterile dressing applied Position: internal jugular (R) Complications: none Post Position: sutured, good blood return, position confirmed w/ CXR Placed via ultrasound guidance to the right IJ using Seldinger technique. Difficult stick due to body habitus but was able to attain line with good draw and flush. Confirmed with chest x-ray. Date of ETT Placement: Jul 13, 2021 Time of ETT Placement: 00:35 Tube Size: 7.5 Positive End Tide CO2: Yes Breath Sounds after Intubation: bilateral-equal Intubation Complications: apparent aspiration Post Intubation Xray: Yes Tube in good position On initiation of intubation, large amount of debris noted in the posterior pharynx. This was cleared with suction to minimal extent and then Janes forceps were used to remove large chunks of meat from the throat. We were able to see vocal cords afterwards and patient was intubated via Alex vision scope with 7.5 tube. Patient did have spontaneous respirations through tube. Placed on vent after with airway suctioning by RT. Vent settings tidal volume 450, rate 14, PEEP of 5 at 100% FiO2. Progress/Results/Core Measures Results/Orders Lab Results Laboratory Tests Test 07/13/21 00:34 07/13/21 00:45 07/13/21 01:22 07/13/21 03:08 Range/Units Glucometer 270 H 70-110 MG/DL Blood Gas Puncture Site LEFT RADIAL RIGHT RADIAL Blood Gas Patient Temperature 35.6 36.2 Arterial Blood pH 7.07 *L 7.24 *L 7.37-7.43 Arterial Blood Partial Pressure CO2 61 H 61 H 35-45 MMHG Arterial Blood Partial Pressure O2 415 H 100 H 79-93 MMHG Arterial Blood HCO3 17 *L 25 23-27 MMOL/L Arterial Blood Total CO2 18.7 L 26.9 21.0-31.0 MMOL/L Arterial Blood Oxygen Saturation 99 97 94-100 % Arterial Blood Base Excess -11.7 L -1.4 -2.5-2.5 MMOL/L Pablo Test YES-POS YES-POS Blood Gas Ventilator Setting YES YES Blood Gas Inspired Oxygen UNKNOWN 100% White Blood Count 8.5 4.3-11.0 10^3/uL Red Blood Count 4.46 4.30-5.52 10^6/uL Hemoglobin 13.6 13.3-17.7 g/dL Hematocrit 44 40-54 % Mean Corpuscular Volume 99 80-99 fL Mean Corpuscular Hemoglobin 31 25-34 pg Mean Corpuscular Hemoglobin Concent 31 L 32-36 g/dL Red Cell Distribution Width 17.9 H 10.0-14.5 % Platelet Count 132 130-400 10^3/uL Mean Platelet Volume 11.1 9.0-12.2 fL Immature Granulocyte % (Auto) 2 % Neutrophils (%) (Auto) 47 42-75 % Lymphocytes (%) (Auto) 43 12-44 % Monocytes (%) (Auto) 6 0-12 % Eosinophils (%) (Auto) 2 0-10 % Basophils (%) (Auto) 0 0-10 % Neutrophils # (Auto) 3.9 1.8-7.8 10^3/uL Lymphocytes # (Auto) 3.6 1.0-4.0 10^3/uL Monocytes # (Auto) 0.5 0.0-1.0 10^3/uL Eosinophils # (Auto) 0.2 0.0-0.3 10^3/uL Basophils # (Auto) 0.0 0.0-0.1 10^3/uL Immature Granulocyte # (Auto) 0.2 H 0.0-0.1 10^3/uL Neutrophils % (Manual) 37 % Lymphocytes % (Manual) 53 % Monocytes % (Manual) 4 % Eosinophils % (Manual) 5 % Band Neutrophils 1 % Percent Immature Platelet Fraction 3.9 0.0-7.6 % Blood Morphology Comment NORMAL Sodium Level 144 135-145 MMOL/L Potassium Level 3.3 L 3.6-5.0 MMOL/L Chloride Level 104 98-107 MMOL/L Carbon Dioxide Level 18 L 21-32 MMOL/L Anion Gap 22 H 5-14 MMOL/L Blood Urea Nitrogen 20 H 7-18 MG/DL Creatinine 1.36 H 0.60-1.30 MG/DL Estimat Glomerular Filtration Rate 60 BUN/Creatinine Ratio 15 Glucose Level 219 H 70-105 MG/DL Calcium Level 8.5 8.5-10.1 MG/DL Corrected Calcium 9.2 8.5-10.1 MG/DL Magnesium Level 2.2 1.6-2.4 MG/DL Total Bilirubin 0.9 0.1-1.0 MG/DL Aspartate Amino Transf (AST/SGOT) 59 H 5-34 U/L Alanine Aminotransferase (ALT/SGPT) 45 0-55 U/L Alkaline Phosphatase 54 40-136 U/L Troponin I < 0.028 <0.028 NG/ML Total Protein 6.1 L 6.4-8.2 GM/DL Albumin 3.1 L 3.2-4.5 GM/DL Test 07/13/21 03:17 Range/Units My Orders Orders - OTILIA RIVERA MD Chest 1 View, Ap/Pa Only (07/13/21 ) Arterial Blood Gas (07/13/21 00:49) Propofol Drip (Icu) (Diprivan Drip (Icu) (07/13/21 00:48) Norepinephrine 8 Mg/250 Ml (Norepinephri (07/13/21 00:48) Cbc And Manual Diff (07/13/21 00:51) Comprehensive Metabolic Panel (07/13/21 00:51) Troponin I [place] (07/13/21 00:51) Magnesium (07/13/21 00:52) Lactated Ringers (Lr 1000 Ml Iv Solution (07/13/21 00:58) Arterial Blood Gas (07/13/21 03:03) Lactic Acid Analyzer (07/13/21 03:03) Troponin I [place] (07/13/21 03:09) Sputum Culture (07/13/21 03:09) Ekg Tracing (07/13/21 03:09) Enoxaparin Injection (Lovenox Injection) (07/13/21 03:30) Aspirin Chewable Tablet (Baby Aspirin Ch (07/13/21 03:30) Protime With Inr (07/13/21 03:17) Partial Thromboplastin Time (07/13/21 03:17) Medications Given in ED Current Medications Medications Dose Ordered Sig/Ankit Route Start Time Stop Time Status Last Admin Dose Admin Lactated Ringer's 1,000 ml @ ud STK-MED ONCE IV 07/13/21 00:58 07/13/21 01:01 DC 07/13/21 01:04 150 MLS/HR Norepinephrine Bitartrate 250 ml @ ud STK-MED ONCE IV 07/13/21 00:48 07/13/21 00:52 DC 07/13/21 01:06 14.2 MLS/HR Propofol 100 ml @ ud STK-MED ONCE IV 07/13/21 00:48 07/13/21 00:52 DC 07/13/21 01:05 13 MLS/HR Vital Signs/I&O 07/13/21 07/13/21 07/13/21 07/13/21 00:21 01:05 01:06 03:04 Temp 35.8 Pulse 123 97 97 Resp 29 B/P (MAP) 167/94 (118) 100/58 100/58 Pulse Ox 79 O2 Delivery Ambu Bag FiO2 100 Blood Pressure Mean: 72 Progress Progress Note : Progress Note Seen and evaluated on arrival by EMS with CPR in progress. No pulse on arrival and CPR continued. Epinephrine 1 mg IV initiated with CPR continued. Pulse noted at 0029, approximately 5 minutes after arrival. We then proceeded to intubation. I gel removed and [id number] initiated. Debris noted in the posterior pharynx on suctioning and was removed. Initial review with Alex vision scope showed large amount of debris. Janes forceps were used to remove large amount of meat from the posterior pharynx and airway was cleared. Intubation then proceeded and was completed. Patient hypotensive. Postintubation sedation with Versed 5 mg IV and fentanyl 50 mcg IV. Orders for propofol drip and norepinephrine. Warmed IV fluids were initiated. NG tube and Salas catheter ordered. We did proceed to central line and that was placed at 0053. This was done via ultrasound guidance. See note for details. I did have conversation with the family afterwards and discussed critical nature of the patient. We will continue norepinephrine. Chest x-ray was reviewed and showed all lines in good position. Okay to use central line. We will continue IV fluids judiciously with LR at 150 mL an hour. ABG reviewed. pH shows acidosis but likely secondary to respiratory failure and I think this will clear with appropriate ventilation. 0155: We have adjusted norepinephrine up to 0.2 mcg/kg per due to persistent hypotension. Family is at bedside. We have reviewed his tory for the patient and talk with family regarding patient history. He does not smoke, drink or do drugs. Does have history of heart disease as well as lung disorder including asthma. Patient does suffer from severe schizophrenia. We will proceed with admission to the ICU. This chart does include daylight savings time clocked forward at 2 AM. 0326: I did discuss the case with the eICU team and full including all pertinent aspects of the case and management and did discuss findings of new EKG that shows some ST elevation. We have added troponin, lactic acid and repeat blood gas as well as coagulation studies to his labs. I did discuss the case with Dr. Horta at 0312 including EKG findings and initial troponin results with repeat troponin pending. We have added Lovenox 100 mg subcu now and aspirin 324 mg via NG tube. Sputum culture done. I did discuss the case with Dr. Arauz at 0322 accepts patient for admission to the ICU, inpatient status, critical condition. Family have been in to see patient a nd understand the critical nature of the patient. Patient currently with blood pressure low 100s systolic and heart rate in the 80s with O2 saturation 97 to 98% on rate 14, tidal volume 450, PEEP of 5 and FiO2 70%. We will increase rate to 18 due to new ABG results. Patient to ICU. Patient with cardiac arrest status post food asphyxiation. I do not believe he has septic event or infection currently. Patient with findings of type II NH likely due to sustained hypoxia from food asphyxiation. Initial ECG Impression Date: Jul 13, 2021 Initial ECG Impression Time: 00:48 Initial ECG Rate: 78 Initial ECG Rhythm: A Fib/Flutter Comment Atrial fibrillation with right bundle branch block. Rightward axis. No evidence of ST elevation NH. Change from previous of 03/03/2021. Interpreted by me. EKG : EKG Time: 01:59 Rate: 83 Comment Sinus rhythm with incomplete right bundle branch block. Normal axis. Question mild ST elevation lateral leads V3 through V5 and possible anterior leads in 3 and aVF. This represents change from earlier indicating myocardial injury likely secondary to sustained hypoxia from cardiac arrest. Discussed with Dr. Horta. Diagnostic Imaging Diagonstic Imaging: Xray Plain Films/CT/US/NM/MRI: chest Comments Central line, NG tube and ET tube in good position. Pulmonary vascular prominence noted. No obvious infiltrate. Enlarged cardiac silhouette. Reviewed: Reviewed by Me Critical Care Note Critical Care Start Time: 00:24 Stop Time: 03:31 Total Time (minutes) 60 Progress Critical care time excludes separately billable events of intubation and central line placement. This would include care, management, reevaluation, discussion with family and consultants as well as admitting physician. See progress note for details. Departure Communication (Admissions) Time/Spoke to Admitting Phy: 03:22 Time/Spoke to Consulting Phy: 03:01 Impression Primary Impression: Cardiopulmonary arrest with successful resuscitation Additional Impressions: Food in larynx causing asphyxiation, initial encounter Non-ST elevation NH (NSTEMI) Nonischemic nontraumatic myocardial injury Disposition: ADMITTED INPATIENT Condition: Critical Admissions Decision to Admit Reason: Admit from ER (General) Decision to Admit/Date: Jul 13, 2021 Time/Decision to Admit Time: 03:01 Departure-Patient Inst. Referrals: [facility] (PCP/Family) Primary Care Physician OTILIA RIVERA MD Jul 13, 2021 01:51
[2021-07-13 03:01] LABS: BAND NEUTROPHILS 1 %; EOSINOPHILS % (MANUAL) 5 %; LYMPHOCYTES % (MANUAL) 53 %; MONOCYTES % (MANUAL) 4 %; NEUTROPHILS % (MANUAL) 37 %; RBC MORPH NORMAL
[2021-07-13 03:14] LABS: ABG BASE EXCESS -1.4 MMOL/L (-2.5-2.5); ABG OXYGEN SATURATION 97 % (94-100); ABG PCO2 61 MMHG (35-45); ABG PO2 100 MMHG (79-93); ABG TCO2 26.9 MMOL/L (21.0-31.0); ALLENS TEST YES-POS; INSPIRED O2 100%; VENTILATOR YES
[2021-07-13 03:15] LABS: ABG PH 7.24 (7.37-7.43); PATIENT TEMP 36.2
[2021-07-13] MEDS ORDERED: ASPIRIN 81 MG CHEW (CHILDREN'S ASA) NG ONE (03:30)
[2021-07-13] MEDS ORDERED: ENOXAPARIN 100 MG/1 ML (LOVENOX) SYR SC ONE (03:30)
[2021-07-13 03:35] LABS: PROTHROMBIN TIME PATIENT 13.4 SEC (12.2-14.7)
[2021-07-13] MEDS ORDERED: EPINEPHrine 0.1 MG/ML 10 ML (HOSPIRA) SYR IV ONE (04:00)
[2021-07-13] MEDS ORDERED: NS IV 1000 ML 1,000 ML ONE (04:31)
[2021-07-13 04:39] LABS: ABG BASE EXCESS 1.2 MMOL/L (-2.5-2.5); ABG OXYGEN SATURATION 96 % (94-100); ABG PCO2 56 MMHG (35-45); ABG PO2 80 MMHG (79-93); ABG TCO2 28.8 MMOL/L (21.0-31.0); ALLENS TEST YES-POS; INSPIRED O2 40%; PATIENT TEMP 36.4; VENTILATOR YES
[2021-07-13 05:07] LABS: BASOPHILS % (AUTO) 0 % (0-10); EOSINOPHILS # (AUTO) 0.1 10^3/uL (0.0-0.3); EOSINOPHILS % (AUTO) 1 % (0-10); HEMATOCRIT 47 % (40-54); HEMOGLOBIN 15.1 g/dL (13.3-17.7); LYMPHOCYTES # (AUTO) 2.2 10^3/uL (1.0-4.0); LYMPHOCYTES % (AUTO) 19 % (12-44); MEAN CORPUSCULAR HEMOGLOBIN 30 pg (25-34); MEAN CORPUSCULAR HGB CONC 32 g/dL (32-36); MEAN CORPUSCULAR VOLUME 95 fL (80-99); MEAN PLATELET VOLUME 9.9 fL (9.0-12.2); MONOCYTES # (AUTO) 2.1 10^3/uL (0.0-1.0); MONOCYTES % (AUTO) 18 % (0-12); NEUTROPHILS # (AUTO) 7.2 10^3/uL (1.8-7.8); NEUTROPHILS % (AUTO) 62 % (42-75); PLATELET COUNT 169 10^3/uL (130-400); WHITE BLOOD COUNT 11.7 10^3/uL (4.3-11.0)
[2021-07-13 05:18] LABS: ALBUMIN 3.4 GM/DL (3.2-4.5)
[2021-07-13 05:19] LABS: POTASSIUM 3.4 MMOL/L (3.6-5.0)
[2021-07-13 05:20] LABS: CALCIUM 8.6 MG/DL (8.5-10.1)
[2021-07-13 05:21] LABS: TOTAL PROTEIN 6.8 GM/DL (6.4-8.2)
[2021-07-13 05:23] LABS: BILIRUBIN,TOTAL 1.4 MG/DL (0.1-1.0)
[2021-07-13 05:25] LABS: CREATININE SERUM 1.02 MG/DL (0.60-1.30)
[2021-07-13] MEDS: LACTATED RINGERS 1,000 ML IV SCH ×5 (05:39→22:59)
[2021-07-13] MEDS: NOREPINEPHRINE 8 MG/250 ML 250 ML IV SCH ×2 (05:39→06:19)
[2021-07-13] MEDS: KCL 20 MEQ TAB (K-DUR) PO SCH (05:40)
[2021-07-13] MEDS: MAGNESIUM 1 GM/100 ML IVPB 100 ML IV SCH (05:40)
[2021-07-13] MEDS: inSUlin ASPART (NovoLOG) 1 UNIT/0.01 ML (CHARGE PER UNIT) SC SCH ×4 (05:40→23:01)
[2021-07-13] MEDS: POTASSIUM CL 10MEQ/50ML IVPB 50 ML IV SCH ×3 (05:40→06:44)
--- NOTE | 2021-07-13 06:21 | Diagnostic Imaging Report ---
EXAMINATION: Chest 1 view HISTORY: POST CODE BLUE COMPARISON: 03/05/2021 FINDINGS: Heart size and pulmonary vasculature are normal. Diffuse interstitial opacities are seen throughout both lungs. No pleural effusion or pneumothorax. Interval placement of a right IJ central line tip projecting over the distal SVC. Endotracheal tube is present above the pietro. Enteric catheter is present coursing below the diaphragm. Degenerative changes of the thoracic spine. Osseous structures are otherwise intact. IMPRESSION: 1. Diffuse interstitial opacities throughout both lungs which can be seen with pulmonary edema, atypical infection, or atelectasis. 2. Medical support lines and tubes in appropriate position. Dictated by: Dictated on workstation # [id number]
--- NOTE | 2021-07-13 06:27 | History & Physical-Hospitalist ---
History of Present Illness HPI/Chief Complaint Chief complaint: Respiratory failure due to airway obstruction History of present illness: This is a 60-year-old white male [facility] then on my service at the longterm until discharged home 6 weeks ago who presented to the ER after found down in the hallway of his apartment building unresponsive. Apparently CPR was started by a bystander and patient was brought in and during intubation was found to have a large amount of steak obstructing his airway and that was removed by Dr. Armstrong but he was without significant oxygen supply for 40 minutes. Currently he is doing well on the ventilator and vitals remained stable. Source: RN/MD, old records Exam Limitations: clinical condition Date Seen 07/13/21 Time Seen by a Provider: 11:30 Attending Physician Rosangela Arauz Richard P Dpm Referring Physician Date of Admission Jul 13, 2021 at 03:25 Home Medications & Allergies Home Medications Reviewed patient Home Medication Reconciliation performed by pharmacy medication reconciliations preparatory technician and/or nursing. Patients Allergies have been reviewed. Allergies Allergies Coded Allergies No Known Drug Allergies (Unverified05/15/10) Past Lwcjsso-Enezww-Lmtpyw Hx Patient Social History Marrital Status: Employed/Student: unemployed Smoking Status: Former Smoker Immunizations Up To Date Date of Influenza Vaccine: Jan 31, 2021 First/Initial COVID19 Vaccinat: 2020 Second COVID19 Vaccination Ray: 2020 Tetanus Booster (TDap): Unknown Date of Pneumonia Vaccine: Feb 01, 2012 Seasonal Allergies Seasonal Allergies: Yes Current Status Communicates: Does Not Communicate Primary Language: Norwegian Preferred Spoken Language: Norwegian Is interpretation needed?: No Past Medical History Surgeries: Appendectomy Sleep Apnea Currently Using CPAP: Yes Cardiomyopathy, High Cholesterol, Hypertension Gastroesophageal Reflux Arthritis Hypothyroidsim Glaucoma Loss of Vision: Denies Hearing Impairment: Denies Schizophrenia Blood Disorders: No Adverse Reaction/Blood Tranf: No Family Medical History Reviewed Nursing Family Hx Heart Disease, Hypertension, Stroke Social, medical and surgical history via old records. Patient unresponsive and unable to give information Review of Systems ROS-Unable to Obtain: Patient intubated Constitutional: see HPI Physical Exam Physical Exam Vital Signs Vital Signs - First Documented 07/13/21 07/13/21 07/13/21 00:21 03:04 04:00 Temp 35.8 Pulse 123 Resp 29 B/P (MAP) 167/94 (118) Pulse Ox 79 O2 Delivery Ambu Bag O2 Flow Rate 100.00 FiO2 100 Capillary Refill : Less Than 3 Seconds Height, Weight, BMI Height: 5'7.00" Weight: 210lbs. 9.0oz. 95.287598ze; 37.00 BMI Method:Actual General Appearance: No Apparent Distress, Chronically ill, Other (Sedated and intubated) Respiratory: Lungs Clear, Normal Breath Sounds Cardiovascular: Regular Rate, Rhythm Results Results/Procedures Labs Laboratory Tests 07/13/21 01:22 07/13/21 04:59 07/14/21 02:44 Patient resulted labs reviewed. Assessment/Plan Admission Diagnosis Assessment: Found down in the hallway of his apartment building status post CPR by bystander Presumed anoxic brain injury due to 40 minutes without oxygen Steak obstructing airway completely removed by ER provider Schizophrenia Cardiomyopathy Hypertension Hyperlipidemia Plan: Ventilator Supportive care Anoxic brain injury presumed Admission Status: Inpatient Order (span 2 midnights) Reason for Inpatient Admission: Respiratory failure Diagnosis/Problems Diagnosis/Problems (1) Food in larynx causing asphyxiation, initial encounter Status: Acute (2) Cardiopulmonary arrest with successful resuscitation Status: Acute (3) Non-ST elevation [place] (NSTEMI) Status: Acute (4) Schizophrenia, chronic condition Status: Acute (5) Mixed hyperlipidemia (6) Primary hypertension ROSANGELA ARAUZ DO Jul 13, 2021 06:27
[2021-07-13] MEDS ORDERED: LORazepam INJ 2 MG/ML (ATIVAN) VIAL IVP PRN (07:00)
--- NOTE | 2021-07-13 09:29 | Tele-ICU Progress Note ---
Progress Note video rounds completed 60 y/o male brought to ED in full cardiac arrest with CPR in progress.Intubated in ED with concern for food aspiration as etiology of arrest. According to ED not patient was in a fib He received ASA and therapeutic lovenox for possible [place] and /or a fib Currently HR 90 in NSR EKG shows no fib Vent: 18/450/40%/5 ABG good O2 sat: 99% BP: 126/89 Focused Exam Lactate Level 07/13/21 03:17: Lactic Acid Level 4.82*H 07/13/21 05:24: Lactic Acid Level 2.55*H 07/13/21 07:55: Lactic Acid Level 1.96 Height, Weight, BMI Height: 5'7.00" Weight: 210lbs. 9.0oz. [id number]; 35.50 BMI Method:Actual Lactic Acid Level Laboratory Tests Test 07/13/21 07:55 Lactic Acid Level 1.96 MMOL/L (0.50-2.00) Laboratory Tests 07/13/21 01:22 07/13/21 04:59 Labs Labs Laboratory Tests 07/13/21 00:34: Glucometer 270H 07/13/21 00:45: Blood Gas Puncture Site LEFT RADIAL, Blood Gas Patient Temperature 35.6, Arterial Blood pH 7.07*L, Arterial Blood Partial Pressure CO2 61H, Arterial Blood Partial Pressure O2 415H, Arterial Blood HCO3 17*L, Arterial Blood Total CO2 18.7L, Arterial Blood Oxygen Saturation 99, Arterial Blood Base Excess - 11.7L, Pablo Test YES-POS, Blood Gas Ventilator Setting YES, Blood Gas Inspired Oxygen UNKNOWN 07/13/21 01:22: White Blood Count 8.5, Red Blood Count 4.46, Hemoglobin 13.6, Hematocrit 44, Mean Corpuscular Volume 99, Mean Corpuscular Hemoglobin 31, Mean Corpuscular Hemoglobin Concent 31L, Red Cell Distribution Width 17.9H, Platelet Count 132, Mean Platelet Volume 11.1, Immature Granulocyte % (Auto) 2, Neutrophils (%) (Auto) 47, Lymphocytes (%) (Auto) 43, Monocytes (%) (Auto) 6, Eosinophils (%) (Auto) 2, Basophils (%) (Auto) 0, Neutrophils # (Auto) 3.9, Lymphocytes # (Auto) 3.6, Monocytes # (Auto) 0.5, Eosinophils # (Auto) 0.2, Basophils # (Auto) 0.0, Immature Granulocyte # (Auto) 0.2H, Neutrophils % (Manual) 37, Lymphocytes % (Manual) 53, Monocytes % (Manual) 4, Eosinophils % (Manual) 5, Band Neutrophils 1, Percent Immature Platelet Fraction 3.9, Blood Morphology Comment NORMAL, Sodium Level 144, Potassium Level 3.3L, Chloride Level 104, Carbon Dioxide Level 18L, Anion Gap 22H, Blood Urea Nitrogen 20H, Creatinine 1.36H, Estimat Glomerular Filtration Rate 60, BUN/Creatinine Ratio 15, Glucose Level 219H, Calcium Level 8.5, Corrected Calcium 9.2, Magnesium Level 2.2, Total Bilirubin 0.9, Aspartate Amino Transf (AST/SGOT) 59H, Alanine Aminotransferase (ALT/SGPT) 45, Alkaline Phosphatase 54, Troponin I < 0.028, Total Protein 6.1L, Albumin 3.1L 07/13/21 03:08: Blood Gas Puncture Site RIGHT RADIAL, Blood Gas Patient Temperature 36.2, Arterial Blood pH 7.24*L, Arterial Blood Partial Pressure CO2 61H, Arterial Blood Partial Pressure O2 100H, Arterial Blood HCO3 25, Arterial Blood Total CO2 26.9, Arterial Blood Oxygen Saturation 97, Arterial Blood Base Excess -1.4, Pablo Test YES-POS, Blood Gas Ventilator Setting YES, Blood Gas Inspired Oxygen 100% 07/13/21 03:17: Prothrombin Time 13.4, INR Comment 1.0, Activated Partial Thromboplast Time 33, Lactic Acid Level 4.82*H, Troponin I 0.099H 07/13/21 04:32: Blood Gas Puncture Site LT RADIAL, Blood Gas Patient Temperature 36.4, Arterial Blood pH 7.30*L, Arterial Blood Partial Pressure CO2 56H, Arterial Blood Partial Pressure O2 80, Arterial Blood HCO3 27, Arterial Blood Total CO2 28.8, Arterial Blood Oxygen Saturation 96, Arterial Blood Base Excess 1.2, Pablo Test YES-POS, Blood Gas Ventilator Setting YES, Blood Gas Inspired Oxygen 40% 07/13/21 04:59: White Blood Count 11.7H, Red Blood Count 4.98, Hemoglobin 15.1, Hematocrit 47, Mean Corpuscular Volume 95, Mean Corpuscular Hemoglobin 30, Mean Corpuscular Hemoglobin Concent 32, Red Cell Distribution Width 17.6H, Platelet Count 169, Mean Platelet Volume 9.9, Immature Granulocyte % (Auto) 1, Neutrophils (%) (Auto) 62, Lymphocytes (%) (Auto) 19, Monocytes (%) (Auto) 18H, Eosinophils (%) (Auto) 1, Basophils (%) (Auto) 0, Neutrophils # (Auto) 7.2, Lymphocytes # (Auto) 2.2, Monocytes # (Auto) 2.1H, Eosinophils # (Auto) 0.1, Basophils # (Auto) 0.0, Immature Granulocyte # (Auto) 0.1, Sodium Level 144, Potassium Level 3.4L, Chloride Level 105, Carbon Dioxide Level 23, Anion Gap 16H, Blood Urea Nitrogen 23H, Creatinine 1.02, Estimat Glomerular Filtration Rate 84, BUN/Creatinine Ratio 23, Glucose Level 132H, Calcium Level 8.6, Corrected Calcium 9.1, Phosphorus Level 4.0, Magnesium Level 2.0, Total Bilirubin 1.4H, Aspartate Amino Transf (AST/SGOT) 70H, Alanine Aminotransferase (ALT/SGPT) 51, Alkaline Phosphatase 53, Total Protein 6.8, Albumin 3.4, Triglycerides Level 104 07/13/21 05:24: Lactic Acid Level 2.55*H 07/13/21 07:55: Lactic Acid Level 1.96 JOSELIN NARAYANAN MD Jul 13, 2021 09:29
--- NOTE | 2021-07-13 10:25 | Consultation-Cardiology ---
HPI-Cardiology Cardiology Consultation Date of Consultation 07/13/21 Date of Admission Time Seen by Provider: 10:20 Indication: Acute respiratory failure HPI Patient was seen at bedside, he is intubated and unresponsive. History was obtained by reviewing his record, he is unable to provide any history. 60 years old gentleman with a history of hypertension, left ventricular cuellar tolic dysfunction with congestive heart failure and sleep apnea. He was brought by ambulance after he was found unresponsive, CPR were initiated. There was questionable aspiration. After intubation his EKG showed changes suspicious of ST elevation which resolved after full resuscitation. No known previous cardiac catheterization or ischemic work-up. He was seen in [address] Vasquez and in [address] Hernandez Home Medications & Allergies Allergies: Coded Allergies: No Known Drug Allergies (Unverified , 05/15/10) Home Medication List Reviewed: Yes [id number] Hx Patient Social History Type Used: Cigarettes 2nd Hand Smoke Exposure: No Recent Hopitalizations: No Have you traveled recently?: No Immunizations Up To Date Tetanus Booster (TDap): Less than 5yrs Date of Pneumonia Vaccine: Feb 01, 2012 Date of Influenza Vaccine: Jan 31, 2021 Past Medical History Described below Family Medical History Significant Family History: Heart Disease, Hypertension, Stroke Family Medical Hx Not available at this point Review of Systems-General Review of Systems Constitutional: no symptoms reported, other (Unable to provide review of system) Reviewed Test Results Reviewed Test Results Lab Laboratory Tests Test 07/13/21 00:34 07/13/21 00:45 07/13/21 01:22 07/13/21 03:08 Range/Units Glucometer 270 H 70-110 MG/DL Blood Gas Puncture Site LEFT RADIAL RIGHT RADIAL Blood Gas Patient Temperature 35.6 36.2 Arterial Blood pH 7.07 *L 7.24 *L 7.37-7.43 Arterial Blood Partial Pressure CO2 61 H 61 H 35-45 MMHG Arterial Blood Partial Pressure O2 415 H 100 H 79-93 MMHG Arterial Blood HCO3 17 *L 25 23-27 MMOL/L Arterial Blood Total CO2 18.7 L 26.9 21.0-31.0 MMOL/L Arterial Blood Oxygen Saturation 99 97 94-100 % Arterial Blood Base Excess -11.7 L -1.4 -2.5-2.5 MMOL/L Pablo Test YES-POS YES-POS Blood Gas Ventilator Setting YES YES Blood Gas Inspired Oxygen UNKNOWN 100% White Blood Count 8.5 4.3-11.0 10^3/uL Red Blood Count 4.46 4.30-5.52 10^6/uL Hemoglobin 13.6 13.3-17.7 g/dL Hematocrit 44 40-54 % Mean Corpuscular Volume 99 80-99 fL Mean Corpuscular Hemoglobin 31 25-34 pg Mean Corpuscular Hemoglobin Concent 31 L 32-36 g/dL Red Cell Distribution Width 17.9 H 10.0-14.5 % Platelet Count 132 130-400 10^3/uL Mean Platelet Volume 11.1 9.0-12.2 fL Immature Granulocyte % (Auto) 2 % Neutrophils (%) (Auto) 47 42-75 % Lymphocytes (%) (Auto) 43 12-44 % Monocytes (%) (Auto) 6 0-12 % Eosinophils (%) (Auto) 2 0-10 % Basophils (%) (Auto) 0 0-10 % Neutrophils # (Auto) 3.9 1.8-7.8 10^3/uL Lymphocytes # (Auto) 3.6 1.0-4.0 10^3/uL Monocytes # (Auto) 0.5 0.0-1.0 10^3/uL Eosinophils # (Auto) 0.2 0.0-0.3 10^3/uL Basophils # (Auto) 0.0 0.0-0.1 10^3/uL Immature Granulocyte # (Auto) 0.2 H 0.0-0.1 10^3/uL Neutrophils % (Manual) 37 % Lymphocytes % (Manual) 53 % Monocytes % (Manual) 4 % Eosinophils % (Manual) 5 % Band Neutrophils 1 % Percent Immature Platelet Fraction 3.9 0.0-7.6 % Blood Morphology Comment NORMAL Sodium Level 144 135-145 MMOL/L Potassium Level 3.3 L 3.6-5.0 MMOL/L Chloride Level 104 98-107 MMOL/L Carbon Dioxide Level 18 L 21-32 MMOL/L Anion Gap 22 H 5-14 MMOL/L Blood Urea Nitrogen 20 H 7-18 MG/DL Creatinine 1.36 H 0.60-1.30 MG/DL Estimat Glomerular Filtration Rate 60 BUN/Creatinine Ratio 15 Glucose Level 219 H 70-105 MG/DL Calcium Level 8.5 8.5-10.1 MG/DL Corrected Calcium 9.2 8.5-10.1 MG/DL Magnesium Level 2.2 1.6-2.4 MG/DL Total Bilirubin 0.9 0.1-1.0 MG/DL Aspartate Amino Transf (AST/SGOT) 59 H 5-34 U/L Alanine Aminotransferase (ALT/SGPT) 45 0-55 U/L Alkaline Phosphatase 54 40-136 U/L Troponin I < 0.028 <0.028 NG/ML Total Protein 6.1 L 6.4-8.2 GM/DL Albumin 3.1 L 3.2-4.5 GM/DL Test 07/13/21 03:17 07/13/21 04:32 07/13/21 04:59 07/13/21 05:24 Range/Units Prothrombin Time 13.4 12.2-14.7 SEC INR Comment 1.0 0.8-1.4 Activated Partial Thromboplast Time 33 24-35 SEC Lactic Acid Level 4.82 *H 2.55 *H 0.50-2.00 MMOL/L Troponin I 0.099 H <0.028 NG/ML Blood Gas Puncture Site LT RADIAL Blood Gas Patient Temperature 36.4 Arterial Blood pH 7.30 *L 7.37-7.43 Arterial Blood Partial Pressure CO2 56 H 35-45 MMHG Arterial Blood Partial Pressure O2 80 79-93 MMHG Arterial Blood HCO3 27 23-27 MMOL/L Arterial Blood Total CO2 28.8 21.0-31.0 MMOL/L Arterial Blood Oxygen Saturation 96 94-100 % Arterial Blood Base Excess 1.2 -2.5-2.5 MMOL/L Pablo Test YES-POS Blood Gas Ventilator Setting YES Blood Gas Inspired Oxygen 40% White Blood Count 11.7 H 4.3-11.0 10^3/uL Red Blood Count 4.98 4.30-5.52 10^6/uL Hemoglobin 15.1 13.3-17.7 g/dL Hematocrit 47 40-54 % Mean Corpuscular Volume 95 80-99 fL Mean Corpuscular Hemoglobin 30 25-34 pg Mean Corpuscular Hemoglobin Concent 32 32-36 g/dL Red Cell Distribution Width 17.6 H 10.0-14.5 % Platelet Count 169 130-400 10^3/uL Mean Platelet Volume 9.9 9.0-12.2 fL Immature Granulocyte % (Auto) 1 % Neutrophils (%) (Auto) 62 42-75 % Lymphocytes (%) (Auto) 19 12-44 % Monocytes (%) (Auto) 18 H 0-12 % Eosinophils (%) (Auto) 1 0-10 % Basophils (%) (Auto) 0 0-10 % Neutrophils # (Auto) 7.2 1.8-7.8 10^3/uL Lymphocytes # (Auto) 2.2 1.0-4.0 10^3/uL Monocytes # (Auto) 2.1 H 0.0-1.0 10^3/uL Eosinophils # (Auto) 0.1 0.0-0.3 10^3/uL Basophils # (Auto) 0.0 0.0-0.1 10^3/uL Immature Granulocyte # (Auto) 0.1 0.0-0.1 10^3/uL Sodium Level 144 135-145 MMOL/L Potassium Level 3.4 L 3.6-5.0 MMOL/L Chloride Level 105 98-107 MMOL/L Carbon Dioxide Level 23 21-32 MMOL/L Anion Gap 16 H 5-14 MMOL/L Blood Urea Nitrogen 23 H 7-18 MG/DL Creatinine 1.02 0.60-1.30 MG/DL Estimat Glomerular Filtration Rate 84 BUN/Creatinine Ratio 23 Glucose Level 132 H 70-105 MG/DL Calcium Level 8.6 8.5-10.1 MG/DL Corrected Calcium 9.1 8.5-10.1 MG/DL Phosphorus Level 4.0 2.3-4.7 MG/DL Magnesium Level 2.0 1.6-2.4 MG/DL Total Bilirubin 1.4 H 0.1-1.0 MG/DL Aspartate Amino Transf (AST/SGOT) 70 H 5-34 U/L Alanine Aminotransferase (ALT/SGPT) 51 0-55 U/L Alkaline Phosphatase 53 40-136 U/L Total Protein 6.8 6.4-8.2 GM/DL Albumin 3.4 3.2-4.5 GM/DL Triglycerides Level 104 <150 MG/DL Test 07/13/21 07:55 Range/Units Lactic Acid Level 1.96 0.50-2.00 MMOL/L Physical Exam Physical Exam Vital Signs Vital Signs - First Documented 07/13/21 07/13/21 07/13/21 00:21 03:04 04:00 Temp 35.8 Pulse 123 Resp 29 B/P (MAP) 167/94 (118) Pulse Ox 79 O2 Delivery Ambu Bag O2 Flow Rate 100.00 FiO2 100 Capillary Refill : Less Than 3 Seconds Height, Weight, BMI Height: 5'7.00" Weight: 210lbs. 9.0oz. 95.213118zm; 35.50 BMI Method:Actual General Appearance: Obese, Severe Distress, Other (Sedated and intubated) HEENT: PERRL/EOMI, Other (Large amount of debris including large chunks of meat noted in the pharynx on intubation. This was removed with forceps.) Neck: Supple; No Lymphadenopathy (L), No Lymphadenopathy (R) Respiratory: Crackles (Bilateral after intubation), Other (Arrives apneic and ventilation via bag connected to supraglottic device.) Cardiovascular: No Murmur, Other (Initially pulseless with tachycardic PEA. Tachycardic with weak pulses after return of spontaneous circulation) Gastrointestinal: Soft, Distended Extremity: Pedal Edema, Pelvis Stable Neurologic/Psychiatric: Other (Sedated and intubated) Skin: Cool, Pallor A/P-Cardiology Admission Diagnosis Anoxic brain injury Acute respiratory failure Type II myocardial infarction Hyperlipidemia Assessment/Plan Anoxic brain injury secondary to respiratory failure. Probably secondary to aspiration. Currently ventilator dependent, monitored by eICU. Acute respiratory failure, ventilator dependent, managed by medical team. Congestive heart failure, known to have chronic left ventricular diastolic dysfunction with normal systolic function, I will reevaluate 2D echo Mild elevation in troponin, type II myocardial infarction, dynamic T wave changes could be secondary to the severe hypoxemia and prolonged CPR. Continue to monitor closely and planning to evaluate 2D echocardiogram Started on Lovenox and aspirin. History of hypertension, monitor blood pressure History of hyperlipidemia, has been maintained on simvastatin History of hypothyroidism, managed by primary care physician Peptic ulcer disease, maintained on pantoprazole History of depression SEGUNDO MARTINEZ MD Jul 13, 2021 10:25
[2021-07-13] MEDS ORDERED: SUCCINYLCHOLINE INJ 100 MG/5 ML SYR/VIAL INJ ONE (13:33)
[2021-07-13] MEDS ORDERED: fentaNYL INJ 100 MCG/2 ML AMP IV ONE (13:33)
[2021-07-13] MEDS ORDERED: ETOMIDATE IV SOLN 20 MG/10 ML VIAL IV ONE (13:33)
[2021-07-13] MEDS ORDERED: MIDAZOLAM 5 MG/5 ML (VERSED) VIAL IJ ONE (13:33)
[2021-07-13] MEDS ORDERED: RT-ALBUTEROL/IPRATROPIUM 3 ML (DUONEB) VIAL INH PRN (14:15)
[2021-07-13] MEDS: RT-ALBUTEROL/IPRATROPIUM 3 ML (DUONEB) VIAL INH SCH ×2 (15:06→21:08)
[2021-07-13] MEDS: ENOXAPARIN 100 MG/1 ML (LOVENOX) SYR SC SCH (16:11)
[2021-07-14 02:09] VITALS: BP 137/71
[2021-07-14] MEDS: RT-ALBUTEROL/IPRATROPIUM 3 ML (DUONEB) VIAL INH SCH ×3 (02:09→14:46)
[2021-07-14 02:50] LABS: ABG BASE EXCESS 2.5 MMOL/L (-2.5-2.5); ABG OXYGEN SATURATION 95 % (94-100); ABG PCO2 41 MMHG (35-45); ABG PH 7.43 (7.37-7.43); ABG PO2 69 MMHG (79-93); ABG TCO2 27.8 MMOL/L (21.0-31.0); BASOPHILS % (AUTO) 0 % (0-10); EOSINOPHILS % (AUTO) 0 % (0-10); HEMOGLOBIN 12.6 g/dL (13.3-17.7); MEAN CORPUSCULAR HEMOGLOBIN 31 pg (25-34)
[2021-07-14 02:51] LABS: HEMATOCRIT 39 % (40-54); LYMPHOCYTES # (AUTO) 0.9 10^3/uL (1.0-4.0); LYMPHOCYTES % (AUTO) 10 % (12-44); MEAN CORPUSCULAR HGB CONC 32 g/dL (32-36); MEAN CORPUSCULAR VOLUME 95 fL (80-99); MEAN PLATELET VOLUME 10.1 fL (9.0-12.2); MONOCYTES # (AUTO) 1.7 10^3/uL (0.0-1.0); MONOCYTES % (AUTO) 18 % (0-12); NEUTROPHILS # (AUTO) 6.8 10^3/uL (1.8-7.8); NEUTROPHILS % (AUTO) 72 % (42-75); PLATELET COUNT 113 10^3/uL (130-400); WHITE BLOOD COUNT 9.5 10^3/uL (4.3-11.0)
[2021-07-14 02:52] LABS: ALLENS TEST YES-POS; INSPIRED O2 30%; PATIENT TEMP 37; VENTILATOR YES
[2021-07-14 03:09] LABS: ALBUMIN 2.8 GM/DL (3.2-4.5); POTASSIUM 3.4 MMOL/L (3.6-5.0)
[2021-07-14 03:10] LABS: CALCIUM 7.9 MG/DL (8.5-10.1)
[2021-07-14 03:12] LABS: TOTAL PROTEIN 5.6 GM/DL (6.4-8.2)
[2021-07-14 03:13] LABS: BILIRUBIN,TOTAL 1.3 MG/DL (0.1-1.0)
[2021-07-14] MEDS: POTASSIUM CL 10MEQ/50ML IVPB 50 ML IV SCH ×3 (03:13→04:21)
[2021-07-14] MEDS: KCL 20 MEQ TAB (K-DUR) PO SCH (03:14)
[2021-07-14 03:15] LABS: CREATININE SERUM 0.81 MG/DL (0.60-1.30); PHOSPHORUS 2.4 MG/DL (2.3-4.7)
[2021-07-14] MEDS: NOREPINEPHRINE 8 MG/250 ML 250 ML IV SCH (03:17)
[2021-07-14 03:18] LABS: MAGNESIUM 1.8 MG/DL (1.6-2.4)
[2021-07-14] MEDS: MAGNESIUM 1 GM/100 ML IVPB 100 ML IV SCH (03:18)
[2021-07-14] MEDS: ENOXAPARIN 100 MG/1 ML (LOVENOX) SYR SC SCH ×2 (03:23→16:10)
[2021-07-14] MEDS: inSUlin ASPART (NovoLOG) 1 UNIT/0.01 ML (CHARGE PER UNIT) SC SCH ×2 (05:23→12:35)
[2021-07-14] MEDS: LACTATED RINGERS 1,000 ML IV SCH ×2 (06:14→14:08)
[2021-07-14 07:15] VITALS: BP 135/69
--- NOTE | 2021-07-14 08:50 | Cardiology Progress Note ---
Progress Note-Cardiology Events since last exam Date Seen by Provider: Jul 14, 2021 Time Seen by Provider: 08:37 Events since last exam We are following him due to cardiac arrest. He remains in the intensive care unit intubated and sedated. I spoke to his nurse of today. When the nurses did a weaning trial on 07/13, the patient developed tachycardia and tachypnea but remained unresponsive. He was not following any commands. Because of the tachypnea and tachycardia, he was placed back on full sedation. I am not able to obtain any history from the patient due to the clinical status. Certain portions of this document may have been dictated utilizing voice recognition technology. Inherent to this technology, typographical and grammatical errors may exist. As much as I am diligent to identify and correct these mistakes, some errors may remain in the document. Vitals Last set of Vitals Signs Vital Signs 07/14/21 07/14/21 07/14/21 07:47 07:48 09:00 Temp 36.7 Pulse 89 Resp 27 B/P (MAP) 151/74 Pulse Ox 92 O2 Delivery Mechanical Ventilator O2 Flow Rate 21.00 FiO2 21 Labs Labs Laboratory Tests 07/14/21 02:44 Exam Vital Signs Vital Signs Date Time Temp Pulse Resp B/P (MAP) Pulse Ox O2 Delivery O2 Flow Rate FiO2 07/14/21 09:00 89 27 151/74 92 Mechanical Ventilator 21.00 07/14/21 07:48 21 07/14/21 07:47 36.7 Physical Exam General: Intubated and sedated. Well nourished and appears stated age. Eye: Conjunctivae are clear. There are no xanthelasma. HENT: Normocephalic. Atraumatic. Carotid pulsations 2/2 without bruits. Neck: Jugular venous pressure does not appear elevated. No thyromegaly appreciated. Respiratory: Symmetrical expansion bilaterally. Coarse breath sounds due to the ventilator. Cardiovascular: Normal rate. Regular rhythm. No murmur. No gallop. Point of maximal impulse is not appear displaced. Good pulses equal in all extremities. No edema. Gastrointestinal: Soft. Normal bowel sounds. Skin: Skin turgor is normal. There is no pallor. Musculoskeletal: No obvious deformities. Neurologic: Intubated and sedated. Psychiatric: Not obtainable due to clinical status. Labs Laboratory Tests Test 07/13/21 12:37 07/13/21 17:42 07/13/21 22:40 07/14/21 02:44 Range/Units Glucometer 109 114 H 118 H 70-110 MG/DL White Blood Count 9.5 4.3-11.0 10^3/uL Red Blood Count 4.10 L 4.30-5.52 10^6/uL Hemoglobin 12.6 L 13.3-17.7 g/dL Hematocrit 39 L 40-54 % Mean Corpuscular Volume 95 80-99 fL Mean Corpuscular Hemoglobin 31 25-34 pg Mean Corpuscular Hemoglobin Concent 32 32-36 g/dL Red Cell Distribution Width 18.2 H 10.0-14.5 % Platelet Count 113 L 130-400 10^3/uL Mean Platelet Volume 10.1 9.0-12.2 fL Immature Granulocyte % (Auto) 1 % Neutrophils (%) (Auto) 72 42-75 % Lymphocytes (%) (Auto) 10 L 12-44 % Monocytes (%) (Auto) 18 H 0-12 % Eosinophils (%) (Auto) 0 0-10 % Basophils (%) (Auto) 0 0-10 % Neutrophils # (Auto) 6.8 1.8-7.8 10^3/uL Lymphocytes # (Auto) 0.9 L 1.0-4.0 10^3/uL Monocytes # (Auto) 1.7 H 0.0-1.0 10^3/uL Eosinophils # (Auto) 0.0 0.0-0.3 10^3/uL Basophils # (Auto) 0.0 0.0-0.1 10^3/uL Immature Granulocyte # (Auto) 0.1 0.0-0.1 10^3/uL Percent Immature Platelet Fraction 3.2 0.0-7.6 % Blood Gas Puncture Site R RAD Blood Gas Patient Temperature 37 Arterial Blood pH 7.43 7.37-7.43 Arterial Blood Partial Pressure CO2 41 35-45 MMHG Arterial Blood Partial Pressure O2 69 L 79-93 MMHG Arterial Blood HCO3 27 23-27 MMOL/L Arterial Blood Total CO2 27.8 21.0-31.0 MMOL/L Arterial Blood Oxygen Saturation 95 94-100 % Arterial Blood Base Excess 2.5 -2.5-2.5 MMOL/L Pablo Test YES-POS Blood Gas Ventilator Setting YES Blood Gas Inspired Oxygen 30% Sodium Level 141 135-145 MMOL/L Potassium Level 3.4 L 3.6-5.0 MMOL/L Chloride Level 105 98-107 MMOL/L Carbon Dioxide Level 22 21-32 MMOL/L Anion Gap 14 5-14 MMOL/L Blood Urea Nitrogen 21 H 7-18 MG/DL Creatinine 0.81 0.60-1.30 MG/DL Estimat Glomerular Filtration Rate 101 BUN/Creatinine Ratio 26 Glucose Level 148 H 70-105 MG/DL Calcium Level 7.9 L 8.5-10.1 MG/DL Corrected Calcium 8.9 8.5-10.1 MG/DL Phosphorus Level 2.4 2.3-4.7 MG/DL Magnesium Level 1.8 1.6-2.4 MG/DL Total Bilirubin 1.3 H 0.1-1.0 MG/DL Aspartate Amino Transf (AST/SGOT) 61 H 5-34 U/L Alanine Aminotransferase (ALT/SGPT) 39 0-55 U/L Alkaline Phosphatase 35 L 40-136 U/L Total Protein 5.6 L 6.4-8.2 GM/DL Albumin 2.8 L 3.2-4.5 GM/DL Test 07/14/21 05:25 07/14/21 08:58 Range/Units Glucometer 130 H 70-110 MG/DL Diagnosis/Problems Diagnosis/Problems (1) Cardiopulmonary arrest with successful resuscitation Status: Acute Assessment & Plan: Exact etiology unclear. He remains essentially unresponsive although the fact that he developed tachypnea and tachycardia when the sedation was lowered, this does signify possible brainstem activity. We may need to wait another 24-48 hours to see if he will recover more meaningful brain activity. I suggest that we have him undergo a head CT in the interim. If he does recover meaningful neurologic activity, then we may need to consider further evaluation with a cardiac catheterization. (2) Troponin level elevated Assessment & Plan: This was due to probable type II non-ST elevation myocardial infarction related to the cardiac arrest. I will start him on low strength aspirin as well as statin medication. I have ordered a follow-up troponin le julio. If this has been trending downward, we may be able to change the therapeutic enoxaparin over to prophylactic dosing for preventing deep venous thrombosis. (3) Primary hypertension Assessment & Plan: He did have some intermittent hypotension during this hospitalization which required temporary vasopressor support. We will continue to follow his blood pressures and if they become elevated, consider resuming his outpatient antihypertensive medication. (4) Mixed hyperlipidemia Assessment & Plan: I will restart his atorvastatin. (5) Acute respiratory failure with hypoxemia Assessment & Plan: As above, he remains intubated and sedated. The hospitalist and eICU are managing the ventilator. (6) Anoxic brain injury Assessment & Plan: Most likely related to the cardiac arrest. As above, he may at least have some brainstem activity at this point in time. I have ordered a head CT. We may need to wait another 24-48 hours to see if he will make any meaningful neurologic recovery. CHAGO HERNANDEZ JR, MD Jul 14, 2021 08:50
[2021-07-14] MEDS ORDERED: ASPIRIN 81 MG CHEW (CHILDREN'S ASA) PO ONE (10:00)
--- NOTE | 2021-07-14 10:19 | Tele-ICU Progress Note ---
Subjective Date Seen by a Provider: Jul 14, 2021 Time Seen by a Provider: 09:01 Sepsis Event Evaluation Height, Weight, BMI Height: 5'7.00" Weight: 210lbs. 9.0oz. [id number]; 35.50 BMI Method:Actual Focused Exam Lactate Level 07/13/21 03:17: Lactic Acid Level 4.82*H 07/13/21 05:24: Lactic Acid Level 2.55*H 07/13/21 07:55: Lactic Acid Level 1.96 Exam Exam Patient acknowledged, consented, and participated in this virtual visit which was conducted using real time audio/video Vital Signs Date Time Temp Pulse Resp B/P (MAP) Pulse Ox O2 Delivery O2 Flow Rate FiO2 07/14/21 10:00 71 21 141/64 92 Mechanical Ventilator 21.00 07/14/21 09:00 89 27 151/74 92 Mechanical Ventilator 21.00 07/14/21 08:17 86 120/62 07/14/21 08:00 75 20 126/63 93 Mechanical Ventilator 21.00 07/14/21 07:49 Mechanical Ventilator 21.00 07/14/21 07:48 93 Mechanical Ventilator 21 07/14/21 07:47 36.7 07/14/21 07:39 37.0 07/14/21 07:15 73 21 93 21 07/14/21 07:00 73 20 125/65 96 Mechanical Ventilator 30.00 07/14/21 07:00 72 07/14/21 06:00 63 25 141/69 95 Mechanical Ventilator 30.00 07/14/21 05:15 111 44 96 07/14/21 05:00 65 25 135/67 97 Mechanical Ventilator 30.00 07/14/21 04:00 69 25 128/67 96 Mechanical Ventilator 30.00 07/14/21 04:00 97 Mechanical Ventilator 30 07/14/21 03:25 37.1 Mechanical Ventilator 30.00 07/14/21 03:00 70 25 130/71 96 Mechanical Ventilator 30.00 07/14/21 02:09 65 18 96 30 07/14/21 02:00 63 25 137/71 97 Mechanical Ventilator 30.00 07/14/21 01:00 70 25 120/61 96 Mechanical Ventilator 30.00 07/14/21 01:00 70 07/14/21 00:00 37.0 Mechanical Ventilator 30.00 07/14/21 00:00 96 Mechanical Ventilator 30 07/14/21 00:00 73 25 131/69 96 Mechanical Ventilator 30.00 07/13/21 23:00 75 25 117/65 97 Mechanical Ventilator 30.00 07/13/21 22:59 71 117/66 07/13/21 22:00 75 25 112/62 96 Mechanical Ventilator 30.00 07/13/21 21:08 71 18 96 30 07/13/21 21:00 73 25 117/66 96 Mechanical Ventilator 30.00 07/13/21 20:00 97 Mechanical Ventilator 30 07/13/21 20:00 36.7 07/13/21 20:00 71 25 118/66 97 Mechanical Ventilator 30.00 07/13/21 19:00 37.4 75 25 118/67 96 Mechanical Ventilator 30.00 07/13/21 19:00 77 07/13/21 18:36 79 18 97 30 07/13/21 18:00 89 25 113/68 96 Mechanical Ventilator 40.00 07/13/21 17:00 92 20 117/66 95 Mechanical Ventilator 40.00 07/13/21 16:29 95 Mechanical Ventilator 40 07/13/21 16:20 36.7 07/13/21 16:12 117/67 07/13/21 16:00 84 12 117/67 95 Mechanical Ventilator 40.00 07/13/21 15:06 84 18 97 40 07/13/21 15:00 84 18 120/74 97 Mechanical Ventilator 40.00 07/13/21 14:00 88 18 121/67 97 Mechanical Ventilator 40.00 07/13/21 13:49 36.6 89 97 40 07/13/21 13:00 89 18 127/72 97 Mechanical Ventilator 40.00 07/13/21 12:59 90 07/13/21 12:39 36.6 07/13/21 12:39 97 Mechanical Ventilator 40 07/13/21 12:00 93 34 125/75 97 Mechanical Ventilator 40.00 07/13/21 11:00 101 124/77 96 Mechanical Ventilator 40.00 07/13/21 10:34 112 25 96 40 I & O 07/14/21 07:00 Intake Total 4590 ml Output Total 2125 ml Balance 2465 ml Height & Weight Height: 5'7.00" Weight: 210lbs. 9.0oz. 95.633400sj; 35.50 BMI Method:Actual General Appearance: No Apparent Distress, Chronically ill, Other (Sedated and intubated) HEENT: PERRL/EOMI, Other (Large amount of debris including large chunks of meat noted in the pharynx on intubation. This was removed with forceps.) Neck: Supple; No Lymphadenopathy (L), No Lymphadenopathy (R) Respiratory: Lungs Clear, Normal Breath Sounds Cardiovascular: Regular Rate, Rhythm Capillary Refill: Less Than 3 Seconds Extremity: Pedal Edema, Pelvis Stable Neurologic/Psychiatric: Other (Sedated and intubated) Skin: Cool, Pallor Results Lab Laboratory Tests 07/13/21 01:22 07/13/21 04:59 07/14/21 02:44 Assessment/Plan Assessment/Plan (Tele-ICU Physician , Progress Note ) Available chart/ vitals / labs / Images reviewed Video assessment done using teleICU camera, rest of exam as per RN Discussed with RN , EXAM PER RN Events overnight : Afebrile FiO2 - 21 I/O = pos Drips: Pressors: , hemodynamically stable Sedation gtt: propofol 20 ( RASS ) VENT SETTINGS and ABG reviewed Not candidate for SBT today REVIEWED Cardiovascular Stability / Sedation Score / FI02/PEEP / ABG / CXR Consultants: Hospital course: (07/13) 60/M- Cardiac arrest in field, > 30 min down w/bystander cpr after 10 min, acls to hosp,-- 4 + rounds cpr/epi. Pt. w/ food stuffs/meat asphyxiation w/ meat removed w/ forceps prior to ETT. A/P s/p Cardiopulmonary arrest with ROSC 07/13 - as per cards -etiology unclear. Acute resp failure - post arrhest - full vent support for now - Possible chocking on food - no clear evedense of aspiratio on cxr - follow Encephalopathy - ? anoxic brain damage - CTH pending - assess with decreasing sedation latter todaya Troponin level elevated - as per cards - on full dose of lovenox - follw Will resume antiphysh meds along with decreasing sedation Lines : R IJ 07/13 (Central Line Necessity Reviewed) Salas: + OG: + Nutrition: on hold today Analgesia: Anxiety/ delirium VTE Prophylaxis: rupal full dose Stress Ulcer Prophylaxis: pepcid Glycemic Control: + Plans in collaboration with bedside consultants and IM MDs. Discussed with RN to reach out if any questions or concerns A total of 35 minutes of critical care time was devoted to this patient today, required to treat and/or prevent further deterioration of critical care condition ( as above) . JASON MCKINLEY MD Jul 14, 2021 10:18
[2021-07-14 10:38] VITALS: BP 141/64
[2021-07-14] MEDS ORDERED: TRZ50T PO (10:45)
[2021-07-14] MEDS ORDERED: DIVA-21 PO (10:45)
[2021-07-14] MEDS ORDERED: POLY17PO6 PO (10:45)
[2021-07-14] MEDS ORDERED: SENN-234 PO (10:45)
[2021-07-14] MEDS ORDERED: HYDR12.56 PO (10:45)
[2021-07-14] MEDS ORDERED: OLAN10TA71 PO (10:45)
--- NOTE | 2021-07-14 10:48 | Diagnostic Imaging Report ---
EXAMINATION: CT head without contrast. TECHNIQUE: Multiple contiguous axial images were obtained through the brain without the use of intravenous contrast. All CT scans use one or more of the following dose optimizing techniques: automated exposure control, MA and/or KvP adjustment based on patient size and exam type or iterative reconstruction. HISTORY: Cardiac arrest. Found down. COMPARISON: None available. FINDINGS: There is loss of normal aponte-white matter differentiation throughout the bilateral cerebral hemispheres. Effacement of the cortical sulci is noted. There is hypoattenuation throughout the bilateral basal ganglia. The ventricles are mildly prominent. No evidence of acute hemorrhage. No midline shift. The orbits are normal. Retained secretions are seen in the paranasal sinuses. Mastoid air cells are clear. No soft tissue abnormality is seen. No osseus lesions or fractures are seen. IMPRESSION: Global hypoxic ischemic injury with findings suggestive of brain . Recommend correlation with physical exam and, if indicated, a Nuclear Medicine brain study to further evaluate. Findings were discussed with Dr. Hernandez at 10:45 AM on 07/14/[address] Ed Ahuja. Dictated by: Dictated on workstation # [id number]
--- NOTE | 2021-07-14 12:45 | Progress Note ---
Subjective Subjective/Events-last exam Patient intubated and sedated CT to be completed this AM Review of Systems Unable to obtain due to intubation and sedation Focused Exam Lactate Level 07/13/21 03:17: Lactic Acid Level 4.82*H 07/13/21 05:24: Lactic Acid Level 2.55*H 07/13/21 07:55: Lactic Acid Level 1.96 Objective Exam Last Set of Vital Signs Vital Signs Date Time Temp Pulse Resp B/P (MAP) Pulse Ox O2 Delivery O2 Flow Rate FiO2 07/14/21 12:00 81 20 146/75 95 Mechanical Ventilator 21.00 07/14/21 11:54 37.0 07/14/21 10:38 30 Capillary Refill : Less Than 3 Seconds I&O Intake and Output 07/14/21 00:00 Intake Total 3430 ml Output Total 1525 ml Balance 1905 ml Intake Oral 0 ml IV Total 3400 ml Other 30 ml Output Urine Total 1525 ml Gastric Drainage Total 0 ml # Bowel Movements 1 General: Other (Intubated) Lungs: Clear to Auscultation Heart: Other (systolic murmur, normal rate) Abdomen: Soft Neuro: Other (No gag or corneal reflexes) Results/Procedures Lab Laboratory Tests 07/13/21 17:42: Glucometer 114H 07/13/21 22:40: Glucometer 118H 07/14/21 02:44: White Blood Count 9.5, Red Blood Count 4.10L, Hemoglobin 12.6L, Hematocrit 39L, Mean Corpuscular Volume 95, Mean Corpuscular Hemoglobin 31, Mean Corpuscular Hemoglobin Concent 32, Red Cell Distribution Width 18.2H, Platelet Count 113L, Mean Platelet Volume 10.1, Immature Granulocyte % (Auto) 1, Neutrophils (%) (Auto) 72, Lymphocytes (%) (Auto) 10L, Monocytes (%) (Auto) 18H, Eosinophils (%) (Auto) 0, Basophils (%) (Auto) 0, Neutrophils # (Auto) 6.8, Lymphocytes # (Auto) 0.9L, Monocytes # (Auto) 1.7H, Eosinophils # (Auto) 0.0, Basophils # (Auto) 0.0, Immature Granulocyte # (Auto) 0.1, Percent Immature Platelet Fraction 3.2, Blood Gas Puncture Site R RAD, Blood Gas Patient Temperature 37, Arterial Blood pH 7.43, Arterial Blood Partial Pressure CO2 41, Arterial Blood Partial Pressure O2 69L, Arterial Blood HCO3 27, Arterial Blood Total CO2 27.8, Arterial Blood Oxygen Saturation 95, Arterial Blood Base Excess 2.5, Pablo Test YES-POS, Blood Gas Ventilator Setting YES, Blood Gas Inspired Oxygen 30%, Sodium Level 141, Potassium Level 3.4L, Chloride Level 105, Carbon Dioxide Level 22, Anion Gap 14, Blood Urea Nitrogen 21H, Creatinine 0.81, Estimat Glomerular Filtration Rate 101, BUN/Creatinine Ratio 26, Glucose Level 148H, Calcium Level 7.9L, Corrected Calcium 8.9, Phosphorus Level 2.4, Magnesium Level 1.8, Total Bilirubin 1.3H, Aspartate Amino Transf (AST/SGOT) 61H, Alanine Aminotransferase (ALT/SGPT) 39, Alkaline Phosphatase 35L, Total Protein 5.6L, Albumin 2.8L 07/14/21 05:25: Glucometer 130H 07/14/21 08:58: Troponin I 0.316*H 07/14/21 11:39: Glucometer 161H Microbiology 07/13/21 MRSA Screen - Final, Complete MRSA not isolated Assessment/Plan Assessment/Plan (1) Food in larynx causing asphyxiation, initial encounter Status: Acute Assessment & Plan: 07/14: Patient in ICU intubated and sedated (2) Cardiopulmonary arrest with successful resuscitation Status: Acute (3) Anoxic brain injury Status: Acute Assessment & Plan: 07/14: CT head this AM showed Global hypoxic ishcemic injury consistent with brain , 1230 Ex- called and she is on her way up to hospital, patient does not have formal DPOA (4) Non-ST elevation MA (NSTEMI) Status: Acute Assessment & Plan: 07/14: Cardiology consulted (5) Acute respiratory failure with hypoxemia Status: Acute (6) Schizophrenia, chronic condition Status: Acute ZULY BORGES MD Jul 14, 2021 12:45
[2021-07-14 14:46] VITALS: BP 167/80
[2021-07-14] MEDS ORDERED: RT-ALBUTEROL/IPRATROPIUM 3 ML (DUONEB) VIAL INH PRN (16:15)
[2021-07-14] MEDS ORDERED: morphine INJ 4 MG/ML 1 ML (VIAL/SYRINGE) IV PRN (16:15)
[2021-07-14] MEDS ORDERED: ARTIFICAL TEARS 0.4 ML UNIT DOSE (REFRESH PLUS) OU PRN (16:15)
[2021-07-14] MEDS ORDERED: PROMETHAZINE INJ 25 MG/ML (PHENERGAN) AMP IVP PRN (16:15)
[2021-07-14] MEDS ORDERED: BISACODYL 10 MG SUPP (DULCOLAX) PR PRN (16:15)
[2021-07-14] MEDS ORDERED: GLYCOPYRROLATE 0.2 MG/ML (ROBINUL) 2 ML VIAL IV PRN (16:15)
[2021-07-14] MEDS ORDERED: ACETAMINOPHEN 650 MG SUPP (TYLENOL) PR PRN (16:15)
[2021-07-14] MEDS ORDERED: SALIVA STIMULANT MOUTH SPRAY (BIOTENE) 1.5 OZ MM PRN (16:15)
[2021-07-14] MEDS ORDERED: LORazepam INJ 2 MG/ML (ATIVAN) VIAL IVP PRN (16:15)
[2021-07-14] MEDS ORDERED: ONDANSETRON 4 MG/2 ML (SDV) Z0FRAN IVP PRN (16:15)
[2021-07-15] MEDS ORDERED: FAMOTIDINE 20MG/2ML IV (PEPCID) IVP SCH (09:00)
[2021-07-15] MEDS ORDERED: ASPIRIN 81 MG CHEW (CHILDREN'S ASA) PO SCH (09:00)
== END 2021-07-14 18:03 | disposition expired | DRG 208 ==
LOC: EDUNIT# 00:21 → ER 00:22 → ICU 03:25
PROVIDERS: ADMIT Internal Medicine; ATTEND Family Medicine
PROC: 5A1945Z Respiratory Ventilation, 24-96 Consecutive Hours (ICD-10-PCS; principal; 2021-07-13)
PROC: 0BH18EZ Insertion of Endotracheal Airway into Trachea, Via Natural or Artificial Opening Endoscopic (ICD-10-PCS; 2021-07-13)
PROC: 0CCM7ZZ Extirpation of Matter from Pharynx, Via Natural or Artificial Opening (ICD-10-PCS; 2021-07-13)
PROC: 8E0ZXY6 Isolation (ICD-10-PCS; 2021-07-13)
DX: J96.01 Acute respiratory failure with hypoxia (principal); I21.A1 Myocardial infarction type 2; G93.1 Anoxic brain damage, not elsewhere classified; I50.32 Chronic diastolic (congestive) heart failure; I42.9 Cardiomyopathy, unspecified; F20.0 Paranoid schizophrenia; T17.220A Food in pharynx causing asphyxiation, initial encounter; Z66 Do not resuscitate; Z51.5 Encounter for palliative care; I46.9 Cardiac arrest, cause unspecified; I11.0 Hypertensive heart disease with heart failure; I48.91 Unspecified atrial fibrillation; I45.10 Unspecified right bundle-branch block; E78.2 Mixed hyperlipidemia; K21.9 Gastro-esophageal reflux disease without esophagitis; G47.30 Sleep apnea, unspecified; Z79.82 Long term (current) use of aspirin; Z82.49 Family history of ischemic heart disease and other diseases of the circulatory system
CPT/HCPCS: 31500; 36415; 36680; 51702; 70450; 71045; 80053; 82805; 82947; 83036; 83605; 83735; 84100; 84478; 84484; 85007; 85025; 85027; 85610; 85730; 87070; 87081; 87205; 93005; 93306; 94002; 94003; 94640; 94799; 99291